=== PATIENT | male | born 1935 | race Caucasian/White ===

== ENCOUNTER 2021-05-01 09:59 | Inpatient (IN) ==
--- NOTE | 2021-05-01 10:36 | Emergency Department Note ---
Altered Mental Status HPI General Chief Complaint: Altered Mental Status Stated Complaint: Altered LOC Time Seen by Provider: 05/01/21 10:07 Source: family Mode of arrival: wheelchair Limitations: altered mental status History of Present Illness HPI Narrative: 85-year-old male was brought in by the daughter of the patient's caregiver. Patient apparently was in a correction. He was brought in for altered mental status unclear duration. He is also having a blood in his urine bag. He was admitted under similar circumstances to [facility] last month. Patient is unresponsive at this time. He does have prior DO NOT RESUSCITATE order on record. It is unclear if he has had any fevers or chills. Patient is unable to provide any history. The patient caregivers daughter is here and she is not exactly sure exactly how long this has been going on. Records were reviewed history of hypertension diabetes COPD he had Covid last year. Hyperlipidemia. He also has history of schizophrenia. He has a chronic urinary Saunders catheter. History of metabolic encephalopathy history of aortic stenosis. He has had hypercapnic respiratory failure in the past. He is on home oxygen. Related Data Home Medications Medication Instructions Recorded Confirmed atenolol 50 mg PO DAILY 09/24/16 04/20/21 furosemide 40 mg PO DAILY 09/24/16 04/20/21 glyburide 5 mg PO BIDAC 09/24/16 04/20/21 lisinopril [Zestril] 20 mg PO DAILY 09/24/16 04/20/21 metformin [Glucophage] 1,000 mg PO BID 09/24/16 04/20/21 potassium chloride [Kdur] 20 meq PO DAILY 09/24/16 04/20/21 spironolactone [Aldactone] 25 mg PO BID 09/24/16 04/20/21 trifluoperazine 2 mg PO TID 09/24/16 04/20/21 acetaminophen 500 mg tablet 1,000 mg PO Q6H PRN 04/20/21 04/20/21 atorvastatin 80 mg tablet 80 mg PO QDAY 04/20/21 04/20/21 fluticasone 250 mcg-salmeterol 50 1 inh INHALATION BID 04/20/21 04/20/21 mcg/dose blistr powdr for inhalation insulin glargine 100 unit/mL (3 16 unit SUBCUT QAM ml 04/20/21 04/20/21 mL) subcutaneous pen melatonin 5 mg capsule mg PO 04/20/21 04/20/21 tamsulosin 0.4 mg capsule 0.4 mg PO QDAY 04/20/21 04/20/21 Allergies Allergy/AdvReac Type Severity Reaction Status Date / Time No Known Drug Allergies Allergy Verified 09/24/16 18:17 Review of Systems ROS ROS Narrative: Unobtainable due to patient being unresponsive PFS Narrative Patient History Narrative: Narrative: Medical/Surgical/Family History All Active Problems (Updated 05/01/21 @ 14:34 by Bryn Salinas MD) Acute and chronic respiratory failure with hypercapnia (Acute) Altered mental status (Acute) Congestive heart failure (Acute) Urine retention (Chronic) Hyperglycemia (Chronic) Pulmonary edema (Chronic) Bacteremia (Chronic) Hyperkalemia (Chronic) Metabolic encephalopathy (Chronic) Aortic stenosis (Chronic) Altered mental status (Chronic) Schizophrenia (Chronic) COPD with acute exacerbation (Chronic) Type 2 diabetes mellitus (Chronic) Left lower lobe pneumonia (Chronic) Acute and chronic respiratory failure with hypercapnia (Chronic) Urinary tract infection (Chronic) Medical History Acute and chronic respiratory failure with hypercapnia Altered mental status Aortic stenosis Bacteremia COPD with acute exacerbation Hyperglycemia Hyperkalemia Left lower lobe pneumonia Metabolic encephalopathy Pulmonary edema Schizophrenia Type 2 diabetes mellitus Urinary tract infection Urine retention Surgical History No pertinent past surgical history Family History Other No pertinent family history Social History Smoking Status: Never smoker Exam Narrative Narrative: Vital Signs reviewed. Constitutional: Obese patient he is sitting partially reclined with his head leaning forward Head: Normocephalic, scab on his frontal scalp unclear if there is been any trauma or if he is just been scratching Eyes: PERRLA, EOMI, no conjunctivitis Ear: Normal external exam Oropharynx: Dry oral mucosa Neck: Supple, no lymphadenopathy, no JVD Lungs: Tachypneic breathing labored breath sounds bilaterally Cardiac: Regular rate and rhythm, normal distal pulses, GI: Soft nontender nondistended no guarding no rebound Musculoskeletal: No tenderness, no deformities, no edema, full range of motion Back: no CVA or midline tenderness Neuro: Patient is unresponsive does not respond to painful or verbal stimuli Psychiatric: Unable to assess Skin: Warm, diaphoretic cap refill less than 2 seconds General Limitations: altered mental status Course Consultations Consultation #1: Case discussed with hospitalist Dr. Irizarry who agrees to see and admit patient. Time: 14:54 Vital Signs Vital signs: Vital Signs Pulse Rate 102 H 05/01/21 10:00 Respiratory Rate 24 H 05/01/21 10:00 Blood Pressure 129/66 05/01/21 10:00 Pulse Oximetry (%) 88 L 05/01/21 10:00 Pulse Rate 106 H 05/01/21 14:16 Respiratory Rate 30 H 05/01/21 14:16 Blood Pressure 121/77 05/01/21 13:46 Pulse Oximetry (%) 95 05/01/21 14:16 MDM MDM Narrative Medical decision making narrative: 85-year-old male history of COPD O2 dependent long-term correction resident presents with decreased level of consciousness and tachypnea over the last [address] scan of the head shows no acute abnormality. Chest x-ray showed congestive heart failure. Patient has a prior DNR DO NOT INTUBATE wishes. Caregiver is here at the bedside does confirm these prior wishes. Patient had pretty similar presentation last month and was found to be acute on chronic hypercarbic respiratory failure which improved on BiPAP. Patient has been placed on BiPAP on arrival here has been no significant change in mental status his oxygenation is improved and he is a little bit less tachycardic. Blood cultures were obtained patient given empirically Zofran for the possibility of aspiration pneumonia. White blood cell elevated 17.1 hemoglobin 12.6 metabolic profile notable for potassium 5.5 CO2 31 BUN 35 creatinine 1.6 glucose of 279. Troponin is 0.03. EKG shows no acute ischemic changes there is atrial fibrillation with rapid response. Patient's decreased level of consciousness is certainly due to the hypercarbic respiratory failure. This is most likely related to congestive heart failure and/or COPD exacerbation. Patient will be admitted to the ICU on BiPAP and given Lasix here. I discussed with the patient medical power of disability attorney and caregiver to the bedside he may not improve and there is a possibility that he may decompensate despite the interventions and may not survive the night. Patient caregiver/medical return is aware of the potential to decompensate and potentially go into a full cardiorespiratory failure. His COVID-19 swab was negative here today. Patient remains in unresponsive with mild improvement in his respiratory status. He will be admitted to the ICU. Condition remains critical. Differential Diagnosis Differential Diagnosis: UTI, metabolic derangement, stroke, psychiatric, hypercarbia, pneumonia Lab Data Result diagrams: 05/01/21 10:52 05/01/21 11:45 Labs: Lab Results 05/01/21 05/01/21 05/01/21 Range/Units 10:52 10:52 10:52 WBC 17.1 H (4.5-11.0) K/mcL RBC 4.44 L (4.63-6.08) M/mcL Hgb 12.6 L (13.7-17.5) g/dL Hct 44.2 (40.1-51.0) % MCV 99.5 (80.0-100.0) fL MCH 28.4 (26.0-34.0) pg MCHC 28.5 L (31.0-36.0) g/dL RDW 13.2 (11.5-14.5) % Plt Count 222 (140-440) K/mcL MPV 10.4 (7.4-10.4) fL Seg Neutrophils % 95 H (38-78) % Lymphocytes % 1 L (15-49) % Monocytes % (Manual) 4 (1-12) % Platelet Estimate Normal (Normal) RBC Morphology Normal (Normal) PT (11.9-14.5) sec INR (0.9-1.1) APTT (20.0-37.0) sec VBG Lactic Acid 0.7 (0.5-2.0) mmol/L Sodium TNP Potassium TNP Chloride TNP Carbon Dioxide TNP Anion Gap TNP BUN TNP Creatinine TNP GFR Calculation TNP Glucose TNP Calcium TNP Total Bilirubin TNP AST TNP ALT TNP Alkaline Phosphatase TNP Ammonia (16-60) umol/L Total Creatine Kinase (24-195) U/L Troponin T (<0.03) ng/mL NT-Pro-B Natriuret Pep (<450.0) pg/mL Total Protein TNP Albumin TNP Globulin TNP Albumin/Globulin Ratio TNP Urine Color Urine Appearance Urine pH Ur Specific [place] Urine Protein Urine Glucose (UA) Urine Ketones Urine Occult Blood Urine Nitrate Urine Bilirubin Prot Sulfosalicylic Acd Urine Urobilinogen Ur Leukocyte Esterase Urine RBC Urine WBC Ur Squamous Epith Cells Urine Bacteria Ur Culture Indicated? Urine Opiates Screen Ur Oxycodone Screen Urine Methadone Screen Ur Barbiturates Screen Ur Phencyclidine Scrn Ur Amphetamines Screen U Benzodiazepines Scrn Urine Cocaine Screen U Marijuana (THC) Screen 05/01/21 05/01/21 05/01/21 Range/Units 10:52 10:52 10:52 WBC (4.5-11.0) K/mcL RBC (4.63-6.08) M/mcL Hgb (13.7-17.5) g/dL Hct (40.1-51.0) % MCV (80.0-100.0) fL MCH (26.0-34.0) pg MCHC (31.0-36.0) g/dL RDW (11.5-14.5) % Plt Count (140-440) K/mcL MPV (7.4-10.4) fL Seg Neutrophils % (38-78) % Lymphocytes % (15-49) % Monocytes % (Manual) (1-12) % Platelet Estimate (Normal) RBC Morphology (Normal) PT (11.9-14.5) sec INR (0.9-1.1) APTT (20.0-37.0) sec VBG Lactic Acid (0.5-2.0) mmol/L Sodium Potassium Chloride Carbon Dioxide Anion Gap BUN Creatinine GFR Calculation Glucose Calcium Total Bilirubin AST ALT Alkaline Phosphatase Ammonia < 10 L (16-60) umol/L Total Creatine Kinase 44 (24-195) U/L Troponin T 0.03 H (<0.03) ng/mL NT-Pro-B Natriuret Pep (<450.0) pg/mL Total Protein Albumin Globulin Albumin/Globulin Ratio Urine Color Urine Appearance Urine pH Ur Specific [place] Urine Protein Urine Glucose (UA) Urine Ketones Urine Occult Blood Urine Nitrate Urine Bilirubin Prot Sulfosalicylic Acd Urine Urobilinogen Ur Leukocyte Esterase Urine RBC Urine WBC Ur Squamous Epith Cells Urine Bacteria Ur Culture Indicated? Urine Opiates Screen Ur Oxycodone Screen Urine Methadone Screen Ur Barbiturates Screen Ur Phencyclidine Scrn Ur Amphetamines Screen U Benzodiazepines Scrn Urine Cocaine Screen U Marijuana (THC) Screen 05/01/21 05/01/21 05/01/21 Range/Units 11:45 11:45 11:45 WBC (4.5-11.0) K/mcL RBC (4.63-6.08) M/mcL Hgb (13.7-17.5) g/dL Hct (40.1-51.0) % MCV (80.0-100.0) fL MCH (26.0-34.0) pg MCHC (31.0-36.0) g/dL RDW (11.5-14.5) % Plt Count (140-440) K/mcL MPV (7.4-10.4) fL Seg Neutrophils % (38-78) % Lymphocytes % (15-49) % Monocytes % (Manual) (1-12) % Platelet Estimate (Normal) RBC Morphology (Normal) PT 14.5 (11.9-14.5) sec INR 1.1 (0.9-1.1) APTT 38.0 H (20.0-37.0) sec VBG Lactic Acid (0.5-2.0) mmol/L Sodium 136 Potassium 5.5 H Chloride 97 Carbon Dioxide 31 H Anion Gap 8.0 BUN 35 H Creatinine 1.6 H GFR Calculation 39 Glucose 279 H Calcium 9.2 Total Bilirubin 0.4 AST 10 ALT 16 Alkaline Phosphatase 116 Ammonia (16-60) umol/L Total Creatine Kinase (24-195) U/L Troponin T (<0.03) ng/mL NT-Pro-B Natriuret Pep 4746.0 H (<450.0) pg/mL Total Protein 6.5 Albumin 3.2 Globulin 3.3 Albumin/Globulin Ratio 1.0 Urine Color Urine Appearance Urine pH Ur Specific [place] Urine Protein Urine Glucose (UA) Urine Ketones Urine Occult Blood Urine Nitrate Urine Bilirubin Prot Sulfosalicylic Acd Urine Urobilinogen Ur Leukocyte Esterase Urine RBC Urine WBC Ur Squamous Epith Cells Urine Bacteria Ur Culture Indicated? Urine Opiates Screen Ur Oxycodone Screen Urine Methadone Screen Ur Barbiturates Screen Ur Phencyclidine Scrn Ur Amphetamines Screen U Benzodiazepines Scrn Urine Cocaine Screen U Marijuana (THC) Screen 05/01/21 05/01/21 Range/Units 12:03 12:03 WBC (4.5-11.0) K/mcL RBC (4.63-6.08) M/mcL Hgb (13.7-17.5) g/dL Hct (40.1-51.0) % MCV (80.0-100.0) fL MCH (26.0-34.0) pg MCHC (31.0-36.0) g/dL RDW (11.5-14.5) % Plt Count (140-440) K/mcL MPV (7.4-10.4) fL Seg Neutrophils % (38-78) % Lymphocytes % (15-49) % Monocytes % (Manual) (1-12) % Platelet Estimate (Normal) RBC Morphology (Normal) PT (11.9-14.5) sec INR (0.9-1.1) APTT (20.0-37.0) sec VBG Lactic Acid (0.5-2.0) mmol/L Sodium Potassium Chloride Carbon Dioxide Anion Gap BUN Creatinine GFR Calculation Glucose Calcium Total Bilirubin AST ALT Alkaline Phosphatase Ammonia (16-60) umol/L Total Creatine Kinase (24-195) U/L Troponin T (<0.03) ng/mL NT-Pro-B Natriuret Pep (<450.0) pg/mL Total Protein Albumin Globulin Albumin/Globulin Ratio Urine Color TNP Urine Appearance TNP Urine pH TNP Ur Specific [place] TNP Urine Protein TNP Urine Glucose (UA) TNP Urine Ketones TNP Urine Occult Blood TNP Urine Nitrate TNP Urine Bilirubin TNP Prot Sulfosalicylic Acd TNP Urine Urobilinogen TNP Ur Leukocyte Esterase TNP Urine RBC TNP Urine WBC TNP Ur Squamous Epith Cells TNP Urine Bacteria TNP Ur Culture Indicated? TNP Urine Opiates Screen TNP Ur Oxycodone Screen TNP Urine Methadone Screen TNP Ur Barbiturates Screen TNP Ur Phencyclidine Scrn TNP Ur Amphetamines Screen TNP U Benzodiazepines Scrn TNP Urine Cocaine Screen TNP U Marijuana (THC) Screen TNP ED POC Tests ED POC Tests: JESSICA - SARS Antigen Negative EKG Data EKG #1: EKG attestation: Yes I reviewed and interpreted this EKG. and Yes There are no EKG findings of acute coronary syndrome EKG results narrative: EKG performed at 1109 shows atrial fibrillation rapid response rate of 108 left axis deviation right bundle branch block nonspecific ST changes Discharge Plan Patient/Caregiver Discharge Instructions Pt seen by [employer] MACHINE OPERATOR/PA only: No Clinical Impression: Acute and chronic respiratory failure with hypercapnia, Altered mental status, Congestive heart failure Patient Disposition: Xfer As Inpt ([facility]) Condition: Critical Follow up with: Nic Schuler DO [Primary Care Provider] - Prescriptions: No Action furosemide 40 MG tablet 40 mg PO DAILY RF: 0 glyburide 5 MG tablet 5 mg PO BIDAC RF: 0 trifluoperazine 2 MG tablet 2 mg PO TID RF: 0 lisinopril [Zestril] 20 MG tablet 20 mg PO DAILY RF: 0 spironolactone [Aldactone] 25 MG tablet 25 mg PO BID RF: 0 potassium chloride [Klor-Con M20] 20 MEQ tablet 20 meq PO DAILY RF: 0 metformin [Glucophage] 1,000 MG tablet 1,000 mg PO BID RF: 0 atenolol 50 MG tablet 50 mg PO DAILY RF: 0 melatonin 5 mg capsule PO RF: 0 atorvastatin [Lipitor] 80 mg tablet 80 mg PO QDAY RF: 0 tamsulosin 0.4 mg capsule 0.4 mg PO QDAY RF: 0 fluticasone propion-salmeterol [Wixela Inhub] 250-50 mcg/dose blister with device 1 inh inhalation BID RF: 0 Lantus Solostar U-100 Insulin 100 unit/mL (3 mL) insulin pen 16 unit subcut QAM RF: 0 acetaminophen [Tylenol Extra Strength] 500 mg tablet 1,000 mg PO Q6H PRNRF: 0
[2021-05-01 11:34] LABS: Hematocrit 44.2 % (40.1-51.0); Hemoglobin 12.6 g/dL (13.7-17.5); Mean Cell Volume 99.5 fL (80.0-100.0); Mean Corpuscular HGB Conc 28.5 g/dL (31.0-36.0); Mean Platelet Volume 10.4 fL (7.4-10.4); Platelet Count 222 K/mcL (140-440); RBC 4.44 M/mcL (4.63-6.08); Red Cell Distribution Width 13.2 % (11.5-14.5); WBC 17.1 K/mcL (4.5-11.0)
[2021-05-01 11:45] LABS: Creatine Kinase 44 U/L (24-195)
[2021-05-01] MEDS ORDERED: cefTRIAXone 1 GM VIAL IV ONE (11:50)
[2021-05-01] MEDS ORDERED: PIPERACILLIN SODIUM/TAZOBACTAM 3.375 GM in DEXTROSE 5% IN WATER 50 ML IV ONE (11:51)
[2021-05-01 12:33] LABS: Lymphocytes % 1 % (15-49); Monocytes % (Manual) 4 % (1-12); Platelet Estimate NORMAL (Normal); RBC Morphology NORMAL (Normal); Segmented Neutrophils % 95 % (38-78)
[2021-05-01 12:34] LABS: ALT/SGPT 16 U/L (<40); AST/SGOT 10 U/L (<40); Albumin 3.2 gm/dL (3.2-5.2); Alkaline Phosphatase 116 U/L (39-117); Bilirubin,Total 0.4 mg/dL (0.1-1.0); Blood Urea Nitrogen 35 mg/dL (8-23); Calcium 9.2 mg/dL (8.6-10.4); Carbon Dioxide 31 mmol/L (22-30); Chloride 97 mmol/L (96-108); Globulin 3.3 gm/dL (2.2-3.7); Glomerular Filtration Rate 39; Glucose 279 mg/dL (70-105)
[2021-05-01 12:50] LABS: INR 1.1 (0.9-1.1); Prothrombin Time 14.5 sec (11.9-14.5)
--- NOTE | 2021-05-01 13:57 | XRay Report ---
HISTORY: Shortness of breath, COPD, decreased level of consciousness FINDINGS: Lung volumes are small due to poor inspiration. There is a diffuse perihilar infiltrate in the central portion of the left lung and a milder infiltrate centrally and inferiorly in the right lung. The heart is moderately enlarged but magnified by portable technique and poor inspiration. There is a dual-chamber pacemaker. The pulmonary vessels are obscured by the alveolar opacities. Small left-sided pleural effusion is present. IMPRESSION: Congestive heart failure with pulmonary edema. Superimposed pneumonia cannot be excluded. Interpreted and Authenticated by: Javier Rojas 05/01/21
--- NOTE | 2021-05-01 14:22 | Cat Scan Report ---
History: Decreased level of consciousness TECHNIQUE: The brain was imaged without contrast in axial plane at 2.5 mm intervals. The radiation exposure was limited using dose reduction technology. FINDINGS: There are age-related degenerative changes with mild generalized atrophy. There are also ill-defined zones of decreased attenuation in the centrum semiovale within the frontal and parietal lobes bilaterally. There is no evidence of an infarct. No hemorrhage or mass effect are present. The ventricles are normal in size. There is no abnormal extra-axial fluid collection. There are calcified plaques in the vertebral arteries and cavernous portions of both carotid arteries at the skull base. There is a 9 mm mucous retention cyst or polyp in the right side of the sphenoid sinus. Remainder of the visualized sinuses are clear. IMPRESSION: Age-related degenerative changes and no acute abnormality is detected. Dr. Salinas was called with the report Interpreted and Authenticated by: Javier Rojas 05/01/21
[2021-05-01] MEDS ORDERED: FUROSEMIDE 40 MG/4 ML VIAL IV ONE (14:29)
--- NOTE | 2021-05-01 15:38 | Internal Med History&Physical ---
HPI History of Present Illness Patient information: Note initiated : 05/01/21 at 3:22 pm Service Date, if different from initiated Date: [] Patient: Vincent Caba a 85 y/o M admitted on for Altered LOC. Chief Complaint: [] History of present illness: Mr. Caba is a 85 year old M Presents the ED after found to have decreased responsiveness at the nursing facility. Patient is accompanied by a power of bed bug exterminator who is a close friend as patient does not have family around. Sounds like he was in his normal state of health until yesterday, the power of bed bug exterminator says the physician at the nursing facility want to get him into see his urologist. Today he sounds like he ate less of his breakfast but with otherwise hearing normal when he became poorly responsive and brought to the ED. In the ED he was found to be hypercapnic with a CO2 of 123 and a pH of 7.1. Chest x-ray with pulmonary edema. Patient unresponsive. Patient was recently admitted to [facility] in March for a hypercapnic respiratory failure was put on BiPAP steroids and antibiotics at that time and he had urinary retention so House catheter was placed and has been following with Dr. Stewart outpatient. He has a pacemaker for history of complete heart block. Covid test in the ED was negative. Unable to gather review of systems given the patient's mental status. PFSH PFSH All Active Problems (Updated 05/01/21 @ 14:34 by Bryn Salinas MD) Acute and chronic respiratory failure with hypercapnia (Acute) Altered mental status (Acute) Congestive heart failure (Acute) Urine retention (Chronic) Hyperglycemia (Chronic) Pulmonary edema (Chronic) Bacteremia (Chronic) Hyperkalemia (Chronic) Metabolic encephalopathy (Chronic) Aortic stenosis (Chronic) Altered mental status (Chronic) Schizophrenia (Chronic) COPD with acute exacerbation (Chronic) Type 2 diabetes mellitus (Chronic) Left lower lobe pneumonia (Chronic) Acute and chronic respiratory failure with hypercapnia (Chronic) Urinary tract infection (Chronic) Medical History Acute and chronic respiratory failure with hypercapnia Altered mental status Aortic stenosis Bacteremia COPD with acute exacerbation Hyperglycemia Hyperkalemia Left lower lobe pneumonia Metabolic encephalopathy Pulmonary edema Schizophrenia Type 2 diabetes mellitus Urinary tract infection Urine retention Surgical History No pertinent past surgical history Family History Other No pertinent family history MEDS/ALLERGIES Home Medications and Allergies Home Medications Medication Instructions Recorded Confirmed Type atenolol 50 mg PO DAILY 09/24/16 04/20/21 History furosemide 40 mg PO DAILY 09/24/16 04/20/21 History glyburide 5 mg PO BIDAC 09/24/16 04/20/21 History lisinopril [Zestril] 20 mg PO DAILY 09/24/16 04/20/21 History metformin [Glucophage] 1,000 mg PO BID 09/24/16 04/20/21 History potassium chloride [Kdur] 20 meq PO DAILY 09/24/16 04/20/21 History spironolactone [Aldactone] 25 mg PO BID 09/24/16 04/20/21 History trifluoperazine 2 mg PO TID 09/24/16 04/20/21 History acetaminophen 500 mg tablet 1,000 mg PO Q6H PRN 04/20/21 04/20/21 History atorvastatin 80 mg tablet 80 mg PO QDAY 04/20/21 04/20/21 History fluticasone 250 mcg-salmeterol 50 1 inh INHALATION BID 04/20/21 04/20/21 History mcg/dose blistr powdr for inhalation insulin glargine 100 unit/mL (3 16 unit SUBCUT QAM ml 04/20/21 04/20/21 History mL) subcutaneous pen melatonin 5 mg capsule mg PO 04/20/21 04/20/21 History tamsulosin 0.4 mg capsule 0.4 mg PO QDAY 04/20/21 04/20/21 History Allergies Allergy/AdvReac Type Severity Reaction Status Date / Time No Known Drug Allergies Allergy Verified 09/24/16 18:17 EXAM Constitutional Vitals: Pulse Resp BP Pulse Ox 65 10 L 109/56 98 05/01/21 15:18 05/01/21 15:18 05/01/21 15:18 05/01/21 15:18 Exam: General: Unresponsive and on BiPAP, obese Eyes/N/T: PERRL, Head/Neck: neck supple, normocephalic atraumatic, JVD CV: Regular with occasional irregularity, No murmurs, normal s1/s2 Pulm: Severely diminished b/l, no wheezing Abd: soft, nontender, +BS x4 Ext: no clubbing/cyanosis, 2-3+ b/l LE edema Neuro: Patient unresponsive at this time including to touch and voice. Skin: warm/dry DATA Data Completed and Pending Labs: Labs from last 24 hours 05/01/21 05/01/21 05/01/21 12:03 12:03 11:45 WBC RBC Hgb Hct MCV MCH MCHC RDW Plt Count MPV Seg Neutrophils % Lymphocytes % Monocytes % (Manual) Platelet Estimate RBC Morphology PT INR APTT VBG Lactic Acid Sodium 136 Potassium 5.5 H Chloride 97 Carbon Dioxide 31 H Anion Gap 8.0 BUN 35 H Creatinine 1.6 H GFR Calculation 39 Glucose 279 H Calcium 9.2 Total Bilirubin 0.4 AST 10 ALT 16 Alkaline Phosphatase 116 Ammonia Total Creatine Kinase Troponin T NT-Pro-B Natriuret Pep Total Protein 6.5 Albumin 3.2 Globulin 3.3 Albumin/Globulin Ratio 1.0 Urine Color TNP Urine Appearance TNP Urine pH TNP Ur Specific [place] TNP Urine Protein TNP Urine Glucose (UA) TNP Urine Ketones TNP Urine Occult Blood TNP Urine Nitrate TNP Urine Bilirubin TNP Prot Sulfosalicylic Acd TNP Urine Urobilinogen TNP Ur Leukocyte Esterase TNP Urine RBC TNP Urine WBC TNP Ur Squamous Epith Cells TNP Urine Bacteria TNP Ur Culture Indicated? TNP Urine Opiates Screen TNP Ur Opiates Confirm Pending Ur Oxycodone Screen TNP Urine Methadone Screen TNP Ur Methadone Confirm Pending Ur Barbiturates Screen TNP Ur Barbiturate Confirm Pending Ur Phencyclidine Scrn TNP Urine PCP Confirm Pending Ur Amphetamines Screen TNP U Amphetamines Confirm Pending U Benzodiazepines Scrn TNP U Benzodiazepine Confm Pending Urine Cocaine Screen TNP Urine Cocaine Confirm Pending U Cannabinoids Confirm Pending U Marijuana (THC) Screen TNP 05/01/21 05/01/21 05/01/21 11:45 11:45 10:52 WBC RBC Hgb Hct MCV MCH MCHC RDW Plt Count MPV Seg Neutrophils % Lymphocytes % Monocytes % (Manual) Platelet Estimate RBC Morphology PT 14.5 INR 1.1 APTT 38.0 H VBG Lactic Acid Sodium Potassium Chloride Carbon Dioxide Anion Gap BUN Creatinine GFR Calculation Glucose Calcium Total Bilirubin AST ALT Alkaline Phosphatase Ammonia Total Creatine Kinase Troponin T 0.03 H NT-Pro-B Natriuret Pep 4746.0 H Total Protein Albumin Globulin Albumin/Globulin Ratio Urine Color Urine Appearance Urine pH Ur Specific [place] Urine Protein Urine Glucose (UA) Urine Ketones Urine Occult Blood Urine Nitrate Urine Bilirubin Prot Sulfosalicylic Acd Urine Urobilinogen Ur Leukocyte Esterase Urine RBC Urine WBC Ur Squamous Epith Cells Urine Bacteria Ur Culture Indicated? Urine Opiates Screen Ur Opiates Confirm Ur Oxycodone Screen Urine Methadone Screen Ur Methadone Confirm Ur Barbiturates Screen Ur Barbiturate Confirm Ur Phencyclidine Scrn Urine PCP Confirm Ur Amphetamines Screen U Amphetamines Confirm U Benzodiazepines Scrn U Benzodiazepine Confm Urine Cocaine Screen Urine Cocaine Confirm U Cannabinoids Confirm U Marijuana (THC) Screen 05/01/21 05/01/21 05/01/21 10:52 10:52 10:52 WBC 17.1 H RBC 4.44 L Hgb 12.6 L Hct 44.2 MCV 99.5 MCH 28.4 MCHC 28.5 L RDW 13.2 Plt Count 222 MPV 10.4 Seg Neutrophils % 95 H Lymphocytes % 1 L Monocytes % (Manual) 4 Platelet Estimate Normal RBC Morphology Normal PT INR APTT VBG Lactic Acid Sodium Potassium Chloride Carbon Dioxide Anion Gap BUN Creatinine GFR Calculation Glucose Calcium Total Bilirubin AST ALT Alkaline Phosphatase Ammonia < 10 L Total Creatine Kinase 44 Troponin T NT-Pro-B Natriuret Pep Total Protein Albumin Globulin Albumin/Globulin Ratio Urine Color Urine Appearance Urine pH Ur Specific [place] Urine Protein Urine Glucose (UA) Urine Ketones Urine Occult Blood Urine Nitrate Urine Bilirubin Prot Sulfosalicylic Acd Urine Urobilinogen Ur Leukocyte Esterase Urine RBC Urine WBC Ur Squamous Epith Cells Urine Bacteria Ur Culture Indicated? Urine Opiates Screen Ur Opiates Confirm Ur Oxycodone Screen Urine Methadone Screen Ur Methadone Confirm Ur Barbiturates Screen Ur Barbiturate Confirm Ur Phencyclidine Scrn Urine PCP Confirm Ur Amphetamines Screen U Amphetamines Confirm U Benzodiazepines Scrn U Benzodiazepine Confm Urine Cocaine Screen Urine Cocaine Confirm U Cannabinoids Confirm U Marijuana (THC) Screen 05/01/21 05/01/21 10:52 10:52 WBC RBC Hgb Hct MCV MCH MCHC RDW Plt Count MPV Seg Neutrophils % Lymphocytes % Monocytes % (Manual) Platelet Estimate RBC Morphology PT INR APTT VBG Lactic Acid 0.7 Sodium TNP Potassium TNP Chloride TNP Carbon Dioxide TNP Anion Gap TNP BUN TNP Creatinine TNP GFR Calculation TNP Glucose TNP Calcium TNP Total Bilirubin TNP AST TNP ALT TNP Alkaline Phosphatase TNP Ammonia Total Creatine Kinase Troponin T NT-Pro-B Natriuret Pep Total Protein TNP Albumin TNP Globulin TNP Albumin/Globulin Ratio TNP Urine Color Urine Appearance Urine pH Ur Specific [place] Urine Protein Urine Glucose (UA) Urine Ketones Urine Occult Blood Urine Nitrate Urine Bilirubin Prot Sulfosalicylic Acd Urine Urobilinogen Ur Leukocyte Esterase Urine RBC Urine WBC Ur Squamous Epith Cells Urine Bacteria Ur Culture Indicated? Urine Opiates Screen Ur Opiates Confirm Ur Oxycodone Screen Urine Methadone Screen Ur Methadone Confirm Ur Barbiturates Screen Ur Barbiturate Confirm Ur Phencyclidine Scrn Urine PCP Confirm Ur Amphetamines Screen U Amphetamines Confirm U Benzodiazepines Scrn U Benzodiazepine Confm Urine Cocaine Screen Urine Cocaine Confirm U Cannabinoids Confirm U Marijuana (THC) Screen A/P Narrative A/P Narrative: A: *Acute on chronic hypoxic/hypercapnic respiratory failure: likely 2/2 CHF & -covid neg *Acute on chronic diastolic (grade II) CHF w/Pulm edema: -on BB/ACEI/Lasix/aldactone @home *moderate Aoritc Stenosis: contrubiting to above *Encephalopathy: 2/2 above -CT brain no acute *COPD (on prn O2@facility): *Hematuria with h/o UR with BPH and House in place since march *Leukocytosis: Infectious versus reactive *CKD IIIB: stable *Anemia, chronic: *DM: *HTN/HLD: BB/ACEI/Lasix/aldactone @home *h/o schizophrenia: on Trifluoperazine *Obese *Generalized weakness/deconditioning/poor functional status: Has been wheelchair-bound since August 2019 P: -Bipap, wean as able -f/u ABG -IV diuresis -empric abx for now -check crp/pct/man diff and SC in search of infection -check rvp -basal and SSI -pulmicort nebs until able to use own IH's -restart BB when euvolemic, ACEI held for low BP -f/u with urology, maintain house -PT/OT -ppx: SCD (hold chemical given gross hematuria) DNR per POA Time Spent With Patient Time: Total time spent is greater than 50% in coordination of care (as documented) at patient's floor/unit and/or counseling patient:
[2021-05-01] MEDS ORDERED: DEXTROSE 31 GM ORAL.SUSP PO PRN (16:33)
[2021-05-01] MEDS ORDERED: MAGNESIUM SULFATE 2 GM/50 ML BAG IV PRN (16:33)
[2021-05-01] MEDS ORDERED: METOCLOPRAMIDE 10 MG/2 ML VIAL IV PRN (16:33)
[2021-05-01] MEDS ORDERED: DEXTROSE 50% 50 ML VIAL IV PRN (16:33)
[2021-05-01] MEDS ORDERED: POTASSIUM CHLORIDE 40 MEQ in DEXTROSE 5% IN WATER 500 ML IV PRN (16:33)
[2021-05-01] MEDS ORDERED: POTASSIUM CHLORIDE 20 MEQ TABLET PO PRN ×2 (16:33)
[2021-05-01] MEDS ORDERED: ONDANSETRON 4 MG/2 ML VIAL IV PRN (16:33)
[2021-05-01] MEDS ORDERED: METOPROLOL TARTRATE 5 MG/5 ML VIAL IV PRN (16:33)
[2021-05-01] MEDS ORDERED: ACETAMINOPHEN 325 MG TABLET PO PRN (16:33)
[2021-05-01 17:10] LABS: Appearance,Urine TURBID (Clear); Bacteria,Urine MANY /hpf (0); Bilirubin,Urine Negative (Negative); Color,Urine AMBER; Culture Indicated,Urine yes; Glucose,Urine (UA) >=500 mg/dL (Negative); Ketones,Urine Negative (Negative); Leukocyte Esterase,Urine 75 /ug (Negative); Mucus,Urine MOD /hpf; Nitrate,Urine Negative (Negative); Protein,Urine 100 mg/dL (Negative); Specific Gravity,Urine 1.018 (1.000-1.035); Urine Blood >=1.0 mg/dL (Negative); Urine RBC > 182 /hpf (0-1); Urine Squamous Epithelial Cell 0 /hpf (0-4); Urine WBC > 182 /hpf (0-4); Urobilinogen,Urine Negative
[2021-05-01] MEDS: INSULIN LISPRO 1 UNIT/0.01 ML UNIT SQ SCH (17:57)
[2021-05-01] MEDS: PIPERACILLIN SODIUM/TAZOBACTAM 3.375 GM in DEXTROSE 5% IN WATER 50 ML IV SCH (18:01)
[2021-05-01 18:32] LABS: Hypochromasia 2+ (None Seen); Lymphocytes % 3 % (15-49); Monocytes % (Manual) 9 % (1-12); Platelet Estimate NORMAL (Normal); RBC Morphology ABNORMAL (Normal); Segmented Neutrophils % 88 % (38-78)
[2021-05-01] MEDS: BUDESONIDE 0.5 MG/2 ML AMPUL.NEB NEB SCH ×2 (19:41→20:50)
[2021-05-01 19:42] LABS: Amphetamine Screen,Urine None detected; Barbiturate Screen,Urine None detected; Benzodiazepines Screen,Urine None detected; Cannabinoid Screen,Urine None detected; Cocaine Screen,Urine None detected; Opiate Screen,Urine None detected; Oxycodone, Urine Screen None detected; Phencyclidine Screen,Urine None detected
[2021-05-01] MEDS: IPRATROPIUM/ALBUTEROL 3 ML AMPUL.NEB NEB PRN (20:50)
[2021-05-01] MEDS ORDERED: TRIFLUOPERAZINE 2 MG PO SCH (21:00)
[2021-05-01] MEDS: INSULIN GLARGINE, HUMAN 1 UNIT/0.01 ML SQ SCH (21:32)
[2021-05-01] MEDS: 0.9 % SODIUM CHLORIDE 10 ML SYRINGE IV SCH (21:33)
[2021-05-01] MEDS: FUROSEMIDE 40 MG/4 ML VIAL IV SCH (21:33)
[2021-05-01] MEDS: MELATONIN 3 MG TABLET PO SCH (21:34)
[2021-05-01] MEDS: ATORVASTATIN 40 MG TABLET PO SCH (21:35)
[2021-05-01] MEDS: DOCUSATE SODIUM 100 MG CAPSULE PO SCH (21:35)
[2021-05-01] MEDS: FLUTICASONE/SALMETEROL 250/50 INHALER #14 INH SCH (21:40)
[2021-05-02] MEDS: INSULIN LISPRO 1 UNIT/0.01 ML UNIT SQ SCH ×5 (01:10→23:50)
[2021-05-02] MEDS: PIPERACILLIN SODIUM/TAZOBACTAM 3.375 GM in DEXTROSE 5% IN WATER 50 ML IV SCH ×5 (01:13→23:43)
[2021-05-02] MEDS: 0.9 % SODIUM CHLORIDE 10 ML SYRINGE IV SCH ×3 (05:32→21:04)
[2021-05-02 06:59] LABS: Hematocrit 38.9 % (40.1-51.0); Hemoglobin 11.3 g/dL (13.7-17.5); Mean Cell Volume 95.1 fL (80.0-100.0); Mean Platelet Volume 10.7 fL (7.4-10.4); Platelet Count 211 K/mcL (140-440); RBC 4.09 M/mcL (4.63-6.08); Red Cell Distribution Width 13.1 % (11.5-14.5); WBC 14.6 K/mcL (4.5-11.0)
[2021-05-02] MEDS: FLUTICASONE/SALMETEROL 250/50 INHALER #14 INH SCH ×2 (07:23→20:56)
[2021-05-02 07:55] LABS: ALT/SGPT 13 U/L (<40); AST/SGOT 10 U/L (<40); Albumin/Globulin Ratio 1.1 (1.0-2.3); Alkaline Phosphatase 86 U/L (39-117); Bilirubin,Direct < 0.2 mg/dL (0-0.3); Bilirubin,Total 0.3 mg/dL (0.1-1.0); Blood Urea Nitrogen 46 mg/dL (8-23); Carbon Dioxide 33 mmol/L (22-30); Chloride 98 mmol/L (96-108); Globulin 2.8 gm/dL (2.2-3.7); Glomerular Filtration Rate 28; Glucose 114 mg/dL (70-105); Lactate Dehydrogenase 188 U/L (135-225); Phosphorous 4.8 mg/dL (2.5-4.5); Triglycerides 62 mg/dL (<150); Uric Acid 6.3 mg/dL (2.5-8.0)
--- NOTE | 2021-05-02 08:31 | Internal Med Progress Note ---
SUBJECTIVE Subjective Patient information: Note initiated : 05/02/21 at 8:29 am Service Date, if different from initiated Date: [] Patient: Vincent Caba 85 y/o M admitted on 05/01/21 for Altered LOC. Chief Complaint: [] Interval history: History of present illness: Mr. Caba is a 85 year old M Presents the ED after found to have decreased responsiveness at the nursing facility. Patient is accompanied by a power of mud analysis well logging operator who is a close friend as patient does not have family around. Sounds like he was in his normal state of health until yesterday, the power of mud analysis well logging operator says the physician at the nursing facility want to get him into see his urologist. Today he sounds like he ate less of his breakfast but with otherwise hearing normal when he became poorly responsive and brought to the ED. In the ED he was found to be hypercapnic with a CO2 of 123 and a pH of 7.1. Chest x-ray with pulmonary edema. Patient unresponsive. Patient was recently admitted to [facility] in March for a hypercapnic respiratory failure was put on BiPAP steroids and antibiotics at that time and he had urinary retention so House catheter was placed and has been following with Dr. Stewart outpatient. He has a pacemaker for history of complete heart block. Covid test in the ED was negative. 05/02 Patient opening his eyes and responding now. House flushed several times through the night and is now draining clear yellow fluid instead of hematuria. On BiPAP and difficult to obtain review of systems but is nodding head to occasional questions and following commands Constitutional Vitals: Vital Signs Temp Pulse Resp BP Pulse Ox 98.4 F 121 H 38 H 98/64 98 05/02/21 08:01 05/02/21 07:20 05/02/21 08:01 05/02/21 08:01 05/02/21 08:01 Period Temp Pulse Resp BP Sys/Kulkarni Pulse Ox Last 24 Hr 95.8 F-98.4 F 31-130 0-45 83-166/49-115 83-100 Intake and Output 05/01/21 05/02/21 05/02/21 21:59 05:59 13:59 Intake Total 100 50 50 Output Total 500 200 75 Balance -400 -150 -25 Weight 111.312 kg Intake & Output: Intake & Output 05/01/21 05/02/21 05/02/21 21:59 05:59 13:59 Intake Total 100 50 50 Output Total 500 200 75 Balance -400 -150 -25 Weight 111.312 kg Intake: IV 100 50 50 Zosyn 3.375 gm In Dextrose 5% 100 50 50 in Water 50 ml @ 100 mls/hr IV Q6H [facility] Rx#:[id number] Output: Urine Catheter Amount 500 200 75 Other: Urine Appearance Sediment Cloudy Clear Hematuria Sediment Large Blood Clots Hematuria Small Blood Clots Uretheral (House) Hematuria Urine Color Light Hillary Dark Hillary Bright Yellow Red Brown Dark Red Urine Odor Normal Normal Exam: General: Patient drowsy but awakens to voice, no acute distress eyes/N/T: EOMI head/Neck: neck supple, JVD CV: Regular with occasional irregularity, No murmurs, Pulm: Severely diminished b/l initially but much better aeration now, no wheezing Abd: soft, nontender, +BS x4 Ext: no clubbing/cyanosis, 2-3+ b/l LE edema Neuro: Awakens to voice follows commands and nods head to questions Skin: warm/dry OBJ DATA Labs CBC & Chem 7: 05/02/21 05:41 05/02/21 05:41 Labs: Abnormal Lab Results 05/02/21 05/02/21 05/01/21 05:41 05:41 17:30 WBC 14.6 H RBC 4.09 L Hgb 11.3 L Hct 38.9 L MCHC 29.0 L MPV 10.7 H Seg Neutrophils % 88 H Lymphocytes % 3 L RBC Morphology Abnormal A Hypochromasia 2+ A APTT Potassium Carbon Dioxide 33 H BUN 46 H Creatinine 2.1 H Glucose 114 H Phosphorus 4.8 H Ammonia Troponin T C-Reactive Protein NT-Pro-B Natriuret Pep 8258.0 H Total Protein 5.8 L Albumin 3.0 L Procalcitonin Urine Appearance Urine Protein Urine Glucose (UA) Urine Occult Blood Ur Leukocyte Esterase Urine RBC Urine WBC Urine Bacteria Urine Mucus 05/01/21 05/01/21 05/01/21 16:09 15:56 15:34 WBC RBC Hgb Hct MCHC MPV Seg Neutrophils % Lymphocytes % RBC Morphology Hypochromasia APTT Potassium Carbon Dioxide BUN Creatinine Glucose Phosphorus Ammonia Troponin T C-Reactive Protein 13.80 H NT-Pro-B Natriuret Pep Total Protein Albumin Procalcitonin 0.35 H Urine Appearance Turbid A Urine Protein 100 A Urine Glucose (UA) >=500 A Urine Occult Blood >=1.0 A Ur Leukocyte Esterase 75 A Urine RBC > 182 H Urine WBC > 182 H Urine Bacteria Many A Urine Mucus Mod A 05/01/21 05/01/21 05/01/21 11:45 11:45 11:45 WBC RBC Hgb Hct MCHC MPV Seg Neutrophils % Lymphocytes % RBC Morphology Hypochromasia APTT 38.0 H Potassium 5.5 H Carbon Dioxide 31 H BUN 35 H Creatinine 1.6 H Glucose 279 H Phosphorus Ammonia Troponin T C-Reactive Protein NT-Pro-B Natriuret Pep 4746.0 H Total Protein Albumin Procalcitonin Urine Appearance Urine Protein Urine Glucose (UA) Urine Occult Blood Ur Leukocyte Esterase Urine RBC Urine WBC Urine Bacteria Urine Mucus 05/01/21 05/01/21 05/01/21 10:52 10:52 10:52 WBC 17.1 H RBC 4.44 L Hgb 12.6 L Hct MCHC 28.5 L MPV Seg Neutrophils % 95 H Lymphocytes % 1 L RBC Morphology Hypochromasia APTT Potassium Carbon Dioxide BUN Creatinine Glucose Phosphorus Ammonia < 10 L Troponin T 0.03 H C-Reactive Protein NT-Pro-B Natriuret Pep Total Protein Albumin Procalcitonin Urine Appearance Urine Protein Urine Glucose (UA) Urine Occult Blood Ur Leukocyte Esterase Urine RBC Urine WBC Urine Bacteria Urine Mucus Meds: Medications Acetaminophen (Acetaminophen 325 Mg Tablet) 650 mg PO Q6HP PRN PRN Reason: PAIN/FEVER > 101 Albuterol/Ipratropium (Ipratropium/Albuterol 3 Ml Ampul.Neb) 3 ml NEB Q4HP PRN PRN Reason: Shortness Of Breath Last Admin: 05/01/21 20:50 Dose: 3 ml Documented by: Atorvastatin Calcium (Atorvastatin 40 Mg Tablet) 80 mg PO HS MARLEE Last Admin: 05/01/21 21:35 Dose: Not Given Documented by: Budesonide (Budesonide 0.5 Mg/2 Ml Ampul.Neb) 0.5 mg NEB Q12 MARLEE Last Admin: 05/01/21 20:50 Dose: 0.5 mg Documented by: Clopidogrel Bisulfate (Clopidogrel 75 Mg Tablet) 75 mg PO DAILY MARLEE Dextrose (Dextrose 50% 50 Ml Vial) 0 ml IV UD PRN PRN Reason: Hypoglycemia Diagnostic Test (Pha) (Accu-Chek 1 Each Strip) 1 each FS Q6 [facility] Last Admin: 05/02/21 05:40 Dose: 1 each Documented by: Docusate Sodium (Docusate Sodium 100 Mg Capsule) 100 mg PO BID [facility] Last Admin: 05/01/21 21:35 Dose: Not Given Documented by: Enoxaparin Sodium (Enoxaparin 40 Mg/0.4 Ml Syringe) 40 mg SQ DAILY [facility] Furosemide (Furosemide 40 Mg/4 Ml Vial) 40 mg IV Q12 [facility] Last Admin: 05/01/21 21:33 Dose: 40 mg Documented by: Glucose (Dextrose 31 Gm Oral.Susp) 15 gm PO PRN PRN PRN Reason: Hypoglycemia Potassium Chloride 40 meq/ (Dextrose) 520 mls @ 130 mls/hr IV UD PRN PRN Reason: Potassium < 3 Magnesium Sulfate (Magnesium Sulfate) 2 gm in 50 mls @ 50 mls/hr IV UD PRN PRN Reason: Magnesium </= 1.6 Piperacillin Sod/Tazobactam (Sod 3.375 gm/ Dextrose) 50 mls @ 100 mls/hr IV Q6H [facility]; Protocol Last Infusion: 05/02/21 06:10 Dose: Infused Documented by: Insulin Glargine (Insulin Glargine, Human 1 Unit/0.01 Ml) 16 unit SQ HS [facility] Last Admin: 05/01/21 21:32 Dose: 16 units Documented by: Insulin Glargine (Insulin Glargine, Human 1 Unit/0.01 Ml) 17 unit SQ QAM [facility] Insulin Human Lispro (Insulin Lispro 1 Unit/0.01 Ml Unit) 0 unit SQ Q6 [facility]; Protocol Last Admin: 05/02/21 05:41 Dose: Not Given Documented by: Melatonin (Melatonin 3 Mg Tablet) 3 mg PO HS [facility] Last Admin: 05/01/21 21:34 Dose: Not Given Documented by: Metoclopramide HCl (Metoclopramide 10 Mg/2 Ml Vial) 10 mg IV Q6HP PRN PRN Reason: Nausea And Vomiting Metoprolol Tartrate (Metoprolol Tartrate 5 Mg/5 Ml Vial) 5 mg IV Q2HP PRN PRN Reason: Tachyarrhythmias HR>110 Metoprolol Tartrate (Metoprolol Tartrate 25 Mg Tablet) 50 mg PO DAILY [facility] Ondansetron HCl (Ondansetron 4 Mg/2 Ml Vial) 4 mg IV Q4HP PRN PRN Reason: Nausea And Vomiting Trifluoperazine 2 Mg (Tablet) 1 dose PO BID [facility] Polyethylene Glycol (Polyethylene Glycol 3350 17 Gm Packet) 17 gm PO DAILYP PRN PRN Reason: Constipation Potassium Chloride (Potassium Chloride 20 Meq Tablet) 40 meq PO UD PRN PRN Reason: Potssium is 3-3.5 Potassium Chloride (Potassium Chloride 20 Meq Tablet) 40 meq PO UD PRN PRN Reason: Potassium < 3 Fluticasone/Salmeterol (Fluticasone/Salmeterol 250/50 Inhaler #14) 1 puff INH BID [facility] Last Admin: 05/02/21 07:23 Dose: Not Given Documented by: Senna (Sennosides 1 Tablet) 2 tab PO DAILYP PRN PRN Reason: Constipation Sodium Chloride (0.9 % Sodium Chloride 10 Ml Syringe) 10 ml IV Q8 [facility] Last Admin: 05/02/21 05:32 Dose: 10 ml Documented by: Tamsulosin HCl (Tamsulosin 0.4 Mg Capsule) 0.4 mg PO QDAY [facility] A/P Narrative A/P Narrative: A: *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 Much improved -CT brain no acute *COPD (on prn O2@facility): *gross Hematuria with h/o UR with BPH and House in place since march -house changed 04/30 @ outside facility for blockage, hematuria after catheter change but not immediately -house flushed several times last night, now draining clear-yellow urine *UTI, complicated: Leukocytosis improving *CKD IIIB: *Anemia, chronic: *DM: *HTN/HLD: BB/ACEI/Lasix/aldactone @home *h/o schizophrenia: on Trifluoperazine *Obese *Generalized weakness/deconditioning/poor functional status: Has been wheelchair-bound since August 2019 P: -Bipap, wean as able -f/u ABG -IV diuresis -empric abx for now -basal and SSI -pulmicort nebs until able to use own IH's -restart BB, ACEI held for low BP -f/u with urology, maintain house -f/u with cardiology for -PT/OT -ppx: SCD (hold chemical given gross hematuria) DNR per POA Time Spent With Patient Time: Total time spent is greater than 50% in coordination of care (as documented) at patient's floor/unit and/or counseling patient:
[2021-05-02 08:35] LABS: Lymphocytes % 3 % (15-49); Monocytes % (Manual) 7 % (1-12); Myelocytes % 1 %; Platelet Estimate NORMAL (Normal); RBC Morphology NORMAL (Normal); Segmented Neutrophils % 89 % (38-78)
[2021-05-02] MEDS ORDERED: METOPROLOL TARTRATE 25 MG TABLET PO SCH (09:00)
[2021-05-02] MEDS ORDERED: ALBUMIN HUMAN 12.5 GM/50 ML BAG IV ONE (09:00)
[2021-05-02] MEDS: BUDESONIDE 0.5 MG/2 ML AMPUL.NEB NEB SCH ×2 (09:02→22:28)
[2021-05-02] MEDS: FUROSEMIDE 40 MG/4 ML VIAL IV SCH ×2 (09:54→20:57)
[2021-05-02] MEDS: ENOXAPARIN 40 MG/0.4 ML SYRINGE SQ SCH ×2 (09:54→10:11)
[2021-05-02] MEDS: INSULIN GLARGINE, HUMAN 1 UNIT/0.01 ML SQ SCH ×2 (09:54→20:58)
[2021-05-02] MEDS: CLOPIDOGREL 75 MG TABLET PO SCH (09:55)
[2021-05-02] MEDS: TAMSULOSIN 0.4 MG CAPSULE PO SCH (09:55)
[2021-05-02] MEDS: DOCUSATE SODIUM 100 MG CAPSULE PO SCH ×2 (09:55→21:03)
[2021-05-02] MEDS: METOPROLOL TARTRATE 25 MG TABLET PO SCH ×2 (09:55→21:01)
[2021-05-02] MEDS: TRIFLUOPERAZINE 2 MG PO SCH ×2 (09:55→21:01)
--- NOTE | 2021-05-02 10:25 | Ultrasound Report ---
History: Acute kidney injury, evaluate for hydronephrosis FINDINGS: The patient was difficult to scan due to large body habitus and inability to hold his breath. Right kidney measures 6.6 x 7.2 x 12.3 cm and the left measures 5.5 x 6.0 x 10.6 cm. There may be mild hydronephrosis bilaterally. No large stone, large cyst or large mass are seen in either kidney. Smaller lesions could easily be missed. The urinary bladder is decompressed by a Saunders catheter. We are unable to visualize flow of urine through either ureter to the bladder. The bladder wall is abnormally thickened. It measures 1.9 cm anteriorly and 1.3 cm in thickness posteriorly. IMPRESSION: Limited exam with possible mild hydronephrosis bilaterally Abnormally thickened bladder wall. This may be related to chronic bladder outlet obstruction, cystitis or neoplasm. Interpreted and Authenticated by: Javier Rojas 05/02/21
--- NOTE | 2021-05-02 10:38 | XRay Report ---
HISTORY: Follow-up congestive heart failure FINDINGS: Heart is mildly enlarged and has diminished in size since 05/01/21. The congestive heart failure with pulmonary edema has improved but not resolved. There is still an alveolar opacity at the left lung base which could be residual congestive heart failure or underlying pneumonia. Right diaphragm is moderately elevated. The small infiltrate seen inferiorly medially in the right lung base on yesterday's study has also improved. No pleural effusion is seen. IMPRESSION: Improving congestive heart failure Interpreted and Authenticated by: Javier Rojas 05/02/21
[2021-05-02] MEDS: ATORVASTATIN 40 MG TABLET PO SCH (21:00)
[2021-05-02] MEDS: MELATONIN 3 MG TABLET PO SCH (21:01)
[2021-05-03] MEDS: INSULIN LISPRO 1 UNIT/0.01 ML UNIT SQ SCH ×4 (06:13→20:47)
[2021-05-03] MEDS: 0.9 % SODIUM CHLORIDE 10 ML SYRINGE IV SCH ×3 (06:14→20:49)
[2021-05-03] MEDS: PIPERACILLIN SODIUM/TAZOBACTAM 3.375 GM in DEXTROSE 5% IN WATER 50 ML IV SCH ×3 (06:15→17:06)
[2021-05-03] MEDS: FLUTICASONE/SALMETEROL 250/50 INHALER #14 INH SCH ×2 (07:06→20:48)
[2021-05-03 07:15] LABS: Basophils # (Auto) 0.01 K/mcL (0.00-0.30); Basophils % (Auto) 0.1 % (0.0-2.0); Eosinophils # (Auto) 0 K/mcL (0.00-0.70); Eosinophils % (Auto) 0 % (0.0-7.0); Hematocrit 33.1 % (40.1-51.0); Lymphocytes # (Auto) 0.41 K/mcL (1.50-4.80); Lymphocytes % (Auto) 3.8 % (15.5-49.0); Mean Cell Volume 93.5 fL (80.0-100.0); Mean Corpuscular HGB Conc 30.2 g/dL (31.0-36.0); Mean Platelet Volume 10.7 fL (7.4-10.4); Monocytes # (Auto) 0.71 K/mcL (0.10-0.90); Monocytes % (Auto) 6.6 % (1.0-12.0); Neutrophils % (Auto) 89.5 % (38.0-78.0); Platelet Count 195 K/mcL (140-440); RBC 3.54 M/mcL (4.63-6.08); Red Cell Distribution Width 12.9 % (11.5-14.5); WBC 10.8 K/mcL (4.5-11.0)
[2021-05-03] MEDS: IPRATROPIUM/ALBUTEROL 3 ML AMPUL.NEB NEB PRN (07:17)
--- NOTE | 2021-05-03 07:36 | Internal Med Progress Note ---
SUBJECTIVE Subjective Patient information: Note initiated : 05/03/21 at 7:34 am Service Date, if different from initiated Date: [] Patient: Vincent Caba 85 y/o M admitted on 05/01/21 for Altered LOC. Chief Complaint: [] Interval history: History of present illness: Mr. Caba is a 85 year old M Presents the ED after found to have decreased responsiveness at the nursing facility. Patient is accompanied by a power of disc pad plate filler who is a close friend as patient does not have family around. Sounds like he was in his normal state of health until yesterday, the power of disc pad plate filler says the physician at the nursing facility want to get him into see his urologist. Today he sounds like he ate less of his breakfast but with otherwise hearing normal when he became poorly responsive and brought to the ED. In the ED he was found to be hypercapnic with a CO2 of 123 and a pH of 7.1. Chest x-ray with pulmonary edema. Patient unresponsive. Patient was recently admitted to [facility] in March for a hypercapnic respiratory failure was put on BiPAP steroids and antibiotics at that time and he had urinary retention so House catheter was placed and has been following with Dr. Stewart outpatient. He has a pacemaker for history of complete heart block. Covid test in the ED was negative. 05/02 Patient opening his eyes and responding now. House flushed several times through the night and is now draining clear yellow fluid instead of hematuria. 05/03 More alert and awake. Creatinine bumped again today. Will hold diuretics for now. Take off BiPAP and after an hour or so check of VBG. Awaiting urine culture. Has occasional cough but denies shortness of breath or other complaints. Review of Systems: denies headache/fever/chills/nausea/vomiting/chest or abdominal pain/diarrhea. Otherwise see above. Constitutional Vitals: Vital Signs Temp Pulse Resp BP Pulse Ox 97.3 F 95 H 14 97/63 100 05/03/21 04:01 05/02/21 22:15 05/03/21 04:01 05/03/21 07:01 05/03/21 07:01 Period Temp Pulse Resp BP Sys/Kulkarni Pulse Ox Last 24 Hr 97.3 F-98.4 F 95-121 4-38 75-122/53-74 93-100 Intake and Output 08/21/21 08/22/21 08/22/21 21:59 05:59 13:59 Intake Total 530 50 50 Output Total 240 140 30 Balance 290 -90 20 Weight 112.309 kg Intake & Output: Intake & Output 05/02/21 05/03/21 05/03/21 21:59 05:59 13:59 Intake Total 530 50 50 Output Total 240 140 30 Balance 290 -90 20 Weight 112.309 kg Intake: IV 50 50 50 Zosyn 3.375 gm In Dextrose 5% 50 50 50 in Water 50 ml @ 100 mls/hr IV Q6H [facility] Rx#:[id number] Oral 480 0 Output: Urine Catheter Amount 240 140 30 Other: Urine Appearance Sediment Sediment Clear Uretheral (House) Clear Urine Color Red Brown Red Brown Dark Yellow Uretheral (House) Light Hillary Urine Odor Normal Uretheral (House) Normal Exam: General: alert and awake, no acute distress eyes/N/T: EOMI head/Neck: neck supple, CV: Regular with occasional irregularity, No murmurs, Pulm: better aeration right, left still diminished, no wheezing Abd: soft, nontender, +BS x4 Ext: no clubbing/cyanosis, 2+ b/l LE edema Neuro: alert and Awake, follows commands, moves extremities skin: warm/dry OBJ DATA Labs CBC & Chem 7: 05/03/21 05:52 05/03/21 05:53 Labs: Abnormal Lab Results 05/03/21 05/02/21 05/02/21 05:52 05:41 05:41 WBC 14.6 H RBC 3.54 L 4.09 L Hgb 10.0 L 11.3 L Hct 33.1 L 38.9 L MCHC 30.2 L 29.0 L MPV 10.7 H 10.7 H Neut % (Auto) 89.5 H Lymph % (Auto) 3.8 L Lymph # (Auto) 0.41 L Seg Neutrophils % 89 H Lymphocytes % 3 L Absolute Neutrophils 9.68 H RBC Morphology Hypochromasia APTT Potassium Carbon Dioxide 33 H BUN 46 H Creatinine 2.1 H Glucose 114 H Phosphorus 4.8 H Ammonia Troponin T C-Reactive Protein NT-Pro-B Natriuret Pep 8258.0 H Total Protein 5.8 L Albumin 3.0 L Procalcitonin Urine Appearance Urine Protein Urine Glucose (UA) Urine Occult Blood Ur Leukocyte Esterase Urine RBC Urine WBC Urine Bacteria Urine Mucus 05/01/21 05/01/21 05/01/21 17:30 16:09 15:56 WBC RBC Hgb Hct MCHC MPV Neut % (Auto) Lymph % (Auto) Lymph # (Auto) Seg Neutrophils % 88 H Lymphocytes % 3 L Absolute Neutrophils RBC Morphology Abnormal A Hypochromasia 2+ A APTT Potassium Carbon Dioxide BUN Creatinine Glucose Phosphorus Ammonia Troponin T C-Reactive Protein 13.80 H NT-Pro-B Natriuret Pep Total Protein Albumin Procalcitonin Urine Appearance Turbid A Urine Protein 100 A Urine Glucose (UA) >=500 A Urine Occult Blood >=1.0 A Ur Leukocyte Esterase 75 A Urine RBC > 182 H Urine WBC > 182 H Urine Bacteria Many A Urine Mucus Mod A 05/01/21 05/01/21 05/01/21 15:34 11:45 11:45 WBC RBC Hgb Hct MCHC MPV Neut % (Auto) Lymph % (Auto) Lymph # (Auto) Seg Neutrophils % Lymphocytes % Absolute Neutrophils RBC Morphology Hypochromasia APTT 38.0 H Potassium 5.5 H Carbon Dioxide 31 H BUN 35 H Creatinine 1.6 H Glucose 279 H Phosphorus Ammonia Troponin T C-Reactive Protein NT-Pro-B Natriuret Pep Total Protein Albumin Procalcitonin 0.35 H Urine Appearance Urine Protein Urine Glucose (UA) Urine Occult Blood Ur Leukocyte Esterase Urine RBC Urine WBC Urine Bacteria Urine Mucus 05/01/21 05/01/21 05/01/21 11:45 10:52 10:52 WBC RBC Hgb Hct MCHC MPV Neut % (Auto) Lymph % (Auto) Lymph # (Auto) Seg Neutrophils % Lymphocytes % Absolute Neutrophils RBC Morphology Hypochromasia APTT Potassium Carbon Dioxide BUN Creatinine Glucose Phosphorus Ammonia < 10 L Troponin T 0.03 H C-Reactive Protein NT-Pro-B Natriuret Pep 4746.0 H Total Protein Albumin Procalcitonin Urine Appearance Urine Protein Urine Glucose (UA) Urine Occult Blood Ur Leukocyte Esterase Urine RBC Urine WBC Urine Bacteria Urine Mucus 05/01/21 10:52 WBC 17.1 H RBC 4.44 L Hgb 12.6 L Hct MCHC 28.5 L MPV Neut % (Auto) Lymph % (Auto) Lymph # (Auto) Seg Neutrophils % 95 H Lymphocytes % 1 L Absolute Neutrophils RBC Morphology Hypochromasia APTT Potassium Carbon Dioxide BUN Creatinine Glucose Phosphorus Ammonia Troponin T C-Reactive Protein NT-Pro-B Natriuret Pep Total Protein Albumin Procalcitonin Urine Appearance Urine Protein Urine Glucose (UA) Urine Occult Blood Ur Leukocyte Esterase Urine RBC Urine WBC Urine Bacteria Urine Mucus Meds: Medications Acetaminophen (Acetaminophen 325 Mg Tablet) 650 mg PO Q6HP PRN PRN Reason: PAIN/FEVER > 101 Albuterol/Ipratropium (Ipratropium/Albuterol 3 Ml Ampul.Neb) 3 ml NEB Q4HP PRN PRN Reason: Shortness Of Breath Last Admin: 05/03/21 07:17 Dose: 3 ml Documented by: Atorvastatin Calcium (Atorvastatin 40 Mg Tablet) 80 mg PO HS [facility] Last Admin: 05/02/21 21:00 Dose: 80 mg Documented by: Budesonide (Budesonide 0.5 Mg/2 Ml Ampul.Neb) 0.5 mg NEB Q12 [facility] Last Admin: 05/02/21 22:28 Dose: 0.5 mg Documented by: Clopidogrel Bisulfate (Clopidogrel 75 Mg Tablet) 75 mg PO DAILY [facility] Last Admin: 05/02/21 09:55 Dose: 75 mg Documented by: Dextrose (Dextrose 50% 50 Ml Vial) 0 ml IV UD PRN PRN Reason: Hypoglycemia Diagnostic Test (Pha) (Accu-Chek 1 Each Strip) 1 each FS Q6 [facility] Last Admin: 05/03/21 06:00 Dose: 1 each Documented by: Docusate Sodium (Docusate Sodium 100 Mg Capsule) 100 mg PO BID [facility] Last Admin: 05/02/21 21:03 Dose: 100 mg Documented by: Furosemide (Furosemide 40 Mg/4 Ml Vial) 40 mg IV Q12 [facility] Last Admin: 05/02/21 20:57 Dose: 40 mg Documented by: Glucose (Dextrose 31 Gm Oral.Susp) 15 gm PO PRN PRN PRN Reason: Hypoglycemia Potassium Chloride 40 meq/ (Dextrose) 520 mls @ 130 mls/hr IV UD PRN PRN Reason: Potassium < 3 Magnesium Sulfate (Magnesium Sulfate) 2 gm in 50 mls @ 50 mls/hr IV UD PRN PRN Reason: Magnesium </= 1.6 Piperacillin Sod/Tazobactam (Sod 3.375 gm/ Dextrose) 50 mls @ 100 mls/hr IV Q6H [facility]; Protocol Last Infusion: 05/03/21 06:50 Dose: Infused Documented by: Insulin Glargine (Insulin Glargine, Human 1 Unit/0.01 Ml) 16 unit SQ [facility] Last Admin: 05/02/21 20:58 Dose: 16 units Documented by: Insulin Glargine (Insulin Glargine, Human 1 Unit/0.01 Ml) 17 unit SQ QAM [facility] Last Admin: 05/02/21 09:54 Dose: 17 unit Documented by: Insulin Human Lispro (Insulin Lispro 1 Unit/0.01 Ml Unit) 0 unit SQ Q6 [facility]; Protocol Last Admin: 05/03/21 06:13 Dose: Not Given Documented by: Melatonin (Melatonin 3 Mg Tablet) 3 mg PO [facility] Last Admin: 05/02/21 21:01 Dose: 3 mg Documented by: Metoclopramide HCl (Metoclopramide 10 Mg/2 Ml Vial) 10 mg IV Q6HP PRN PRN Reason: Nausea And Vomiting Metoprolol Tartrate (Metoprolol Tartrate 5 Mg/5 Ml Vial) 5 mg IV Q2HP PRN PRN Reason: Tachyarrhythmias HR>110 Last Admin: 05/02/21 17:48 Dose: 5 mg Documented by: Metoprolol Tartrate (Metoprolol Tartrate 25 Mg Tablet) 25 mg PO BID [facility] Last Admin: 05/02/21 21:01 Dose: 25 mg Documented by: Ondansetron HCl (Ondansetron 4 Mg/2 Ml Vial) 4 mg IV Q4HP PRN PRN Reason: Nausea And Vomiting Trifluoperazine 2 Mg (Tablet) 1 dose PO BID [facility] Last Admin: 05/02/21 21:01 Dose: Not Given Documented by: Polyethylene Glycol (Polyethylene Glycol 3350 17 Gm Packet) 17 gm PO DAILYP PRN PRN Reason: Constipation Potassium Chloride (Potassium Chloride 20 Meq Tablet) 40 meq PO UD PRN PRN Reason: Potssium is 3-3.5 Potassium Chloride (Potassium Chloride 20 Meq Tablet) 40 meq PO UD PRN PRN Reason: Potassium < 3 Fluticasone/Salmeterol (Fluticasone/Salmeterol 250/50 Inhaler #14) 1 puff INH BID [facility] Last Admin: 05/03/21 07:06 Dose: Not Given Documented by: Senna (Sennosides 1 Tablet) 2 tab PO DAILYP PRN PRN Reason: Constipation Sodium Chloride (0.9 % Sodium Chloride 10 Ml Syringe) 10 ml IV Q8 [facility] Last Admin: 05/03/21 06:14 Dose: 10 ml Documented by: Tamsulosin HCl (Tamsulosin 0.4 Mg Capsule) 0.4 mg PO QDAY [facility] Last Admin: 05/02/21 09:55 Dose: 0.4 mg Documented by: A/P Narrative A/P Narrative: A: *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 was off most of day yesterday -f/u VBG -encourage IS -hold lasix for now, give prn - pending f/u chemistry -abx pending UC/SC. house debris sent for path -basal and SSI -pulmicort nebs until able to use own IH's -cont plavix -restart BB, ACEI held for low BP -f/u with urology, maintain house -f/u with cardiology for -f/u with pulmonolgy for LISA eval / sleep study -PT/OT -ppx: SCD (hold chemical given gross hematuria) DNR per POA Time Spent With Patient Time: Total time spent is greater than 50% in coordination of care (as documented) at patient's floor/unit and/or counseling patient:
[2021-05-03] MEDS: BUDESONIDE 0.5 MG/2 ML AMPUL.NEB NEB SCH ×2 (08:13→20:48)
[2021-05-03 08:16] LABS: ALT/SGPT 13 U/L (<40); AST/SGOT 12 U/L (<40); Albumin 2.7 gm/dL (3.2-5.2); Alkaline Phosphatase 84 U/L (39-117); Bilirubin,Direct < 0.2 mg/dL (0-0.3); Bilirubin,Total 0.4 mg/dL (0.1-1.0); Blood Urea Nitrogen 61 mg/dL (8-23); Calcium 8.3 mg/dL (8.6-10.4); Carbon Dioxide 30 mmol/L (22-30); Chloride 95 mmol/L (96-108); Globulin 2.6 gm/dL (2.2-3.7); Glomerular Filtration Rate 21; Glucose 118 mg/dL (70-105); Lactate Dehydrogenase 183 U/L (135-225); Phosphorous 3.8 mg/dL (2.5-4.5); Triglycerides 69 mg/dL (<150); Uric Acid 6.9 mg/dL (2.5-8.0)
[2021-05-03] MEDS: TAMSULOSIN 0.4 MG CAPSULE PO SCH (08:20)
[2021-05-03] MEDS: CLOPIDOGREL 75 MG TABLET PO SCH (08:20)
[2021-05-03] MEDS: METOPROLOL TARTRATE 25 MG TABLET PO SCH ×2 (08:20→20:46)
[2021-05-03] MEDS: DOCUSATE SODIUM 100 MG CAPSULE PO SCH ×2 (08:20→20:45)
[2021-05-03] MEDS: TRIFLUOPERAZINE 2 MG PO SCH ×2 (08:20→20:48)
[2021-05-03] MEDS: INSULIN GLARGINE, HUMAN 1 UNIT/0.01 ML SQ SCH ×2 (08:21→20:47)
[2021-05-03] MEDS ORDERED: ENOXAPARIN 40 MG/0.4 ML SYRINGE SQ SCH (09:00)
--- NOTE | 2021-05-03 09:41 | XRay Report ---
HISTORY: Follow-up congestive heart failure FINDINGS: Ill-defined alveolar opacities are present throughout both lungs. The greatest consolidation is behind the left heart border. These have improved compared with prior exams on 05/01/2021 and 05/02/2021. The elevation of the right diaphragm has improved since yesterday. The heart remains mildly enlarged. Pulmonary vessels are obscured by the alveolar opacities. IMPRESSION: improving alveolar opacities in both lungs which may be congestive heart failure, pneumonia or combination of the two Interpreted and Authenticated by: Javier Rojas 05/03/21
[2021-05-03] MEDS: ATORVASTATIN 40 MG TABLET PO SCH (20:45)
[2021-05-03] MEDS: MELATONIN 3 MG TABLET PO SCH (20:46)
[2021-05-04] MEDS: PIPERACILLIN SODIUM/TAZOBACTAM 3.375 GM in DEXTROSE 5% IN WATER 50 ML IV SCH ×2 (01:18→06:00)
[2021-05-04] MEDS: 0.9 % SODIUM CHLORIDE 10 ML SYRINGE IV SCH ×3 (06:22→22:13)
--- NOTE | 2021-05-04 07:32 | Internal Med Progress Note ---
SUBJECTIVE Subjective Patient information: Note initiated : 05/04/21 at 7:28 am Service Date, if different from initiated Date: [] Patient: Vincent Caba a 85 y/o M admitted on 05/01/21 for Altered LOC. Chief Complaint: [] Interval history: History of present illness: Mr. Caba is a 85 year old M Presents the ED after found to have decreased responsiveness at the nursing facility. Patient is accompanied by a power of academic affairs coordinator who is a close friend as patient does not have family around. Sounds like he was in his normal state of health until yesterday, the power of academic affairs coordinator says the physician at the nursing facility want to get him into see his urologist. Today he sounds like he ate less of his breakfast but with otherwise hearing normal when he became poorly responsive and brought to the ED. In the ED he was found to be hypercapnic with a CO2 of 123 and a pH of 7.1. Chest x-ray with pulmonary edema. Patient unresponsive. Patient was recently admitted to [facility] in March for a hypercapnic respiratory failure was put on BiPAP steroids and antibiotics at that time and he had urinary retention so House catheter was placed and has been following with Dr. Stewart outpatient. He has a pacemaker for history of complete heart block. Covid test in the ED was negative. 05/02 Patient opening his eyes and responding now. House flushed several times through the night and is now draining clear yellow fluid instead of hematuria. 05/03 More alert and awake. Creatinine bumped again today. Will hold diuretics for now. Take off BiPAP and after an hour or so check of VBG. Awaiting urine culture. Has occasional cough but denies shortness of breath or other complaints. 05/04 Azevedo on nasal cannula half of that yesterday on BiPAP last night now on nasal cannula again. Patient with occasional cough denying shortness of breath at rest. Edema cleared up on chest x-ray but he feels as infiltrates and appears low but worse on the right, suspect aspiration has been part of the problem. Review of Systems: denies headache/fever/chills/nausea/vomiting/chest or abdominal pain/diarrhea. Otherwise see above. Constitutional Vitals: Vital Signs Temp Pulse Resp BP Pulse Ox 97.4 F 75 18 122/86 98 05/04/21 00:01 05/03/21 20:04 05/04/21 06:01 05/04/21 06:01 05/04/21 06:01 Period Temp Pulse Resp BP Sys/Kulkarni Pulse Ox Last 24 Hr 97.3 F-98.2 F 75-91 15-44 97-128/48-86 93-100 Intake and Output 05/03/21 05/04/21 05/04/21 21:59 05:59 13:59 Intake Total 290 50 50 Output Total 210 226 225 Balance 80 -176 -175 Weight 112.582 kg Intake & Output: Intake & Output 05/03/21 05/04/21 05/04/21 21:59 05:59 13:59 Intake Total 290 50 50 Output Total 210 226 225 Balance 80 -176 -175 Weight 112.582 kg Intake: IV 50 50 50 Zosyn 3.375 gm In Dextrose 5% 50 50 50 in Water 50 ml @ 100 mls/hr IV Q6H [facility] Rx#:[id number] Oral 240 Output: Urine Catheter Amount 210 226 225 Other: Urine Appearance Cloudy Sediment Sediment Sediment Uretheral (House) Clear Sediment Hematuria Urine Color Dark Hillary Red Brown Red Brown Blood Tinged Uretheral (House) Dark Hillary Exam: General: alert and awake, no acute distress eyes/N/T: EOMI head/Neck: neck supple, CV: Regular with occasional irregularity, No murmurs, Pulm: left clear but shallow breathing, right rhonchi/rales, no wheezing Abd: soft, nontender, +BS x4 Ext: no clubbing/cyanosis, mild+ b/l LE edema improved Neuro: alert and Awake, follows commands, moves extremities skin: warm/dry OBJ DATA Labs CBC & Chem 7: 05/03/21 05:52 05/04/21 05:20 Labs: Abnormal Lab Results 05/03/21 05/03/21 05/03/21 05:53 05:52 05:52 WBC RBC 3.54 L Hgb 10.0 L Hct 33.1 L MCHC 30.2 L MPV 10.7 H Neut % (Auto) 89.5 H Lymph % (Auto) 3.8 L Lymph # (Auto) 0.41 L Seg Neutrophils % Lymphocytes % Absolute Neutrophils 9.68 H RBC Morphology Hypochromasia APTT Potassium Chloride 95 L Carbon Dioxide BUN 61 H Creatinine 2.7 H Glucose 118 H Calcium 8.3 L Phosphorus Ammonia Troponin T C-Reactive Protein NT-Pro-B Natriuret Pep Total Protein 5.3 L Albumin 2.7 L Procalcitonin 0.73 H Urine Appearance Urine Protein Urine Glucose (UA) Urine Occult Blood Ur Leukocyte Esterase Urine RBC Urine WBC Urine Bacteria Urine Mucus 05/03/21 05/02/21 05/02/21 05:52 05:41 05:41 WBC 14.6 H RBC 4.09 L Hgb 11.3 L Hct 38.9 L MCHC 29.0 L MPV 10.7 H Neut % (Auto) Lymph % (Auto) Lymph # (Auto) Seg Neutrophils % 89 H Lymphocytes % 3 L Absolute Neutrophils RBC Morphology Hypochromasia APTT Potassium Chloride Carbon Dioxide 33 H BUN 46 H Creatinine 2.1 H Glucose 114 H Calcium Phosphorus 4.8 H Ammonia Troponin T C-Reactive Protein 5.40 H NT-Pro-B Natriuret Pep 8258.0 H Total Protein 5.8 L Albumin 3.0 L Procalcitonin Urine Appearance Urine Protein Urine Glucose (UA) Urine Occult Blood Ur Leukocyte Esterase Urine RBC Urine WBC Urine Bacteria Urine Mucus 05/01/21 05/01/21 05/01/21 17:30 16:09 15:56 WBC RBC Hgb Hct MCHC MPV Neut % (Auto) Lymph % (Auto) Lymph # (Auto) Seg Neutrophils % 88 H Lymphocytes % 3 L Absolute Neutrophils RBC Morphology Abnormal A Hypochromasia 2+ A APTT Potassium Chloride Carbon Dioxide BUN Creatinine Glucose Calcium Phosphorus Ammonia Troponin T C-Reactive Protein 13.80 H NT-Pro-B Natriuret Pep Total Protein Albumin Procalcitonin Urine Appearance Turbid A Urine Protein 100 A Urine Glucose (UA) >=500 A Urine Occult Blood >=1.0 A Ur Leukocyte Esterase 75 A Urine RBC > 182 H Urine WBC > 182 H Urine Bacteria Many A Urine Mucus Mod A 05/01/21 05/01/21 05/01/21 15:34 11:45 11:45 WBC RBC Hgb Hct MCHC MPV Neut % (Auto) Lymph % (Auto) Lymph # (Auto) Seg Neutrophils % Lymphocytes % Absolute Neutrophils RBC Morphology Hypochromasia APTT 38.0 H Potassium 5.5 H Chloride Carbon Dioxide 31 H BUN 35 H Creatinine 1.6 H Glucose 279 H Calcium Phosphorus Ammonia Troponin T C-Reactive Protein NT-Pro-B Natriuret Pep Total Protein Albumin Procalcitonin 0.35 H Urine Appearance Urine Protein Urine Glucose (UA) Urine Occult Blood Ur Leukocyte Esterase Urine RBC Urine WBC Urine Bacteria Urine Mucus 05/01/21 05/01/21 05/01/21 11:45 10:52 10:52 WBC RBC Hgb Hct MCHC MPV Neut % (Auto) Lymph % (Auto) Lymph # (Auto) Seg Neutrophils % Lymphocytes % Absolute Neutrophils RBC Morphology Hypochromasia APTT Potassium Chloride Carbon Dioxide BUN Creatinine Glucose Calcium Phosphorus Ammonia < 10 L Troponin T 0.03 H C-Reactive Protein NT-Pro-B Natriuret Pep 4746.0 H Total Protein Albumin Procalcitonin Urine Appearance Urine Protein Urine Glucose (UA) Urine Occult Blood Ur Leukocyte Esterase Urine RBC Urine WBC Urine Bacteria Urine Mucus 05/01/21 10:52 WBC 17.1 H RBC 4.44 L Hgb 12.6 L Hct MCHC 28.5 L MPV Neut % (Auto) Lymph % (Auto) Lymph # (Auto) Seg Neutrophils % 95 H Lymphocytes % 1 L Absolute Neutrophils RBC Morphology Hypochromasia APTT Potassium Chloride Carbon Dioxide BUN Creatinine Glucose Calcium Phosphorus Ammonia Troponin T C-Reactive Protein NT-Pro-B Natriuret Pep Total Protein Albumin Procalcitonin Urine Appearance Urine Protein Urine Glucose (UA) Urine Occult Blood Ur Leukocyte Esterase Urine RBC Urine WBC Urine Bacteria Urine Mucus Meds: Medications Acetaminophen (Acetaminophen 325 Mg Tablet) 650 mg PO Q6HP PRN PRN Reason: PAIN/FEVER > 101 Albuterol/Ipratropium (Ipratropium/Albuterol 3 Ml Ampul.Neb) 3 ml NEB Q4HP PRN PRN Reason: Shortness Of Breath Last Admin: 05/03/21 07:17 Dose: 3 ml Documented by: Atorvastatin Calcium (Atorvastatin 40 Mg Tablet) 80 mg PO HS [facility] Last Admin: 05/03/21 20:45 Dose: 80 mg Documented by: Budesonide (Budesonide 0.5 Mg/2 Ml Ampul.Neb) 0.5 mg NEB Q12 [facility] Last Admin: 05/03/21 20:48 Dose: 0.5 mg Documented by: Clopidogrel Bisulfate (Clopidogrel 75 Mg Tablet) 75 mg PO DAILY [facility] Last Admin: 05/03/21 08:20 Dose: 75 mg Documented by: Dextrose (Dextrose 50% 50 Ml Vial) 0 ml IV UD PRN PRN Reason: Hypoglycemia Diagnostic Test (Pha) (Accu-Chek 1 Each Strip) 1 each FS [facility] Last Admin: 05/03/21 20:46 Dose: 1 each Documented by: Docusate Sodium (Docusate Sodium 100 Mg Capsule) 100 mg PO BID [facility] Last Admin: 05/03/21 20:45 Dose: 100 mg Documented by: Glucose (Dextrose 31 Gm Oral.Susp) 15 gm PO PRN PRN PRN Reason: Hypoglycemia Potassium Chloride 40 meq/ (Dextrose) 520 mls @ 130 mls/hr IV UD PRN PRN Reason: Potassium < 3 Magnesium Sulfate (Magnesium Sulfate) 2 gm in 50 mls @ 50 mls/hr IV UD PRN PRN Reason: Magnesium </= 1.6 Piperacillin Sod/Tazobactam (Sod 3.375 gm/ Dextrose) 50 mls @ 100 mls/hr IV Q6H [facility]; Protocol Last Infusion: 05/04/21 06:30 Dose: Infused Documented by: Insulin Glargine (Insulin Glargine, Human 1 Unit/0.01 Ml) 16 unit SQ [facility] Last Admin: 05/03/21 20:47 Dose: 16 units Documented by: Insulin Glargine (Insulin Glargine, Human 1 Unit/0.01 Ml) 17 unit SQ [facility] Last Admin: 05/03/21 08:21 Dose: 17 unit Documented by: Insulin Human Lispro (Insulin Lispro 1 Unit/0.01 Ml Unit) 0 unit SQ [facility]; Protocol Last Admin: 05/03/21 20:47 Dose: 10 unit Documented by: Melatonin (Melatonin 3 Mg Tablet) 3 mg PO [facility] Last Admin: 05/03/21 20:46 Dose: 3 mg Documented by: Metoclopramide HCl (Metoclopramide 10 Mg/2 Ml Vial) 10 mg IV Q6HP PRN PRN Reason: Nausea And Vomiting Metoprolol Tartrate (Metoprolol Tartrate 5 Mg/5 Ml Vial) 5 mg IV Q2HP PRN PRN Reason: Tachyarrhythmias HR>110 Last Admin: 05/02/21 17:48 Dose: 5 mg Documented by: Metoprolol Tartrate (Metoprolol Tartrate 25 Mg Tablet) 25 mg PO BID [facility] Last Admin: 05/03/21 20:46 Dose: 25 mg Documented by: Ondansetron HCl (Ondansetron 4 Mg/2 Ml Vial) 4 mg IV Q4HP PRN PRN Reason: Nausea And Vomiting Trifluoperazine 2 Mg (Tablet) 1 dose PO BID [facility] Last Admin: 05/03/21 20:48 Dose: Not Given Documented by: Polyethylene Glycol (Polyethylene Glycol 3350 17 Gm Packet) 17 gm PO DAILYP PRN PRN Reason: Constipation Potassium Chloride (Potassium Chloride 20 Meq Tablet) 40 meq PO UD PRN PRN Reason: Potssium is 3-3.5 Potassium Chloride (Potassium Chloride 20 Meq Tablet) 40 meq PO UD PRN PRN Reason: Potassium < 3 Fluticasone/Salmeterol (Fluticasone/Salmeterol 250/50 Inhaler #14) 1 puff INH BID [facility] Last Admin: 05/03/21 20:48 Dose: Not Given Documented by: Senna (Sennosides 1 Tablet) 2 tab PO DAILYP PRN PRN Reason: Constipation Sodium Chloride (0.9 % Sodium Chloride 10 Ml Syringe) 10 ml IV Q8 [facility] Last Admin: 05/04/21 06:22 Dose: 10 ml Documented by: Tamsulosin HCl (Tamsulosin 0.4 Mg Capsule) 0.4 mg PO QDAY [facility] Last Admin: 05/03/21 08:20 Dose: 0.4 mg Documented by: A/P Narrative A/P Narrative: A: *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 Much improved -CT brain no acute *COPD (on prn O2@facility): *gross Hematuria with h/o UR with BPH and House in place since mid March -house changed 04/30 @ outside facility for blockage, hematuria after catheter change but not immediately -house flushed several times, now draining clear-yellow urine and occasional sediment *UTI, complicated: Leukocytosis resolved *GINO on CKD IIIB: from diuresis likely vs *Anemia, chronic: *DM: *HTN/HLD: BB/ACEI/Lasix/aldactone @home *h/o schizophrenia: on Trifluoperazine *Obese: *?LISA: *Generalized weakness/deconditioning/poor functional status: Has been wheelchair-bound since August 2019 -long-term prognosis guarded P: -prn bipap, wean as able. was off most of day yesterday -encourage IS/acapella -hold lasix -abx pending UC/SC. house debris sent for path -basal and SSI -pulmicort nebs until able to use own IH's -ST eval -cont plavix -restart BB, ACEI held for low BP -f/u with urology, maintain house -f/u with cardiology for -f/u with pulmonolgy for LISA eval / sleep study -PT/OT -ppx: SCD (hold chemical given gross hematuria, on plavix) DNR per POA Time Spent With Patient Time: Total time spent is greater than 50% in coordination of care (as documented) at patient's floor/unit and/or counseling patient:
[2021-05-04] MEDS: FLUTICASONE/SALMETEROL 250/50 INHALER #14 INH SCH ×2 (07:52→21:56)
[2021-05-04] MEDS: TRIFLUOPERAZINE 2 MG PO SCH ×2 (07:52→22:11)
[2021-05-04 07:58] LABS: ALT/SGPT 13 U/L (<40); AST/SGOT 11 U/L (<40); Albumin 2.8 gm/dL (3.2-5.2); Albumin/Globulin Ratio 1.1 (1.0-2.3); Alkaline Phosphatase 82 U/L (39-117); Bilirubin,Direct < 0.2 mg/dL (0-0.3); Bilirubin,Total 0.5 mg/dL (0.1-1.0); Blood Urea Nitrogen 73 mg/dL (8-23); Calcium 8.2 mg/dL (8.6-10.4); Carbon Dioxide 30 mmol/L (22-30); Chloride 92 mmol/L (96-108); Globulin 2.6 gm/dL (2.2-3.7); Glomerular Filtration Rate 20; Glucose 113 mg/dL (70-105); Lactate Dehydrogenase 212 U/L (135-225); Phosphorous 3.8 mg/dL (2.5-4.5); Triglycerides 50 mg/dL (<150); Uric Acid 6.9 mg/dL (2.5-8.0)
[2021-05-04] MEDS: POLYETHYLENE GLYCOL 3350 17 GM PACKET PO PRN (08:04)
[2021-05-04] MEDS: CLOPIDOGREL 75 MG TABLET PO SCH (08:05)
[2021-05-04] MEDS: SENNOSIDES 1 TABLET PO PRN (08:05)
[2021-05-04] MEDS: INSULIN GLARGINE, HUMAN 1 UNIT/0.01 ML SQ SCH ×2 (08:05→21:56)
[2021-05-04] MEDS: DOCUSATE SODIUM 100 MG CAPSULE PO SCH ×2 (08:05→21:56)
[2021-05-04] MEDS: TAMSULOSIN 0.4 MG CAPSULE PO SCH (08:05)
[2021-05-04] MEDS: METOPROLOL TARTRATE 25 MG TABLET PO SCH ×2 (08:05→21:56)
[2021-05-04] MEDS: INSULIN LISPRO 1 UNIT/0.01 ML UNIT SQ SCH ×4 (08:05→22:10)
--- NOTE | 2021-05-04 08:06 | XRay Report ---
CLINICAL INFORMATION: chf COMPARISON: 05/03/2021 FINDINGS: Moderate cardiomegaly is unchanged. Pacemaker leads in stable satisfactory position. Mild mediastinal widening unchanged. The visualized pulmonary vessels appear normal on today's study. Moderate patchy infiltrates in the right perihilar region and moderate consolidation in the left base have worsened from yesterday. Small right and moderate left pleural effusion also worsening. IMPRESSION: Worsening bilateral alveolar airspace disease likely represents superimposed aspiration or infection. Today's exam does not show pulmonary vascular congestion to suggest CHF Interpreted and Authenticated by: Vishnu Gonzalez 05/04/21
[2021-05-04] MEDS: IPRATROPIUM/ALBUTEROL 3 ML AMPUL.NEB NEB PRN ×2 (09:12→21:10)
[2021-05-04] MEDS: BUDESONIDE 0.5 MG/2 ML AMPUL.NEB NEB SCH ×2 (09:12→21:10)
[2021-05-04] MEDS: PIPERACILLIN SODIUM/TAZOBACTAM 2.25 GM in DEXTROSE 5% IN WATER 50 ML IV SCH ×2 (11:43→17:31)
[2021-05-04] MEDS: MELATONIN 3 MG TABLET PO SCH (21:56)
[2021-05-04] MEDS: ATORVASTATIN 40 MG TABLET PO SCH (22:10)
[2021-05-05] MEDS: PIPERACILLIN SODIUM/TAZOBACTAM 2.25 GM in DEXTROSE 5% IN WATER 50 ML IV SCH ×2 (00:06→05:09)
[2021-05-05] MEDS: 0.9 % SODIUM CHLORIDE 10 ML SYRINGE IV SCH ×3 (05:55→21:48)
--- NOTE | 2021-05-05 07:57 | Internal Med Progress Note ---
SUBJECTIVE Subjective Patient information: Note initiated : 05/05/21 at 7:50 am Service Date, if different from initiated Date: [] Patient: Vincent Caba a 85 y/o M admitted on 05/01/21 for Altered LOC. Chief Complaint: [] Interval history: History of present illness: Mr. Caba is a 85 year old M Presents the ED after found to have decreased responsiveness at the nursing facility. Patient is accompanied by a power of ip technology transactions attorney who is a close friend as patient does not have family around. Sounds like he was in his normal state of health until yesterday, the power of ip technology transactions attorney says the physician at the nursing facility want to get him into see his urologist. Today he sounds like he ate less of his breakfast but with otherwise hearing normal when he became poorly responsive and brought to the ED. In the ED he was found to be hypercapnic with a CO2 of 123 and a pH of 7.1. Chest x-ray with pulmonary edema. Patient unresponsive. Patient was recently admitted to [facility] in March for a hypercapnic respiratory failure was put on BiPAP steroids and antibiotics at that time and he had urinary retention so House catheter was placed and has been following with Dr. Stewart outpatient. He has a pacemaker for history of complete heart block. Covid test in the ED was negative. 05/02 Patient opening his eyes and responding now. House flushed several times through the night and is now draining clear yellow fluid instead of hematuria. 05/03 More alert and awake. Creatinine bumped again today. Will hold diuretics for now. Take off BiPAP and after an hour or so check of VBG. Awaiting urine culture. Has occasional cough but denies shortness of breath or other complaints. 05/04 Azevedo on nasal cannula half of that yesterday on BiPAP last night now on nasal cannula again. Patient with occasional cough denying shortness of breath at rest. Edema cleared up on chest x-ray but he feels as infiltrates and appears low but worse on the right, suspect aspiration has been part of the problem. Patient with chronic respiratory failure secondary to COPD. Patient requires ventilator at home. He has been in the hospital on vision BiPAP. His device is not providing enough support and needs rate support. Patient was hospitalized at [facility] for same thing not too long ago. Patient failing without adequate respiratory support at home. 05/05 Wore BiPAP last night. Now on 2 and half liters nasal cannula. Patient has occasional cough but denies shortness of breath. No overnight events. Sodium within normal limits. Creatinine stable but elevated. Procalcitonin improved. Review of Systems: denies headache/fever/chills/nausea/vomiting/chest or abdominal pain/diarrhea. Otherwise see above. Constitutional Vitals: Vital Signs Temp Pulse Resp BP Pulse Ox 97.1 F 70 14 111/71 98 05/04/21 16:08 05/05/21 07:15 05/05/21 07:15 05/05/21 07:15 05/05/21 07:15 Period Temp Pulse Resp BP Sys/Kulkarni Pulse Ox Last 24 Hr 97.1 F-98.2 F 70-86 14-38 110-154/67-94 94-100 Intake and Output 05/04/21 05/05/21 05/05/21 21:59 05:59 13:59 Intake Total 50 100 Output Total 125 35 Balance -75 100 -35 Intake & Output: Intake & Output 05/04/21 05/05/21 05/05/21 21:59 05:59 13:59 Intake Total 50 100 Output Total 125 35 Balance -75 100 -35 Intake: IV 50 100 Zosyn 2.25 gm In Dextrose 5% in 50 100 Water 50 ml @ 100 mls/hr IV Q6H [facility] Rx#:[id number] Output: Urine Catheter Amount 125 35 Other: Urine Appearance Sediment Clear Small Blood Clots Uretheral (House) Sediment Mucous Threads Hematuria Urine Color Red Brown Bright Yellow Blood Tinged Uretheral (House) Light Hillary Blood Tinged Exam: General: alert and awake, no acute distress eyes/N/T: EOMI head/Neck: neck supple, CV: Regular with occasional irregularity, No murmurs, Pulm: left clear but shallow breathing, right rhonchi/rales, no wheezing Abd: soft, nontender, +BS x4 Ext: no clubbing/cyanosis, mild+ b/l LE edema improved Neuro: alert and Awake, follows commands, moves extremities skin: warm/dry OBJ DATA Labs CBC & Chem 7: 05/03/21 05:52 05/05/21 05:44 Labs: Abnormal Lab Results 05/04/21 05/03/2105/03/21 05:20 05:53 05:52 RBC 3.54 L Hgb 10.0 L Hct 33.1 L MCHC 30.2 L MPV 10.7 H Neut % (Auto) 89.5 H Lymph % (Auto) 3.8 L Lymph # (Auto) 0.41 L Seg Neutrophils % Lymphocytes % Absolute Neutrophils 9.68 H Sodium 130 L Chloride 92 L 95 L Carbon Dioxide BUN 73 H 61 H Creatinine 2.8 H 2.7 H Glucose 113 H 118 H Calcium 8.2 L 8.3 L Phosphorus C-Reactive Protein Total Protein 5.4 L 5.3 L Albumin 2.8 L 2.7 L Procalcitonin 05/03/21 05/03/21 05/02/21 05:52 05:52 05:41 RBC Hgb Hct MCHC MPV Neut % (Auto) Lymph % (Auto) Lymph # (Auto) Seg Neutrophils % Lymphocytes % Absolute Neutrophils Sodium Chloride Carbon Dioxide 33 H BUN 46 H Creatinine 2.1 H Glucose 114 H Calcium Phosphorus 4.8 H C-Reactive Protein 5.40 H Total Protein 5.8 L Albumin 3.0 L Procalcitonin 0.73 H 05/02/21 05:41 RBC Hgb Hct MCHC MPV Neut % (Auto) Lymph % (Auto) Lymph # (Auto) Seg Neutrophils % 89 H Lymphocytes % 3 L Absolute Neutrophils Sodium Chloride Carbon Dioxide BUN Creatinine Glucose Calcium Phosphorus C-Reactive Protein Total Protein Albumin Procalcitonin Meds: Medications Acetaminophen (Acetaminophen 325 Mg Tablet) 650 mg PO Q6HP PRN PRN Reason: PAIN/FEVER > 101 Albuterol/Ipratropium (Ipratropium/Albuterol 3 Ml Ampul.Neb) 3 ml NEB Q4HP PRN PRN Reason: Shortness Of Breath Last Admin: 05/04/21 21:10 Dose: 3 ml Documented by: Atorvastatin Calcium (Atorvastatin 40 Mg Tablet) 80 mg PO HS [facility] Last Admin: 05/04/21 22:10 Dose: 80 mg Documented by: Budesonide (Budesonide 0.5 Mg/2 Ml Ampul.Neb) 0.5 mg NEB Q12 [facility]E Last Admin: 05/04/21 21:10 Dose: 0.5 mg Documented by: Clopidogrel Bisulfate (Clopidogrel 75 Mg Tablet) 75 mg PO DAILY [facility] Last Admin: 05/04/21 08:05 Dose: 75 mg Documented by: Dextrose (Dextrose 50% 50 Ml Vial) 0 ml IV UD PRN PRN Reason: Hypoglycemia Diagnostic Test (Pha) (Accu-Chek 1 Each Strip) 1 each FS [facility] Last Admin: 05/04/21 21:55 Dose: 1 each Documented by: Docusate Sodium (Docusate Sodium 100 Mg Capsule) 100 mg PO BID [facility] Last Admin: 05/04/21 21:56 Dose: 100 mg Documented by: Glucose (Dextrose 31 Gm Oral.Susp) 15 gm PO PRN PRN PRN Reason: Hypoglycemia Potassium Chloride 40 meq/ (Dextrose) 520 mls @ 130 mls/hr IV UD PRN PRN Reason: Potassium < 3 Magnesium Sulfate (Magnesium Sulfate) 2 gm in 50 mls @ 50 mls/hr IV UD PRN PRN Reason: Magnesium </= 1.6 Piperacillin Sod/Tazobactam (Sod 2.25 gm/ Dextrose) 50 mls @ 100 mls/hr IV Q6H [facility]; Protocol Last Infusion: 05/05/21 05:39 Dose: Infused Documented by: Insulin Glargine (Insulin Glargine, Human 1 Unit/0.01 Ml) 16 unit SQ [facility] Last Admin: 05/04/21 21:56 Dose: 16 units Documented by: Insulin Glargine (Insulin Glargine, Human 1 Unit/0.01 Ml) [address] [facility] Last Admin: 05/04/21 08:05 Dose: 17 unit Documented by: Insulin Human Lispro (Insulin Lispro 1 Unit/0.01 Ml Unit) 0 unit SQ [facility]; Protocol Last Admin: 05/04/21 22:10 Dose: 8 unit Documented by: Melatonin (Melatonin 3 Mg Tablet) 3 mg PO [facility] Last Admin: 05/04/21 21:56 Dose: 3 mg Documented by: Metoclopramide HCl (Metoclopramide 10 Mg/2 Ml Vial) 10 mg IV Q6HP PRN PRN Reason: Nausea And Vomiting Metoprolol Tartrate (Metoprolol Tartrate 5 Mg/5 Ml Vial) 5 mg IV Q2HP PRN PRN Reason: Tachyarrhythmias HR>110 Last Admin: 05/02/21 17:48 Dose: 5 mg Documented by: Metoprolol Tartrate (Metoprolol Tartrate 25 Mg Tablet) 25 mg PO BID [facility] Last Admin: 05/04/21 21:56 Dose: 25 mg Documented by: Ondansetron HCl (Ondansetron 4 Mg/2 Ml Vial) 4 mg IV Q4HP PRN PRN Reason: Nausea And Vomiting Trifluoperazine 2 Mg (Tablet) 1 dose PO BID [facility] Last Admin: 05/04/21 22:11 Dose: Not Given Documented by: Polyethylene Glycol (Polyethylene Glycol 3350 17 Gm Packet) 17 gm PO DAILYP PRN PRN Reason: Constipation Last Admin: 05/04/21 08:04 Dose: 17 gm Documented by: Potassium Chloride (Potassium Chloride 20 Meq Tablet) 40 meq PO UD PRN PRN Reason: Potssium is 3-3.5 Potassium Chloride (Potassium Chloride 20 Meq Tablet) 40 meq PO UD PRN PRN Reason: Potassium < 3 Fluticasone/Salmeterol (Fluticasone/Salmeterol 250/50 Inhaler #14) 1 puff INH BID [facility] Last Admin: 05/04/21 21:56 Dose: Not Given Documented by: Senna (Sennosides 1 Tablet) 2 tab PO DAILYP PRN PRN Reason: Constipation Last Admin: 05/04/21 08:05 Dose: 2 tab Documented by: Sodium Chloride (0.9 % Sodium Chloride 10 Ml Syringe) 10 ml IV Q8 [facility] Last Admin: 05/05/21 05:55 Dose: 10 ml Documented by: Tamsulosin HCl (Tamsulosin 0.4 Mg Capsule) 0.4 mg PO QDAY [facility] Last Admin: 05/04/21 08:05 Dose: 0.4 mg Documented by: A/P Narrative A/P Narrative: A: *Acute on chronic hypoxic/hypercapnic respiratory failure: likely 2/2 Aspiration PNA & CHF & -covid/rvp neg -on bipap at night and NC during day *Acute on chronic diastolic (grade II) CHF w/Pulm edema: improved, maybe over diuresed -on BB/ACEI/Lasix/aldactone @home -chest xray edema improved and revealed underlying infiltrates likely aspiration pna *moderate Aortic Stenosis: contributing to above *Aspiration PNA, on admit: -leukocytosis resolved *Oropharyngeal, mild: *Encephalopathy: 2/2 above. 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: from diuresis likely vs *COPD (on prn O2@facility): *Likely LISA: *Obese: *gross Hematuria with h/o UR with BPH and House in place since march -house changed 04/30 @ outside facility for blockage, hematuria after catheter change but not immediately -house flushed several times, now draining clear-yellow urine and occasional sediment *UTI (Enterococcus), complicated: Leukocytosis resolved *Anemia, chronic: *DM: *HTN/HLD: BB/ACEI/Lasix/aldactone @home *h/o schizophrenia: on Trifluoperazine *Generalized weakness/deconditioning/poor functional status: Has been wheelchair-bound since August 2019 -long-term prognosis guarded P: -prn bipap, wean as able. was off most of day again yesterday -encourage IS/acapella -hold lasix, f/u renal fxn -on zosyn, switch to ampicillin/flagyl -basal and SSI -pulmicort nebs until able to use own IH's -ST eval, on dysphagia diet -cont plavix -restarted BB, ACEI held for low BP and GINO -pt most likely requires bipap at night for LISA -f/u with urology, maintain house -f/u with cardiology for -f/u with pulmonolgy for LISA eval / sleep study -PT/OT -ppx: SCD, start chemical now given urine now clear and pt high risk for dvt DNR per POA Time Spent With Patient Time: Total time spent is greater than 50% in coordination of care (as documented) at patient's floor/unit and/or counseling patient:
[2021-05-05] MEDS: FLUTICASONE/SALMETEROL 250/50 INHALER #14 INH SCH ×2 (08:16→21:42)
[2021-05-05] MEDS: IPRATROPIUM/ALBUTEROL 3 ML AMPUL.NEB NEB PRN ×2 (08:18→19:38)
[2021-05-05] MEDS: BUDESONIDE 0.5 MG/2 ML AMPUL.NEB NEB SCH ×2 (08:18→19:38)
[2021-05-05] MEDS: INSULIN LISPRO 1 UNIT/0.01 ML UNIT SQ SCH ×4 (08:26→21:43)
[2021-05-05 08:30] LABS: Blood Urea Nitrogen 81 mg/dL (8-23); Calcium 8.1 mg/dL (8.6-10.4); Carbon Dioxide 30 mmol/L (22-30); Chloride 93 mmol/L (96-108); Glomerular Filtration Rate 20; Glucose 97 mg/dL (70-105)
[2021-05-05] MEDS: SENNOSIDES 1 TABLET PO PRN (08:31)
[2021-05-05] MEDS: METOPROLOL TARTRATE 25 MG TABLET PO SCH ×2 (08:31→21:46)
[2021-05-05] MEDS: POLYETHYLENE GLYCOL 3350 17 GM PACKET PO PRN (08:31)
[2021-05-05] MEDS: TAMSULOSIN 0.4 MG CAPSULE PO SCH (08:31)
[2021-05-05] MEDS: DOCUSATE SODIUM 100 MG CAPSULE PO SCH ×2 (08:31→21:44)
[2021-05-05] MEDS: CLOPIDOGREL 75 MG TABLET PO SCH (08:31)
[2021-05-05] MEDS: INSULIN GLARGINE, HUMAN 1 UNIT/0.01 ML SQ SCH (08:33)
[2021-05-05] MEDS ORDERED: HEPARIN 5,000 UNIT/ML VIAL SQ SCH (09:00)
[2021-05-05] MEDS ORDERED: metroNIDAZOLE 500 MG TABLET PO SCH (10:00)
[2021-05-05] MEDS ORDERED: AMPICILLIN SODIUM 1 GM in 0.9 % SODIUM CHLORIDE 50 ML IV ONE (10:00)
[2021-05-05] MEDS: TRIFLUOPERAZINE 2 MG PO SCH ×2 (10:49→21:47)
[2021-05-05] MEDS ORDERED: SENNOSIDES 1 TABLET PO PRN (10:55)
[2021-05-05] MEDS ORDERED: METOCLOPRAMIDE 10 MG/2 ML VIAL IV PRN (10:55)
[2021-05-05] MEDS ORDERED: DEXTROSE 31 GM ORAL.SUSP PO PRN (10:55)
[2021-05-05] MEDS ORDERED: POTASSIUM CHLORIDE 40 MEQ in DEXTROSE 5% IN WATER 500 ML IV PRN (10:55)
[2021-05-05] MEDS ORDERED: ONDANSETRON 4 MG/2 ML VIAL IV PRN (10:55)
[2021-05-05] MEDS ORDERED: MAGNESIUM SULFATE 2 GM/50 ML BAG IV PRN (10:55)
[2021-05-05] MEDS ORDERED: DEXTROSE 50% 50 ML VIAL IV PRN (10:55)
[2021-05-05] MEDS ORDERED: METOPROLOL TARTRATE 5 MG/5 ML VIAL IV PRN (10:55)
[2021-05-05] MEDS ORDERED: POLYETHYLENE GLYCOL 3350 17 GM PACKET PO PRN (10:55)
[2021-05-05] MEDS ORDERED: POTASSIUM CHLORIDE 20 MEQ TABLET PO PRN ×2 (10:55)
--- NOTE | 2021-05-05 17:16 | Non-GYN Cytology Report ---
Non [employer]ian [employer] Cytology NG Diagnosis URINE, CATHETERIZED: --- NO ATYPICAL OR MALIGNANT CELLS IDENTIFIED. (ACP:sln) NG Micro Description Examination of the voided urine ThinPrep reveals numerous mixed inflammatory cells with neutrophils, lymphocytes and histiocytes. Numerous degenerated erythrocytes are present in the background. A few superficial squamous cells and urothelial cells are present. No atypical or malignant cells are seen. (ACP:sln) NG Gross Description Received 30 mL yellow conklin fluid. Electronically Signed Kin Rojas MD, FCAP Electronically Signed 05/05/2021 17:15
[2021-05-05] MEDS ORDERED: INSULIN GLARGINE, HUMAN 1 UNIT/0.01 ML SQ SCH (21:00)
[2021-05-05] MEDS ORDERED: AMPICILLIN SODIUM 1 GM in 0.9 % SODIUM CHLORIDE 50 ML IV SCH (21:00)
[2021-05-05] MEDS: AMPICILLIN SODIUM 1 GM in 0.9 % SODIUM CHLORIDE 50 ML IV SCH (21:42)
[2021-05-05] MEDS: HEPARIN 5,000 UNIT/ML VIAL SQ SCH (21:43)
[2021-05-05] MEDS: metroNIDAZOLE 500 MG TABLET PO SCH (21:44)
[2021-05-05] MEDS: MELATONIN 3 MG TABLET PO SCH (21:46)
[2021-05-05] MEDS: ATORVASTATIN 40 MG TABLET PO SCH (21:46)
[2021-05-06 07:08] LABS: Basophils # (Auto) 0.03 K/mcL (0.00-0.30); Basophils % (Auto) 0.4 % (0.0-2.0); Eosinophils # (Auto) 0.15 K/mcL (0.00-0.70); Eosinophils % (Auto) 1.9 % (0.0-7.0); Hematocrit 30.5 % (40.1-51.0); Hemoglobin 9.6 g/dL (13.7-17.5); Lymphocytes # (Auto) 0.68 K/mcL (1.50-4.80); Lymphocytes % (Auto) 8.6 % (15.5-49.0); Mean Corpuscular HGB Conc 31.5 g/dL (31.0-36.0); Mean Platelet Volume 10.8 fL (7.4-10.4); Monocytes # (Auto) 0.58 K/mcL (0.10-0.90); Monocytes % (Auto) 7.4 % (1.0-12.0); Neutrophils % (Auto) 81.7 % (38.0-78.0); Platelet Count 208 K/mcL (140-440); RBC 3.39 M/mcL (4.63-6.08); Red Cell Distribution Width 12.8 % (11.5-14.5); WBC 7.9 K/mcL (4.5-11.0)
[2021-05-06] MEDS: metroNIDAZOLE 500 MG TABLET PO SCH ×3 (07:25→21:02)
[2021-05-06] MEDS: 0.9 % SODIUM CHLORIDE 10 ML SYRINGE IV SCH ×3 (07:26→20:53)
[2021-05-06] MEDS: INSULIN LISPRO 1 UNIT/0.01 ML UNIT SQ SCH ×4 (07:27→20:52)
[2021-05-06 08:01] LABS: ALT/SGPT 11 U/L (<40); AST/SGOT 9 U/L (<40); Albumin 2.7 gm/dL (3.2-5.2); Albumin/Globulin Ratio 1.1 (1.0-2.3); Alkaline Phosphatase 67 U/L (39-117); Bilirubin,Total 0.4 mg/dL (0.1-1.0); Blood Urea Nitrogen 81 mg/dL (8-23); Calcium 8.2 mg/dL (8.6-10.4); Carbon Dioxide 33 mmol/L (22-30); Chloride 95 mmol/L (96-108); Globulin 2.5 gm/dL (2.2-3.7); Glomerular Filtration Rate 20; Glucose 55 mg/dL (70-105)
[2021-05-06] MEDS: FLUTICASONE/SALMETEROL 250/50 INHALER #14 INH SCH ×2 (08:13→20:53)
[2021-05-06] MEDS ORDERED: INSULIN GLARGINE, HUMAN 1 UNIT/0.01 ML SQ SCH (09:00)
[2021-05-06] MEDS: AMPICILLIN SODIUM 1 GM in 0.9 % SODIUM CHLORIDE 50 ML IV SCH ×2 (09:00→20:51)
[2021-05-06] MEDS: DOCUSATE SODIUM 100 MG CAPSULE PO SCH ×2 (09:01→20:50)
[2021-05-06] MEDS: METOPROLOL TARTRATE 25 MG TABLET PO SCH ×2 (09:01→20:49)
[2021-05-06] MEDS: BUDESONIDE 0.5 MG/2 ML AMPUL.NEB NEB SCH ×2 (09:01→19:47)
[2021-05-06] MEDS: TAMSULOSIN 0.4 MG CAPSULE PO SCH (09:01)
[2021-05-06] MEDS: HEPARIN 5,000 UNIT/ML VIAL SQ SCH ×2 (09:01→20:52)
[2021-05-06] MEDS: TRIFLUOPERAZINE 2 MG PO SCH ×2 (09:01→20:49)
[2021-05-06] MEDS: CLOPIDOGREL 75 MG TABLET PO SCH (09:02)
--- NOTE | 2021-05-06 14:57 | Cat Scan Report ---
CLINICAL INFORMATION: Aspiration pneumonia, COPD, CHF COMPARISON: Chest x-ray 05/04/2021 TECHNIQUE: Axial imaging of the chest was obtained without contrast. FINDINGS: The heart is mildly enlarged. Pacemaker present. Moderate coronary calcifications. Small right pleural effusion and [id number] left pleural effusion. Bibasilar atelectasis versus pneumonia. Remainder of lungs well aerated. No visualized mass. Bronchial tree unremarkable. No bony lesions. Visualized portions of the upper abdomen are without acute abnormality. IMPRESSION: Small to moderate bilateral pleural effusions with associated atelectasis or less likely pneumonia Interpreted and Authenticated by: Manjeet Meyers M.D. 05/06/21
--- NOTE | 2021-05-06 15:53 | Internal Med Progress Note ---
SUBJECTIVE Subjective Patient information: Note initiated : 05/06/21 at 3:45 pm Service Date, if different from initiated Date: [] Patient: Vincent Caba a 85 y/o M admitted on 05/01/21 for Altered LOC. Chief Complaint: [Aspiration pneumonia] History of present illness: Mr. Caba is a 85 year old M Presents the ED after found to have decreased responsiveness at the nursing facility. Patient is accompanied by a power of attorney recruiter who is a close friend as patient does not have family around. Sounds like he was in his normal state of health until yesterday, the power of attorney recruiter says the physician at the nursing facility want to get him into see his urologist. Today he sounds like he ate less of his breakfast but with otherwise hearing normal when he became poorly responsive and brought to the ED. In the ED he was found to be hypercapnic with a CO2 of 123 and a pH of 7.1. Chest x-ray with pulmonary edema. Patient unresponsive. Patient was recently admitted to [facility] in March for a hypercapnic respiratory failure was put on BiPAP steroids and antibiotics at that time and he had urinary retention so Saunders catheter was placed and has been following with Dr. Stewart outpatient. He has a pacemaker for history of complete heart block. Covid test in the ED was negative. 05/02 Patient opening his eyes and responding now. Saunders flushed several times through the night and is now draining clear yellow fluid instead of hematuria. 05/03 More alert and awake. Creatinine bumped again today. Will hold diuretics for now. Take off BiPAP and after an hour or so check of VBG. Awaiting urine culture. Has occasional cough but denies shortness of breath or other complaints. 05/04 Azevedo on nasal cannula half of that yesterday on BiPAP last night now on nasal cannula again. Patient with occasional cough denying shortness of breath at rest. Edema cleared up on chest x-ray but he feels as infiltrates and appears low but worse on the right, suspect aspiration has been part of the problem. Patient with chronic respiratory failure secondary to COPD. Patient requires ventilator at home. He has been in the hospital on vision BiPAP. His device is not providing enough support and needs rate support. Patient was hospitalized at [facility] for same thing not too long ago. Patient failing without adequate respiratory support at home. 05/05 Wore BiPAP last night. Now on 2 and half liters nasal cannula. Patient has occasional cough but denies shortness of breath. No overnight events. Sodium within normal limits. Creatinine stable but elevated. Procalcitonin improved. 05/06: Afebrile overnight. Hypoglycemia with BS 63 this morning. Been on BiPAP during the night, and been switching between BiPAP and nasal cannula during the day. Improving SOB. c/o nonproductive cough. Denies chest pain. Denies wheezing. Denies fever or chills. Constitutional Vitals: Vital Signs Temp Pulse Resp BP Pulse Ox 36.7 C 67 22 116/73 97 05/06/21 07:26 05/06/21 11:41 05/06/21 11:41 05/06/21 06:00 05/06/21 11:41 Period Temp Pulse Resp BP Sys/Kulkarni Pulse Ox Last 24 Hr 36.3 C-36.8 C 40-119 11-49 101-135/63-90 91-98 Intake and Output 05/06/21 05/06/21 05/06/21 05:59 13:59 21:59 Intake Total 50 570 Output Total 360 Balance -310 570 Weight 117.798 kg Patient Weight 05/07/21 05:59 Weight 117.798 kg Intake & Output: Intake & Output 05/06/21 05/06/21 05/06/21 05:59 13:59 21:59 Intake Total 50 570 Output Total 360 Balance -310 570 Weight 117.798 kg Intake: IV 50 50 Ampicillin 1 gm In Sodium 50 50 Chloride 0.9% 50 ml @ 100 mls/ hr IV Q12H [facility] Rx#:[id number] Oral 520 Output: Urine Catheter Amount 360 Other: Meal Breakfast Percent of Meal Consumed 75% Feeding Ability Total Assistance Urine Appearance Clear Urine Color Dark Yellow Stool Size Large Stool Color Brown Stool Consistency Soft # Bowel Movements 1 General appearance: cooperative and no acute distress Head Head exam: Present atraumatic and normocephalic Eye Eye exam: Present EOMI and PERRL ENT ENT exam: Present mucous membranes moist, normal exam and normal external ear exam Additional comments: Nasal cannula in place Neck Neck exam: Present normal inspection; Absent lymphadenopathy, tenderness and thyromegaly Respiratory Respiratory exam: Present rhonchi and wheezes; Absent accessory muscle use and respiratory distress Cardiovascular Cardiovascular exam: Present normal rate and rhythm; Absent JVD GI/Abdominal GI/Abdominal exam: Present normal bowel sounds and soft; Absent organomegaly and tenderness Rectal Rectal exam: Present deferred Extremities Exam Extremities exam: Present full ROM, normal capillary refill and normal inspect ion; Absent tenderness Neurological Exam Neurological exam: Present alert, CN II-XII intact and oriented X3; Absent motor sensory deficit Psychiatric Psychiatric exam: Present normal affect and normal mood; Absent anxious and depressed Skin Skin exam: Present dry and intact OBJ DATA Labs CBC & Chem 7: 05/06/21 05:51 05/06/21 05:51 Labs: Abnormal Lab Results 05/06/21 05/06/21 05/05/21 05:51 05:51 05:45 RBC 3.39 L Hgb 9.6 L Hct 30.5 L MPV 10.8 H Neut % (Auto) 81.7 H Lymph % (Auto) 8.6 L Lymph # (Auto) 0.68 L Sodium Chloride 95 L Carbon Dioxide 33 H Anion Gap 7.0 L BUN 81 H Creatinine 2.8 H Glucose 55 L Calcium 8.2 L Total Protein 5.2 L Albumin 2.7 L Procalcitonin 0.37 H 05/05/21 05/04/21 05:44 05:20 RBC Hgb Hct MPV Neut % (Auto) Lymph % (Auto) Lymph # (Auto) Sodium 130 L Chloride 93 L 92 L Carbon Dioxide Anion Gap BUN 81 H 73 H Creatinine 2.8 H 2.8 H Glucose 113 H Calcium 8.1 L 8.2 L Total Protein 5.4 L Albumin 2.8 L Procalcitonin Meds: Medications Acetaminophen (Acetaminophen 325 Mg Tablet) 650 mg PO Q6HP PRN PRN Reason: PAIN/FEVER > 101 Albuterol/Ipratropium (Ipratropium/Albuterol 3 Ml Ampul.Neb) 3 ml NEB Q4HP PRN PRN Reason: Shortness Of Breath Last Admin: 05/05/21 19:38 Dose: 3 ml Documented by: Atorvastatin Calcium (Atorvastatin 40 Mg Tablet) 80 mg PO HS [facility] Last Admin: 05/05/21 21:46 Dose: 80 mg Documented by: Budesonide (Budesonide 0.5 Mg/2 Ml Ampul.Neb) 0.5 mg NEB Q12 [facility] Last Admin: 05/06/21 09:01 Dose: 0.5 mg Documented by: Clopidogrel Bisulfate (Clopidogrel 75 Mg Tablet) 75 mg PO DAILY [facility] Last Admin: 05/06/21 09:02 Dose: 75 mg Documented by: Dextrose (Dextrose 50% 50 Ml Vial) 0 ml IV UD PRN PRN Reason: Hypoglycemia Diagnostic Test (Pha) (Accu-Chek 1 Each Strip) 1 each FS [facility] Last Admin: 05/06/21 12:00 Dose: 1 each Documented by: Docusate Sodium (Docusate Sodium 100 Mg Capsule) 100 mg PO BID [facility] Last Admin: 05/06/21 09:01 Dose: 100 mg Documented by: Furosemide (Furosemide 20 Mg Tablet) 20 mg PO BIDD [facility] Glucose (Dextrose 31 Gm Oral.Susp) 15 gm PO PRN PRN PRN Reason: Hypoglycemia Heparin Sodium (Porcine) (Heparin 5,000 Unit/Ml Vial) 5,000 unit SQ Q12 [facility] Last Admin: 05/06/21 09:01 Dose: 5,000 unit Documented by: Ampicillin Sodium 1 gm/ Sodium (Chloride) 50 mls @ 100 mls/hr IV Q12H [facility]; Protocol Last Infusion: 05/06/21 09:30 Dose: Infused Documented by: Magnesium Sulfate (Magnesium Sulfate) 2 gm in 50 mls @ 50 mls/hr IV UD PRN PRN Reason: Magnesium </= 1.6 Potassium Chloride 40 meq/ (Dextrose) 520 mls @ 130 mls/hr IV UD PRN PRN Reason: Potassium < 3 Insulin Glargine (Insulin Glargine, Human 1 Unit/0.01 Ml) 16 unit SQ HS [facility] Last Admin: 05/05/21 21:43 Dose: 16 units Documented by: Insulin Glargine (Insulin Glargine, Human 1 Unit/0.01 Ml) 17 unit SQ QAM [facility] Last Admin: 05/06/21 08:00 Dose: Not Given Documented by: Insulin Human Lispro (Insulin Lispro 1 Unit/0.01 Ml Unit) 0 unit SQ [facility]; Protocol Last Admin: 05/06/21 12:00 Dose: Not Given Documented by: Melatonin (Melatonin 3 Mg Tablet) 3 mg PO [facility] Last Admin: 05/05/21 21:46 Dose: 3 mg Documented by: Metoclopramide HCl (Metoclopramide 10 Mg/2 Ml Vial) 10 mg IV Q6HP PRN PRN Reason: Nausea And Vomiting Metoprolol Tartrate (Metoprolol Tartrate 25 Mg Tablet) 25 mg PO BID [facility] Last Admin: 05/06/21 09:01 Dose: 25 mg Documented by: Metoprolol Tartrate (Metoprolol Tartrate 5 Mg/5 Ml Vial) 5 mg IV Q2HP PRN PRN Reason: Tachyarrhythmias HR>110 Last Admin: 05/05/21 17:38 Dose: 5 mg Documented by: Metronidazole (Metronidazole 500 Mg Tablet) 500 mg PO Q8H [facility]; Protocol Last Admin: 05/06/21 15:03 Dose: 500 mg Documented by: Ondansetron HCl (Ondansetron 4 Mg/2 Ml Vial) 4 mg IV Q4HP PRN PRN Reason: Nausea And Vomiting Trifluoperazine 2 Mg (Tablet) 1 dose PO BID [facility] Last Admin: 05/06/21 09:01 Dose: 1 dose Documented by: Polyethylene Glycol (Polyethylene Glycol 3350 17 Gm Packet) 17 gm PO DAILYP PRN PRN Reason: Constipation Potassium Chloride (Potassium Chloride 20 Meq Tablet) 40 meq PO UD PRN PRN Reason: Potssium is 3-3.5 Potassium Chloride (Potassium Chloride 20 Meq Tablet) 40 meq PO UD PRN PRN Reason: Potassium < 3 Fluticasone/Salmeterol (Fluticasone/Salmeterol 250/50 Inhaler #14) 1 puff INH BID [facility] Last Admin: 05/06/21 08:13 Dose: Not Given Documented by: Senna (Sennosides 1 Tablet) 2 tab PO DAILYP PRN PRN Reason: Constipation Last Admin: 05/05/21 21:46 Dose: 2 tab Documented by: Sodium Chloride (0.9 % Sodium Chloride 10 Ml Syringe) 10 ml IV Q8 [facility] Last Admin: 05/06/21 15:03 Dose: 10 ml Documented by: Tamsulosin HCl (Tamsulosin 0.4 Mg Capsule) 0.4 mg PO QDAY [facility] Last Admin: 05/06/21 09:01 Dose: 0.4 mg Documented by: A/P Assessment and plan (1) Type 2 diabetes mellitus: Status: Chronic (2) Acute and chronic respiratory failure with hypercapnia: Status: Acute (3) COPD with acute exacerbation: Status: Chronic (4) Congestive heart failure: Status: Acute (5) Aspiration pneumonia: Status: Acute (6) Metabolic encephalopathy: Status: Chronic (7) Acute on chronic kidney failure: Status: Acute (8) Urinary tract infection: Status: Chronic (9) Bilateral pleural effusion: Status: Acute Narrative A/P Narrative: Assessment and Plans: 1. Aspiration pneumonia with bilateral mild to moderate pleural effusion: Sputum culture no growth Blood culture no growth BiPAP at night, during the day try to wean patient off from BiPAP to nasal cannula if tolerated Ampicillin IV Flagyl PO for anaerobe coverage cbc w/ auto diff in the morning to trend WBC Lasix 20mg PO BID for bilateral mild to moderate pleural effusion Sleep study outpatient 2. h/o COPD: BiPAP at night, during the day try to wean patient off from BiPAP to nasal cannula if tolerated DuoNEB NEB PRN wheezing Advair Diskus 3. T2DM with hypoglycemia episode: HgA1c Hold oral hypoglycemics while inpatient Insulin Lantus 10 unit BID (cut back from 16 and 17 unit AM and HS, respectively, to avoid hypoglycemia episode) Correctional scale insulin AC HS Accu Chek AC HS Hypoglycemia protocol Diabetic diet 4. Grade II Diastolic CHF: Lasix 20mg PO BID Metoprolol tartrate 25mg PO BID Fluid restriction 2L/day Intake and output measures Daily weigh 5. UTI: Urine culture grew Group D strep Coverage with antibiotics, see #1 6. Essential HTN: Currently normotensive Continue Lasix and Lopressor PO 7. GINO and CKD stage IV: Avoid nephrotoxic agents Saline lock with gentle diuretics Daily CMP to trend kidney functions GI ppx: not currently indicated DVT ppx: Heparin Code status: DNI DNR Prognosis: guarded Disposition: inpatient PCU; SNF resident Time Spent With Patient Time: Total time spent is greater than 50% in coordination of care (as documented) at patient's floor/unit and/or counseling patient: Total time spent with greater than 50% in coordination of care (as documented) at patient's floor/unit and/or counseling patient:: 25 - 35 minutes
[2021-05-06] MEDS: FUROSEMIDE 20 MG TABLET PO SCH (17:15)
[2021-05-06] MEDS: MELATONIN 3 MG TABLET PO SCH (20:50)
[2021-05-06] MEDS: ATORVASTATIN 40 MG TABLET PO SCH (20:50)
[2021-05-06] MEDS: INSULIN GLARGINE, HUMAN 1 UNIT/0.01 ML SQ SCH (20:53)
[2021-05-07] MEDS: metroNIDAZOLE 500 MG TABLET PO SCH ×3 (05:57→21:07)
[2021-05-07] MEDS: 0.9 % SODIUM CHLORIDE 10 ML SYRINGE IV SCH ×3 (05:57→21:06)
--- NOTE | 2021-05-07 08:39 | Internal Med Progress Note ---
SUBJECTIVE Subjective Patient information: Note initiated : 05/07/21 at 8:35 am Service Date, if different from initiated Date: [] Patient: Vincent Caba 85 y/o M admitted on 05/01/21 for Altered LOC. Chief Complaint: [] Constitutional Vitals: Vital Signs Temp Pulse Resp BP Pulse Ox 36.1 C 91 H 11 L 120/78 96 05/07/21 04:37 05/06/21 23:22 05/07/21 06:01 05/07/21 06:01 05/07/21 06:01 Period Temp Pulse Resp BP Sys/Kulkarni Pulse Ox Last 24 Hr 36.1 C-36.2 C 56-91 11-41 118-144/64-99 86-100 Intake and Output 05/06/21 05/07/21 05/07/21 21:59 05:59 13:59 Intake Total 480 170 Output Total 2049 1100 Balance -1570 -930 Weight 117.344 kg Intake & Output: Intake & Output 05/06/21 05/07/21 05/07/21 21:59 05:59 13:59 Intake Total 480 170 Output Total 2049 1100 Balance -1570 -930 Weight 117.344 kg Intake: IV 50 Ampicillin 1 gm In Sodium 50 Chloride 0.9% 50 ml @ 100 mls/ hr IV Q12H [facility] Rx#:[id number] Oral 480 120 Output: Urine Catheter Amount 2049 1100 Other: Meal Dinner Percent of Meal Consumed 100% Feeding Ability Total Assistance Urine Appearance Sediment Mucous Threads Urine Color Dark Yellow Bright Yellow Back Exam Back exam: Present normal inspection OBJ DATA Labs CBC & Chem 7: 05/07/21 05:20 05/06/21 05:51 Labs: Abnormal Lab Results 05/06/21 05/06/21 05/05/21 05:51 05:51 05:45 RBC 3.39 L Hgb 9.6 L Hct 30.5 L MPV 10.8 H Neut % (Auto) 81.7 H Lymph % (Auto) 8.6 L Lymph # (Auto) 0.68 L Chloride 95 L Carbon Dioxide 33 H Anion Gap 7.0 L BUN 81 H Creatinine 2.8 H Glucose 55 L Calcium 8.2 L Total Protein 5.2 L Albumin 2.7 L Procalcitonin 0.37 H 05/05/21 05:44 RBC Hgb Hct MPV Neut % (Auto) Lymph % (Auto) Lymph # (Auto) Chloride 93 L Carbon Dioxide Anion Gap BUN 81 H Creatinine 2.8 H Glucose Calcium 8.1 L Total Protein Albumin Procalcitonin Meds: Medications Acetaminophen (Acetaminophen 325 Mg Tablet) 650 mg PO Q6HP PRN PRN Reason: PAIN/FEVER > 101 Albuterol/Ipratropium (Ipratropium/Albuterol 3 Ml Ampul.Neb) 3 ml NEB Q4HP PRN PRN Reason: Shortness Of Breath Last Admin: 05/05/21 19:38 Dose: 3 ml Documented by: Atorvastatin Calcium (Atorvastatin 40 Mg Tablet) 80 mg PO HS [facility] Last Admin: 05/06/21 20:50 Dose: 80 mg Documented by: Budesonide (Budesonide 0.5 Mg/2 Ml Ampul.Neb) 0.5 mg NEB Q12 [facility] Last Admin: 05/06/21 19:47 Dose: 0.5 mg Documented by: Clopidogrel Bisulfate (Clopidogrel 75 Mg Tablet) 75 mg PO DAILY [facility] Last Admin: 05/06/21 09:02 Dose: 75 mg Documented by: Dextrose (Dextrose 50% 50 Ml Vial) 0 ml IV UD PRN PRN Reason: Hypoglycemia Diagnostic Test (Pha) (Accu-Chek 1 Each Strip) 1 each FS ACHS [facility] Last Admin: 05/06/21 20:52 Dose: 1 each Documented by: Docusate Sodium (Docusate Sodium 100 Mg Capsule) 100 mg PO BID [facility] Last Admin: 05/06/21 20:50 Dose: 100 mg Documented by: Furosemide (Furosemide 20 Mg Tablet) 20 mg PO BIDD [facility] Last Admin: 05/06/21 17:15 Dose: 20 mg Documented by: Glucose (Dextrose 31 Gm Oral.Susp) 15 gm PO PRN PRN PRN Reason: Hypoglycemia Heparin Sodium (Porcine) (Heparin 5,000 Unit/Ml Vial) 5,000 unit SQ Q12 [facility] Last Admin: 05/06/21 20:52 Dose: 5,000 unit Documented by: Ampicillin Sodium 1 gm/ Sodium (Chloride) 50 mls @ 100 mls/hr IV Q12H [facility]; Protocol Last Infusion: 05/06/21 22:07 Dose: Infused Documented by: Magnesium Sulfate (Magnesium Sulfate) 2 gm in 50 mls @ 50 mls/hr IV UD PRN PRN Reason: Magnesium </= 1.6 Potassium Chloride 40 meq/ (Dextrose) 520 mls @ 130 mls/hr IV UD PRN PRN Reason: Potassium < 3 Insulin Glargine (Insulin Glargine, Human 1 Unit/0.01 Ml) 10 unit SQ BID [facility] Last Admin: 05/06/21 20:53 Dose: 10 units Documented by: Insulin Human Lispro (Insulin Lispro 1 Unit/0.01 Ml Unit) 0 unit SQ ACHS [facility]; Protocol Last Admin: 05/06/21 20:52 Dose: 8 unit Documented by: Melatonin (Melatonin 3 Mg Tablet) 3 mg PO HS [facility] Last Admin: 05/06/21 20:50 Dose: 3 mg Documented by: Metoclopramide HCl (Metoclopramide 10 Mg/2 Ml Vial) 10 mg IV Q6HP PRN PRN Reason: Nausea And Vomiting Metoprolol Tartrate (Metoprolol Tartrate 25 Mg Tablet) 25 mg PO BID [facility] Last Admin: 05/06/21 20:49 Dose: 25 mg Documented by: Metoprolol Tartrate (Metoprolol Tartrate 5 Mg/5 Ml Vial) 5 mg IV Q2HP PRN PRN Reason: Tachyarrhythmias HR>110 Last Admin: 05/05/21 17:38 Dose: 5 mg Documented by: Metronidazole (Metronidazole 500 Mg Tablet) 500 mg PO Q8H [facility]; Protocol Last Admin: 05/07/21 05:57 Dose: 500 mg Documented by: Ondansetron HCl (Ondansetron 4 Mg/2 Ml Vial) 4 mg IV Q4HP PRN PRN Reason: Nausea And Vomiting Trifluoperazine 2 Mg (Tablet) 1 dose PO BID [facility] Last Admin: 05/06/21 20:49 Dose: 1 dose Documented by: Polyethylene Glycol (Polyethylene Glycol 3350 17 Gm Packet) 17 gm PO DAILYP PRN PRN Reason: Constipation Potassium Chloride (Potassium Chloride 20 Meq Tablet) 40 meq PO UD PRN PRN Reason: Potssium is 3-3.5 Potassium Chloride (Potassium Chloride 20 Meq Tablet) 40 meq PO UD PRN PRN Reason: Potassium < 3 Fluticasone/Salmeterol (Fluticasone/Salmeterol 250/50 Inhaler #14) 1 puff INH BID [facility] Last Admin: 05/06/21 20:53 Dose: Not Given Documented by: Senna (Sennosides 1 Tablet) 2 tab PO DAILYP PRN PRN Reason: Constipation Last Admin: 05/05/21 21:46 Dose: 2 tab Documented by: Sodium Chloride (0.9 % Sodium Chloride 10 Ml Syringe) 10 ml IV Q8 [facility] Last Admin: 05/07/21 05:57 Dose: 10 ml Documented by: Tamsulosin HCl (Tamsulosin 0.4 Mg Capsule) 0.4 mg PO QDAY [facility] Last Admin: 05/06/21 09:01 Dose: 0.4 mg Documented by: A/P Time Spent With Patient Time: Total time spent is greater than 50% in coordination of care (as document ed) at patient's floor/unit and/or counseling patient:
[2021-05-07 08:58] LABS: ALT/SGPT 12 U/L (<40); AST/SGOT 12 U/L (<40); Albumin 2.7 gm/dL (3.2-5.2); Albumin/Globulin Ratio 0.9 (1.0-2.3); Alkaline Phosphatase 74 U/L (39-117); Bilirubin,Total 0.4 mg/dL (0.1-1.0); Blood Urea Nitrogen 64 mg/dL (8-23); Calcium 8.6 mg/dL (8.6-10.4); Carbon Dioxide 31 mmol/L (22-30); Chloride 98 mmol/L (96-108); Globulin 2.9 gm/dL (2.2-3.7); Glomerular Filtration Rate 32; Glucose 95 mg/dL (70-105)
[2021-05-07] MEDS: INSULIN LISPRO 1 UNIT/0.01 ML UNIT SQ SCH ×4 (08:58→21:06)
[2021-05-07] MEDS: BUDESONIDE 0.5 MG/2 ML AMPUL.NEB NEB SCH ×2 (09:00→19:24)
[2021-05-07 09:01] LABS: Basophils # (Auto) 0.02 K/mcL (0.00-0.30); Basophils % (Auto) 0.2 % (0.0-2.0); Eosinophils # (Auto) 0.14 K/mcL (0.00-0.70); Eosinophils % (Auto) 1.6 % (0.0-7.0); Hematocrit 34.2 % (40.1-51.0); Hemoglobin 10.6 g/dL (13.7-17.5); Lymphocytes # (Auto) 0.67 K/mcL (1.50-4.80); Lymphocytes % (Auto) 7.8 % (15.5-49.0); Mean Cell Volume 89.8 fL (80.0-100.0); Mean Platelet Volume 10.9 fL (7.4-10.4); Monocytes # (Auto) 0.61 K/mcL (0.10-0.90); Monocytes % (Auto) 7.1 % (1.0-12.0); Neutrophils % (Auto) 83.3 % (38.0-78.0); Platelet Count 238 K/mcL (140-440); RBC 3.81 M/mcL (4.63-6.08); Red Cell Distribution Width 12.7 % (11.5-14.5); WBC 8.6 K/mcL (4.5-11.0)
[2021-05-07] MEDS: TRIFLUOPERAZINE 2 MG PO SCH ×2 (09:02→21:04)
[2021-05-07] MEDS: HEPARIN 5,000 UNIT/ML VIAL SQ SCH ×2 (09:02→21:04)
[2021-05-07] MEDS: FUROSEMIDE 20 MG TABLET PO SCH ×2 (09:03→16:49)
[2021-05-07] MEDS: METOPROLOL TARTRATE 25 MG TABLET PO SCH ×2 (09:03→21:05)
[2021-05-07] MEDS: TAMSULOSIN 0.4 MG CAPSULE PO SCH (09:03)
[2021-05-07] MEDS: DOCUSATE SODIUM 100 MG CAPSULE PO SCH ×2 (09:03→21:05)
[2021-05-07] MEDS: CLOPIDOGREL 75 MG TABLET PO SCH (09:03)
[2021-05-07] MEDS: FLUTICASONE/SALMETEROL 250/50 INHALER #14 INH SCH ×2 (09:04→20:44)
[2021-05-07] MEDS: AMPICILLIN SODIUM 1 GM in 0.9 % SODIUM CHLORIDE 50 ML IV SCH ×2 (09:05→21:05)
[2021-05-07] MEDS: INSULIN GLARGINE, HUMAN 1 UNIT/0.01 ML SQ SCH ×2 (11:14→21:06)
--- NOTE | 2021-05-07 15:16 | Internal Med Progress Note ---
SUBJECTIVE Subjective Patient information: Note initiated : 05/07/21 at 3:12 pm Service Date, if different from initiated Date: [] Patient: Vincent Caba a 85 y/o M admitted on 05/01/21 for Altered LOC. Chief Complaint: [Aspiration pneumonia] Interval history: History of present illness: Mr. Caba is a 85 year old M Presents the ED after found to have decreased responsiveness at the nursing facility. Patient is accompanied by a power of privacy attorney who is a close friend as patient does not have family around. Sounds like he was in his normal state of health until yesterday, the power of privacy attorney says the physician at the nursing facility want to get him into see his urologist. Today he sounds like he ate less of his breakfast but with otherwise hearing normal when he became poorly responsive and brought to the ED. In the ED he was found to be hypercapnic with a CO2 of 123 and a pH of 7.1. Chest x-ray with pulmonary edema. Patient unresponsive. Patient was recently admitted to [facility] in March for a hypercapnic respiratory failure was put on BiPAP steroids and antibiotics at that time and he had urinary retention so Saunders catheter was placed and has been following with Dr. Stewart outpatient. He has a pacemaker for history of complete heart block. Covid test in the ED was negative. 05/02 Patient opening his eyes and responding now. Saunders flushed several times through the night and is now draining clear yellow fluid instead of hematuria. 05/03 More alert and awake. Creatinine bumped again today. Will hold diuretics for now. Take off BiPAP and after an hour or so check of VBG. Awaiting urine culture. Has occasional cough but denies shortness of breath or other complaints. 05/04 Azevedo on nasal cannula half of that yesterday on BiPAP last night now on nasal cannula again. Patient with occasional cough denying shortness of breath at rest. Edema cleared up on chest x-ray but he feels as infiltrates and appears low but worse on the right, suspect aspiration has been part of the problem. Patient with chronic respiratory failure secondary to COPD. Patient requires ventilator at home. He has been in the hospital on vision BiPAP. His device is not providing enough support and needs rate support. Patient was hospitalized at [facility] for same thing not too long ago. Patient failing without adequate respiratory support at home. 05/05 Wore BiPAP last night. Now on 2 and half liters nasal cannula. Patient has occasional cough but denies shortness of breath. No overnight events. Sodium within normal limits. Creatinine stable but elevated. Procalcitonin improved. 05/06: Afebrile overnight. Hypoglycemia with BS 63 this morning. Been on BiPAP during the night, and been switching between BiPAP and nasal cannula during the day. Improving SOB. c/o nonproductive cough. Denies chest pain. Denies wheezing. Denies fever or chills. 05/07: Afebrile overnight. Been BiPAP dependent overnight and during the day. c/o SOB. c/o nonproductive cough. Denies chest pain. Denies wheezing. Denies fever or chills. Constitutional Vitals: Vital Signs Temp Pulse Resp BP Pulse Ox 36.7 C 91 H 32 H 142/69 97 05/07/21 12:02 05/07/21 12:54 05/07/21 14:02 05/07/21 14:02 05/07/21 14:02 Period Temp Pulse Resp BP Sys/Kulkarni Pulse Ox Last 24 Hr 36.1 C-36.7 C 56-91 11-41 118-144/64-99 86-100 Intake and Output 05/07/21 05/07/21 05/07/21 05:59 13:59 21:59 Intake Total 170 1010 Output Total 1100 1500 Balance -930 -490 Intake & Output: Intake & Output 05/07/21 05/07/21 05/07/21 05:59 13:59 21:59 Intake Total 170 1010 Output Total 1100 1500 Balance -930 -490 Intake: IV 50 50 Ampicillin 1 gm In Sodium 50 50 Chloride 0.9% 50 ml @ 100 mls/ hr IV Q12H [facility] Rx#:[id number] Oral 120 960 Output: Urine Catheter Amount 1100 1500 Other: Meal Lunch Percent of Meal Consumed 100% Feeding Ability Total Assistance Urine Appearance Mucous Threads Cloudy Sediment Urine Color Bright Yellow Bright Yellow General appearance: cooperative and no acute distress Head Head exam: Present atraumatic and normocephalic Eye Eye exam: Present EOMI and PERRL ENT ENT exam: Present mucous membranes moist, normal exam and normal external ear exam Additional comments: Nasal cannula in place Neck Neck exam: Present normal inspection; Absent lymphadenopathy, tenderness and thy romegaly Respiratory Respiratory exam: Present rhonchi and wheezes; Absent accessory muscle use and respiratory distress Cardiovascular Cardiovascular exam: Present normal rate and rhythm; Absent JVD GI/Abdominal GI/Abdominal exam: Present normal bowel sounds and soft; Absent organomegaly and tenderness Rectal Rectal exam: Present deferred Extremities Exam Extremities exam: Present full ROM, normal capillary refill and normal inspection; Absent tenderness Neurological Exam Neurological exam: Present alert, CN II-XII intact and oriented X3; Absent motor sensory deficit Psychiatric Psychiatric exam: Present normal affect and normal mood; Absent anxious and depressed Skin Skin exam: Present dry and intact OBJ DATA Labs CBC & Chem 7: 05/07/21 08:26 05/07/21 05:20 Labs: Abnormal Lab Results 05/07/21 05/07/21 05/06/21 08:26 05:20 05:51 RBC 3.81 L Hgb 10.6 L Hct 34.2 L MPV 10.9 H Neut % (Auto) 83.3 H Lymph % (Auto) 7.8 L Lymph # (Auto) 0.67 L Chloride 95 L Carbon Dioxide 31 H 33 H Anion Gap 7.0 L BUN 64 H 81 H Creatinine 1.9 H 2.8 H Glucose 55 L Calcium 8.2 L Total Protein 5.6 L 5.2 L Albumin 2.7 L 2.7 L Albumin/Globulin Ratio 0.9 L Procalcitonin 05/06/21 05/05/21 05/05/21 05:51 05:45 05:44 RBC 3.39 L Hgb 9.6 L Hct 30.5 L MPV 10.8 H Neut % (Auto) 81.7 H Lymph % (Auto) 8.6 L Lymph # (Auto) 0.68 L Chloride 93 L Carbon Dioxide Anion Gap BUN 81 H Creatinine 2.8 H Glucose Calcium 8.1 L Total Protein Albumin Albumin/Globulin Ratio Procalcitonin 0.37 H Meds: Medications Acetaminophen (Acetaminophen 325 Mg Tablet) 650 mg PO Q6HP PRN PRN Reason: PAIN/FEVER > 101 Albuterol/Ipratropium (Ipratropium/Albuterol 3 Ml Ampul.Neb) 3 ml NEB Q4HP PRN PRN Reason: Shortness Of Breath Last Admin: 05/05/21 19:38 Dose: 3 ml Documented by: Atorvastatin Calcium (Atorvastatin 40 Mg Tablet) 80 mg PO HS [facility] Last Admin: 05/06/21 20:50 Dose: 80 mg Documented by: Budesonide (Budesonide 0.5 Mg/2 Ml Ampul.Neb) 0.5 mg NEB Q12 [facility] Last Admin: 05/07/21 09:00 Dose: 0.5 mg Documented by: Clopidogrel Bisulfate (Clopidogrel 75 Mg Tablet) 75 mg PO DAILY [facility] Last Admin: 05/07/21 09:03 Dose: 75 mg Documented by: Dextrose (Dextrose 50% 50 Ml Vial) 0 ml IV UD PRN PRN Reason: Hypoglycemia Diagnostic Test (Pha) (Accu-Chek 1 Each Strip) 1 each FS ACHS [facility] Last Admin: 05/07/21 12:48 Dose: 1 each Documented by: Docusate Sodium (Docusate Sodium 100 Mg Capsule) 100 mg PO BID [facility] Last Admin: 05/07/21 09:03 Dose: 100 mg Documented by: Furosemide (Furosemide 20 Mg Tablet) 20 mg PO BIDD [facility] Last Admin: 05/07/21 09:03 Dose: 20 mg Documented by: Glucose (Dextrose 31 Gm Oral.Susp) 15 gm PO PRN PRN PRN Reason: Hypoglycemia Heparin Sodium (Porcine) (Heparin 5,000 Unit/Ml Vial) 5,000 unit SQ Q12 [facility] Last Admin: 05/07/21 09:02 Dose: 5,000 unit Documented by: Ampicillin Sodium 1 gm/ Sodium (Chloride) 50 mls @ 100 mls/hr IV Q12H [facility]; Protocol Last Infusion: 05/07/21 09:35 Dose: Infused Documented by: Magnesium Sulfate (Magnesium Sulfate) 2 gm in 50 mls @ 50 mls/hr IV UD PRN PRN Reason: Magnesium </= 1.6 Potassium Chloride 40 meq/ (Dextrose) 520 mls @ 130 mls/hr IV UD PRN PRN Reason: Potassium < 3 Insulin Glargine (Insulin Glargine, Human 1 Unit/0.01 Ml) 10 unit SQ BID [facility] Last Admin: 05/07/21 11:14 Dose: Not Given Documented by: Insulin Human Lispro (Insulin Lispro 1 Unit/0.01 Ml Unit) 0 unit SQ ACHS [facility]; Protocol Last Admin: 05/07/21 12:55 Dose: 4 unit Documented by: Melatonin (Melatonin 3 Mg Tablet) 3 mg PO HS [facility] Last Admin: 05/06/21 20:50 Dose: 3 mg Documented by: Metoclopramide HCl (Metoclopramide 10 Mg/2 Ml Vial) 10 mg IV Q6HP PRN PRN Reason: Nausea And Vomiting Metoprolol Tartrate (Metoprolol Tartrate 25 Mg Tablet) 25 mg PO BID [facility] Last Admin: 05/07/21 09:03 Dose: 25 mg Documented by: Metoprolol Tartrate (Metoprolol Tartrate 5 Mg/5 Ml Vial) 5 mg IV Q2HP PRN PRN Reason: Tachyarrhythmias HR>110 Last Admin: 05/05/21 17:38 Dose: 5 mg Documented by: Metronidazole (Metronidazole 500 Mg Tablet) 500 mg PO Q8H [facility]; Protocol Last Admin: 05/07/21 13:43 Dose: 500 mg Documented by: Ondansetron HCl (Ondansetron 4 Mg/2 Ml Vial) 4 mg IV Q4HP PRN PRN Reason: Nausea And Vomiting Trifluoperazine 2 Mg (Tablet) 1 dose PO BID [facility] Last Admin: 05/07/21 09:02 Dose: 1 dose Documented by: Polyethylene Glycol (Polyethylene Glycol 3350 17 Gm Packet) 17 gm PO DAILYP PRN PRN Reason: Constipation Potassium Chloride (Potassium Chloride 20 Meq Tablet) 40 meq PO UD PRN PRN Reason: Potssium is 3-3.5 Potassium Chloride (Potassium Chloride 20 Meq Tablet) 40 meq PO UD PRN PRN Reason: Potassium < 3 Fluticasone/Salmeterol (Fluticasone/Salmeterol 250/50 Inhaler #14) 1 puff INH BID [facility] Last Admin: 05/07/21 09:04 Dose: Not Given Documented by: Senna (Sennosides 1 Tablet) 2 tab PO DAILYP PRN PRN Reason: Constipation Last Admin: 05/05/21 21:46 Dose: 2 tab Documented by: Sodium Chloride (0.9 % Sodium Chloride 10 Ml Syringe) 10 ml IV Q8 [facility] Last Admin: 05/07/21 13:43 Dose: 10 ml Documented by: Tamsulosin HCl (Tamsulosin 0.4 Mg Capsule) 0.4 mg PO QDAY [facility] Last Admin: 05/07/21 09:03 Dose: 0.4 mg Documented by: A/P Assessment and plan (1) Type 2 diabetes mellitus: Status: Chronic (2) Acute and chronic respiratory failure with hypercapnia: Status: Acute (3) COPD with acute exacerbation: Status: Chronic (4) Congestive heart failure: Status: Acute (5) Aspiration pneumonia: Status: Acute (6) Metabolic encephalopathy: Status: Chronic (7) Acute on chronic kidney failure: Status: Acute (8) Urinary tract infection: Status: Chronic (9) Bilateral pleural effusion: Status: Acute Narrative A/P Narrative: Assessment and Plans: 1. Aspiration pneumonia with bilateral mild to moderate pleural effusion: Sputum culture no growth Blood culture no growth BiPAP at night, during the day try to wean patient off from BiPAP to nasal cannula if tolerated Ampicillin IV Flagyl PO for anaerobe coverage cbc w/ auto diff in the morning to trend WBC Lasix 20mg PO BID for bilateral mild to moderate pleural effusion Sleep study outpatient 2. h/o COPD: BiPAP at night, during the day try to wean patient off from BiPAP to nasal cannula if tolerated DuoNEB NEB PRN wheezing Advair Diskus 3. T2DM with hypoglycemia episode: HgA1c Hold oral hypoglycemics while inpatient Insulin Lantus 10 unit BID Correction[employer] scale insulin AC HS Accu Chek AC HS Hypoglycemia protocol Diabetic diet 4. Grade II Diastolic CHF: Lasix 20mg PO BID Metoprolol tartrate 25mg PO BID Fluid restriction 2L/day Intake and output measures Daily weigh 5. UTI: Urine culture grew Group D strep Coverage with antibiotics, see #1 6. Essential HTN: Currently normotensive Continue Lasix and Lopressor PO 7. GINO and CKD stage IV: Avoid nephrotoxic agents Saline lock with gentle diuretics Daily CMP to trend kidney functions GI ppx: not currently indicated DVT ppx: Heparin Code status: DNI DNR Prognosis: guarded Disposition: inpatient PCU; SNF resident Time Spent With Patient Time: Total time spent is greater than 50% in coordination of care (as d ocumented) at patient's floor/unit and/or counseling patient: Total time spent with greater than 50% in coordination of care (as documented) at patient's floor/unit and/or counseling patient:: 25 - 35 minutes
[2021-05-07] MEDS: ACETAMINOPHEN 325 MG TABLET PO PRN (17:35)
[2021-05-07] MEDS: MELATONIN 3 MG TABLET PO SCH (21:05)
[2021-05-07] MEDS: ATORVASTATIN 40 MG TABLET PO SCH (21:05)
[2021-05-08] MEDS: 0.9 % SODIUM CHLORIDE 10 ML SYRINGE IV SCH ×3 (05:51→20:40)
[2021-05-08] MEDS: metroNIDAZOLE 500 MG TABLET PO SCH ×3 (05:53→20:40)
[2021-05-08 07:49] LABS: Basophils # (Auto) 0.03 K/mcL (0.00-0.30); Basophils % (Auto) 0.4 % (0.0-2.0); Eosinophils # (Auto) 0.14 K/mcL (0.00-0.70); Eosinophils % (Auto) 1.9 % (0.0-7.0); Hematocrit 36.3 % (40.1-51.0); Hemoglobin 10.6 g/dL (13.7-17.5); Lymphocytes # (Auto) 0.68 K/mcL (1.50-4.80); Lymphocytes % (Auto) 9.1 % (15.5-49.0); Mean Cell Volume 97.3 fL (80.0-100.0); Mean Corpuscular HGB Conc 29.2 g/dL (31.0-36.0); Mean Platelet Volume 10.8 fL (7.4-10.4); Monocytes # (Auto) 0.59 K/mcL (0.10-0.90); Monocytes % (Auto) 7.9 % (1.0-12.0); Neutrophils % (Auto) 80.7 % (38.0-78.0); Platelet Count 218 K/mcL (140-440); RBC 3.73 M/mcL (4.63-6.08); Red Cell Distribution Width 13.1 % (11.5-14.5); WBC 7.5 K/mcL (4.5-11.0)
[2021-05-08] MEDS: INSULIN LISPRO 1 UNIT/0.01 ML UNIT SQ SCH ×4 (07:50→20:34)
[2021-05-08] MEDS: DOCUSATE SODIUM 100 MG CAPSULE PO SCH ×2 (08:08→20:34)
[2021-05-08] MEDS: METOPROLOL TARTRATE 25 MG TABLET PO SCH ×2 (08:08→20:33)
[2021-05-08] MEDS: CLOPIDOGREL 75 MG TABLET PO SCH (08:08)
[2021-05-08] MEDS: INSULIN GLARGINE, HUMAN 1 UNIT/0.01 ML SQ SCH ×2 (08:08→20:35)
[2021-05-08] MEDS: TAMSULOSIN 0.4 MG CAPSULE PO SCH (08:09)
[2021-05-08] MEDS: FLUTICASONE/SALMETEROL 250/50 INHALER #14 INH SCH ×2 (08:09→20:34)
[2021-05-08] MEDS: AMPICILLIN SODIUM 1 GM in 0.9 % SODIUM CHLORIDE 50 ML IV SCH ×2 (08:09→20:37)
[2021-05-08] MEDS: HEPARIN 5,000 UNIT/ML VIAL SQ SCH ×2 (08:09→20:33)
[2021-05-08] MEDS: FUROSEMIDE 20 MG TABLET PO SCH ×2 (08:09→16:51)
[2021-05-08] MEDS: BUDESONIDE 0.5 MG/2 ML AMPUL.NEB NEB SCH ×2 (08:22→21:29)
[2021-05-08] MEDS: IPRATROPIUM/ALBUTEROL 3 ML AMPUL.NEB NEB PRN ×2 (08:22→21:29)
[2021-05-08 08:44] LABS: ALT/SGPT 11 U/L (<40); AST/SGOT 13 U/L (<40); Albumin 2.6 gm/dL (3.2-5.2); Albumin/Globulin Ratio 0.9 (1.0-2.3); Alkaline Phosphatase 73 U/L (39-117); Bilirubin,Total 0.3 mg/dL (0.1-1.0); Blood Urea Nitrogen 51 mg/dL (8-23); Calcium 8.5 mg/dL (8.6-10.4); Carbon Dioxide 34 mmol/L (22-30); Chloride 100 mmol/L (96-108); Globulin 2.9 gm/dL (2.2-3.7); Glomerular Filtration Rate 42; Glucose 125 mg/dL (70-105)
--- NOTE | 2021-05-08 08:53 | Internal Med Progress Note ---
SUBJECTIVE Subjective Patient information: Note initiated : 05/08/21 at 8:50 am Service Date, if different from initiated Date: [] Patient: Vincent Caba a 85 y/o M admitted on 05/01/21 for Altered LOC. Chief Complaint: [] Interval history: History of present illness: Mr. Caba is a 85 year old M Presents the ED after found to have decreased responsiveness at the nursing facility. Patient is accompanied by a power of manager employment who is a close friend as patient does not have family around. Sounds like he was in his normal state of health until yesterday, the power of manager employment says the physician at the nursing facility want to get him into see his urologist. Today he sounds like he ate less of his breakfast but with otherwise hearing normal when he became poorly responsive and brought to the ED. In the ED he was found to be hypercapnic with a CO2 of 123 and a pH of 7.1. Chest x-ray with pulmonary edema. Patient unresponsive. Patient was recently admitted to [facility] in March for a hypercapnic respiratory failure was put on BiPAP steroids and antibiotics at that time and he had urinary retention so Saunders catheter was placed and has been following with Dr. Stewart outpatient. He has a pacemaker for history of complete heart block. Covid test in the ED was negative. 05/02 Patient opening his eyes and responding now. Saunders flushed several times through the night and is now draining clear yellow fluid instead of hematuria. 05/03 More alert and awake. Creatinine bumped again today. Will hold diuretics for now. Take off BiPAP and after an hour or so check of VBG. Awaiting urine culture. Has occasional cough but denies shortness of breath or other complaints. 05/04 Azevedo on nasal cannula half of that yesterday on BiPAP last night now on nasal cannula again. Patient with occasional cough denying shortness of breath at rest. Edema cleared up on chest x-ray but he feels as infiltrates and appears low but worse on the right, suspect aspiration has been part of the problem. Patient with chronic respiratory failure secondary to COPD. Patient requires ventilator at home. He has been in the hospital on vision BiPAP. His device is not providing enough support and needs rate support. Patient was hospitalized at [facility] for same thing not too long ago. Patient failing without adequate respiratory support at home. 05/05 Wore BiPAP last night. Now on 2 and half liters nasal cannula. Patient has occasional cough but denies shortness of breath. No overnight events. Sodium within normal limits. Creatinine stable but elevated. Procalcitonin improved. 05/06: Afebrile overnight. Hypoglycemia with BS 63 this morning. Been on BiPAP during the night, and been switching between BiPAP and nasal cannula during the day. Improving SOB. c/o nonproductive cough. Denies chest pain. Denies wheezing. Denies fever or chills. 05/07: Afebrile overnight. Been BiPAP dependent overnight and during the day. c/o SOB. c/o nonproductive cough. Denies chest pain. Denies wheezing. Denies fever or chills. 05/08: Afebrile overnight. Been on BiPAP overnight, and this morning he is tolerating room air. Denies SOB. Denies cough or sputum production. Denies wheezing. Denies fever or chills. Constitutional Vitals: Vital Signs Temp Pulse Resp BP Pulse Ox 37.7 C H 91 H 48 H 110/61 94 05/08/21 08:02 05/07/21 23:11 05/08/21 08:02 05/08/21 08:02 05/08/21 08:02 Period Temp Pulse Resp BP Sys/Kulkarni Pulse Ox Last 24 Hr 35.9 C-37.7 C 91-91 11-48 106-142/56-88 89-99 Intake and Output 05/07/21 05/08/21 05/08/21 21:59 05:59 13:59 Intake Total 290 Output Total 1250 950 Balance -1250 -660 Weight 115.349 kg Intake & Output: Intake & Output 05/07/21 05/08/21 05/08/21 21:59 05:59 13:59 Intake Total 290 Output Total 1250 950 Balance -1250 -660 Weight 115.349 kg Intake: IV 50 Ampicillin 1 gm In Sodium 50 Chloride 0.9% 50 ml @ 100 mls/ hr IV Q12H [facility] Rx#:[id number] Oral 240 Output: Urine Catheter Amount 1250 950 Other: Meal Dinner Breakfast Percent of Meal Consumed 100% 100% Feeding Ability Total Assistance Independent Urine Appearance Sediment Clear Uretheral (Saunders) Clear Mucous Threads Urine Color Bright Yellow Bright Yellow Uretheral (Saunders) Bright Yellow Urine Odor Strong Stool Size Moderate Stool Color Brown Stool Consistency Soft Formed General appearance: cooperative and mild distress; no no acute distress Head Head exam: Present atraumatic and normocephalic Eye Eye exam: Present EOMI and PERRL ENT ENT exam: Present mucous membranes moist, normal exam and normal external ear exam Neck Neck exam: Present normal inspection; Absent lymphadenopathy, tenderness and thyromegaly Respiratory Respiratory exam: Present rhonchi and wheezes; Absent accessory muscle use and respiratory distress Additional comments: tachypnea Cardiovascular Cardiovascular exam: Present normal rate and rhythm; Absent JVD GI/Abdominal GI/Abdominal exam: Present normal bowel sounds and soft; Absent organomegaly and tenderness Rectal Rectal exam: Present deferred Extremities Exam Extremities exam: Present full ROM, normal capillary refill and normal i nspection; Absent tenderness Neurological Exam Neurological exam: Present alert, CN II-XII intact and oriented X3; Absent motor sensory deficit Psychiatric Psychiatric exam: Present normal affect and normal mood; Absent anxious and depressed Skin Skin exam: Present dry and intact OBJ DATA Labs CBC & Chem 7: 05/08/21 05:55 05/08/21 05:55 Labs: Abnormal Lab Results 05/08/21 05/08/21 05/07/21 05:55 05:55 08:26 RBC 3.73 L 3.81 L Hgb 10.6 L 10.6 L Hct 36.3 L 34.2 L MCHC 29.2 L MPV 10.8 H 10.9 H Neut % (Auto) 80.7 H 83.3 H Lymph % (Auto) 9.1 L 7.8 L Lymph # (Auto) 0.68 L 0.67 L Chloride Carbon Dioxide 34 H Anion Gap 6.0 L BUN 51 H Creatinine 1.5 H Glucose 125 H Calcium 8.5 L Total Protein 5.5 L Albumin 2.6 L Albumin/Globulin Ratio 0.9 L 05/07/21 05/06/21 05/06/21 05:20 05:51 05:51 RBC 3.39 L Hgb 9.6 L Hct 30.5 L MCHC MPV 10.8 H Neut % (Auto) 81.7 H Lymph % (Auto) 8.6 L Lymph # (Auto) 0.68 L Chloride 95 L Carbon Dioxide 31 H 33 H Anion Gap 7.0 L BUN 64 H 81 H Creatinine 1.9 H 2.8 H Glucose 55 L Calcium 8.2 L Total Protein 5.6 L 5.2 L Albumin 2.7 L 2.7 L Albumin/Globulin Ratio 0.9 L Meds: Medications Acetaminophen (Acetaminophen 325 Mg Tablet) 650 mg PO Q6HP PRN PRN Reason: PAIN/FEVER > 101 Last Admin: 05/07/21 17:35 Dose: 650 mg Documented by: Albuterol/Ipratropium (Ipratropium/Albuterol 3 Ml Ampul.Neb) 3 ml NEB Q4HP PRN PRN Reason: Shortness Of Breath Last Admin: 05/08/21 08:22 Dose: 3 ml Documented by: Atorvastatin Calcium (Atorvastatin 40 Mg Tablet) 80 mg PO HS [facility] Last Admin: 05/07/21 21:05 Dose: 80 mg Documented by: Budesonide (Budesonide 0.5 Mg/2 Ml Ampul.Neb) 0.5 mg NEB Q12 [facility] Last Admin: 05/08/21 08:22 Dose: 0.5 mg Documented by: Clopidogrel Bisulfate (Clopidogrel 75 Mg Tablet) 75 mg PO DAILY [facility] Last Admin: 05/08/21 08:08 Dose: 75 mg Documented by: Dextrose (Dextrose 50% 50 Ml Vial) 0 ml IV UD PRN PRN Reason: Hypoglycemia Diagnostic Test (Pha) (Accu-Chek 1 Each Strip) 1 each FS ACHS [facility] Last Admin: 05/08/21 07:50 Dose: 1 each Documented by: Docusate Sodium (Docusate Sodium 100 Mg Capsule) 100 mg PO BID [facility] Last Admin: 05/08/21 08:08 Dose: 100 mg Documented by: Furosemide (Furosemide 20 Mg Tablet) 20 mg PO BIDD [facility] Last Admin: 05/08/21 08:09 Dose: 20 mg Documented by: Glucose (Dextrose 31 Gm Oral.Susp) 15 gm PO PRN PRN PRN Reason: Hypoglycemia Heparin Sodium (Porcine) (Heparin 5,000 Unit/Ml Vial) 5,000 unit SQ Q12 [facility] Last Admin: 05/08/21 08:09 Dose: 5,000 unit Documented by: Ampicillin Sodium 1 gm/ Sodium (Chloride) 50 mls @ 100 mls/hr IV Q12H [facility]; Protocol Last Admin: 05/08/21 08:09 Dose: 100 mls/hr Documented by: Magnesium Sulfate (Magnesium Sulfate) 2 gm in 50 mls @ 50 mls/hr IV UD PRN PRN Reason: Magnesium </= 1.6 Potassium Chloride 40 meq/ (Dextrose) 520 mls @ 130 mls/hr IV UD PRN PRN Reason: Potassium < 3 Insulin Glargine (Insulin Glargine, Human 1 Unit/0.01 Ml) 10 unit SQ BID [facility] Last Admin: 05/08/21 08:08 Dose: 10 units Documented by: Insulin Human Lispro (Insulin Lispro 1 Unit/0.01 Ml Unit) 0 unit SQ ACHS [facility]; Protocol Last Admin: 05/08/21 07:50 Dose: Not Given Documented by: Melatonin (Melatonin 3 Mg Tablet) 3 mg PO HS [facility] Last Admin: 05/07/21 21:05 Dose: 3 mg Documented by: Metoclopramide HCl (Metoclopramide 10 Mg/2 Ml Vial) 10 mg IV Q6HP PRN PRN Reason: Nausea And Vomiting Metoprolol Tartrate (Metoprolol Tartrate 25 Mg Tablet) 25 mg PO BID [facility] Last Admin: 05/08/21 08:08 Dose: 25 mg Documented by: Metoprolol Tartrate (Metoprolol Tartrate 5 Mg/5 Ml Vial) 5 mg IV Q2HP PRN PRN Reason: Tachyarrhythmias HR>110 Last Admin: 05/05/21 17:38 Dose: 5 mg Documented by: Metronidazole (Metronidazole 500 Mg Tablet) 500 mg PO Q8H [facility]; Protocol Last Admin: 05/08/21 05:53 Dose: 500 mg Documented by: Ondansetron HCl (Ondansetron 4 Mg/2 Ml Vial) 4 mg IV Q4HP PRN PRN Reason: Nausea And Vomiting Trifluoperazine 2 Mg (Tablet) 1 dose PO BID [facility] Last Admin: 05/07/21 21:04 Dose: 1 dose Documented by: Polyethylene Glycol (Polyethylene Glycol 3350 17 Gm Packet) 17 gm PO DAILYP PRN PRN Reason: Constipation Potassium Chloride (Potassium Chloride 20 Meq Tablet) 40 meq PO UD PRN PRN Reason: Potssium is 3-3.5 Potassium Chloride (Potassium Chloride 20 Meq Tablet) 40 meq PO UD PRN PRN Reason: Potassium < 3 Fluticasone/Salmeterol (Fluticasone/Salmeterol 250/50 Inhaler #14) 1 puff INH BID [facility] Last Admin: 05/08/21 08:09 Dose: Not Given Documented by: Senna (Sennosides 1 Tablet) 2 tab PO DAILYP PRN PRN Reason: Constipation Last Admin: 05/05/21 21:46 Dose: 2 tab Documented by: Sodium Chloride (0.9 % Sodium Chloride 10 Ml Syringe) 10 ml IV Q8 [facility] Last Admin: 05/08/21 05:51 Dose: 10 ml Documented by: Tamsulosin HCl (Tamsulosin 0.4 Mg Capsule) 0.4 mg PO QDAY [facility] Last Admin: 05/08/21 08:09 Dose: 0.4 mg Documented by: A/P Assessment and plan (1) Type 2 diabetes mellitus: Status: Chronic (2) Acute and chronic respiratory failure with hypercapnia: Status: Acute (3) COPD with acute exacerbation: Status: Chronic (4) Congestive heart failure: Status: Acute (5) Aspiration pneumonia: Status: Acute (6) Metabolic encephalopathy: Status: Chronic (7) Acute on chronic kidney failure: Status: Acute (8) Urinary tract infection: Status: Chronic (9) Bilateral pleural effusion: Status: Acute Narrative A/P Narrative: Assessment and Plans: 1. Aspiration pneumonia with bilateral mild to moderate pleural effusion: Sputum culture no growth Blood culture no growth BiPAP at night, during the day try to wean patient off from BiPAP to nasal cannu la if tolerated Ampicillin IV Flagyl PO for anaerobe coverage cbc w/ auto diff in the morning to trend WBC Lasix 20mg PO BID for bilateral mild to moderate pleural effusion Sleep study outpatient 2. h/o COPD: BiPAP at night, during the day try to wean patient off from BiPAP to nasal cannula if tolerated DuoNEB NEB PRN wheezing Advair Diskus 3. T2DM with hypoglycemia episode: HgA1c Hold oral hypoglycemics while inpatient Insulin Lantus 10 unit BID Correctional scale insulin AC HS Accu Chek AC HS Hypoglycemia protocol Diabetic diet 4. Grade II Diastolic CHF: Lasix 20mg PO BID Metoprolol tartrate 25mg PO BID Fluid restriction 2L/day Intake and output measures Daily weigh 5. UTI: Urine culture grew Group D strep Coverage with antibiotics, see #1 6. Essential HTN: Currently normotensive Continue Lasix and Lopressor PO 7. GINO and CKD stage IV: Avoid nephrotoxic agents Saline lock with gentle diuretics Daily CMP to trend kidney functions GI ppx: not currently indicated DVT ppx: Heparin Code status: DNI DNR Prognosis: guarded Disposition: inpatient PCU; SNF resident Time Spent With Patient Time: Total time spent is greater than 50% in coordination of care (as documented) at patient's floor/unit and/or counseling patient:
[2021-05-08] MEDS: ACETAMINOPHEN 325 MG TABLET PO PRN ×2 (09:47→16:51)
[2021-05-08] MEDS: TRIFLUOPERAZINE 2 MG PO SCH ×2 (13:26→20:35)
[2021-05-08] MEDS: MELATONIN 3 MG TABLET PO SCH (20:33)
[2021-05-08] MEDS: ATORVASTATIN 40 MG TABLET PO SCH (20:33)
[2021-05-09] MEDS: metroNIDAZOLE 500 MG TABLET PO SCH ×3 (05:12→22:19)
[2021-05-09] MEDS: 0.9 % SODIUM CHLORIDE 10 ML SYRINGE IV SCH ×3 (05:12→22:19)
[2021-05-09 07:14] LABS: Basophils # (Auto) 0.04 K/mcL (0.00-0.30); Basophils % (Auto) 0.5 % (0.0-2.0); Eosinophils # (Auto) 0.13 K/mcL (0.00-0.70); Eosinophils % (Auto) 1.5 % (0.0-7.0); Hematocrit 34.6 % (40.1-51.0); Hemoglobin 10.4 g/dL (13.7-17.5); Lymphocytes # (Auto) 0.63 K/mcL (1.50-4.80); Lymphocytes % (Auto) 7.3 % (15.5-49.0); Mean Corpuscular HGB Conc 30.1 g/dL (31.0-36.0); Monocytes % (Auto) 6.9 % (1.0-12.0); Neutrophils % (Auto) 83.8 % (38.0-78.0); Platelet Count 243 K/mcL (140-440); RBC 3.68 M/mcL (4.63-6.08); Red Cell Distribution Width 13.1 % (11.5-14.5); WBC 8.7 K/mcL (4.5-11.0)
[2021-05-09 07:52] LABS: ALT/SGPT 13 U/L (<40); AST/SGOT 12 U/L (<40); Albumin 2.9 gm/dL (3.2-5.2); Albumin/Globulin Ratio 1.2 (1.0-2.3); Alkaline Phosphatase 79 U/L (39-117); Bilirubin,Total 0.3 mg/dL (0.1-1.0); Blood Urea Nitrogen 38 mg/dL (8-23); Calcium 8.4 mg/dL (8.6-10.4); Carbon Dioxide 36 mmol/L (22-30); Chloride 98 mmol/L (96-108); Globulin 2.5 gm/dL (2.2-3.7); Glomerular Filtration Rate 50; Glucose 161 mg/dL (70-105)
[2021-05-09] MEDS: HEPARIN 5,000 UNIT/ML VIAL SQ SCH ×2 (08:33→20:22)
[2021-05-09] MEDS: CLOPIDOGREL 75 MG TABLET PO SCH (08:33)
[2021-05-09] MEDS: METOPROLOL TARTRATE 25 MG TABLET PO SCH ×2 (08:34→20:21)
[2021-05-09] MEDS: FUROSEMIDE 20 MG TABLET PO SCH ×2 (08:34→15:16)
[2021-05-09] MEDS: TRIFLUOPERAZINE 2 MG PO SCH ×2 (08:34→20:50)
[2021-05-09] MEDS: DOCUSATE SODIUM 100 MG CAPSULE PO SCH ×2 (08:34→20:21)
[2021-05-09] MEDS: FLUTICASONE/SALMETEROL 250/50 INHALER #14 INH SCH ×2 (08:35→20:24)
[2021-05-09] MEDS: INSULIN LISPRO 1 UNIT/0.01 ML UNIT SQ SCH ×4 (08:35→20:23)
[2021-05-09] MEDS: AMPICILLIN SODIUM 1 GM in 0.9 % SODIUM CHLORIDE 50 ML IV SCH ×2 (08:35→20:21)
[2021-05-09] MEDS: INSULIN GLARGINE, HUMAN 1 UNIT/0.01 ML SQ SCH ×2 (08:36→20:23)
[2021-05-09] MEDS: TAMSULOSIN 0.4 MG CAPSULE PO SCH (08:36)
[2021-05-09] MEDS: IPRATROPIUM/ALBUTEROL 3 ML AMPUL.NEB NEB PRN ×2 (09:32→20:17)
[2021-05-09] MEDS: BUDESONIDE 0.5 MG/2 ML AMPUL.NEB NEB SCH ×2 (09:32→20:17)
--- NOTE | 2021-05-09 09:43 | Internal Med Progress Note ---
SUBJECTIVE Subjective Patient information: Note initiated : 05/09/21 at 9:41 am Service Date, if different from initiated Date: [] Patient: Vincent Caba a 85 y/o M admitted on 05/01/21 for Altered LOC. Chief Complaint: [Aspiration pneumonia] Interval history: History of present illness: Mr. Caba is a 85 year old M Presents the ED after found to have decreased responsiveness at the nursing facility. Patient is accompanied by a power of criminal attorney who is a close friend as patient does not have family around. Sounds like he was in his normal state of health until yesterday, the power of criminal attorney says the physician at the nursing facility want to get him into see his urologist. Today he sounds like he ate less of his breakfast but with otherwise hearing normal when he became poorly responsive and brought to the ED. In the ED he was found to be hypercapnic with a CO2 of 123 and a pH of 7.1. Chest x-ray with pulmonary edema. Patient unresponsive. Patient was recently admitted to [facility] in March for a hypercapnic respiratory failure was put on BiPAP steroids and antibiotics at that time and he had urinary retention so Saunders catheter was placed and has been following with Dr. Stewart outpatient. He has a pacemaker for history of complete heart block. Covid test in the ED was negative. 05/02 Patient opening his eyes and responding now. Saunders flushed several times through the night and is now draining clear yellow fluid instead of hematuria. 05/03 More alert and awake. Creatinine bumped again today. Will hold diuretics for now. Take off BiPAP and after an hour or so check of VBG. Awaiting urine culture. Has occasional cough but denies shortness of breath or other complaints. 05/04 Azevedo on nasal cannula half of that yesterday on BiPAP last night now on nasal cannula again. Patient with occasional cough denying shortness of breath at rest. Edema cleared up on chest x-ray but he feels as infiltrates and appears low but worse on the right, suspect aspiration has been part of the problem. Patient with chronic respiratory failure secondary to COPD. Patient requires ventilator at home. He has been in the hospital on vision BiPAP. His device is not providing enough support and needs rate support. Patient was hospitalized at [facility] for same thing not too long ago. Patient failing without adequate respiratory support at home. 05/05 Wore BiPAP last night. Now on 2 and half liters nasal cannula. Patient has occasional cough but denies shortness of breath. No overnight events. Sodium within normal limits. Creatinine stable but elevated. Procalcitonin improved. 05/06: Afebrile overnight. Hypoglycemia with BS 63 this morning. Been on BiPAP during the night, and been switching between BiPAP and nasal cannula during the day. Improving SOB. c/o nonproductive cough. Denies chest pain. Denies wheezing. Denies fever or chills. 05/07: Afebrile overnight. Been BiPAP dependent overnight and during the day. c/o SOB. c/o nonproductive cough. Denies chest pain. Denies wheezing. Denies fever or chills. 05/08: Afebrile overnight. Been on BiPAP overnight, and this morning he is tolerating room air. Denies SOB. Denies cough or sputum production. Denies wheezing. Denies fever or chills. 05/09: Afebrile overnight. Been on BiPAP overnight, and this morning he is tolerating room air. Denies SOB. Denies cough or sputum production. Denies wheezing. Denies fever or chills. Constitutional Vitals: Vital Signs Temp Pulse Resp BP Pulse Ox 36.4 C 78 32 H 152/65 94 05/09/21 08:02 05/09/21 09:35 05/09/21 09:35 05/09/21 08:02 05/09/21 09:32 Period Temp Pulse Resp BP Sys/Kulkarni Pulse Ox Last 24 Hr 36.4 C-36.8 C 74-103 24-44 114-152/58-97 85-100 Intake and Output 05/08/21 05/09/21 05/09/21 21:59 05:59 13:59 Intake Total 120 290 290 Output Total 65 1999 Balance 55 1710 290 Weight 116.074 kg Intake & Output: Intake & Output 05/08/21 05/09/21 05/09/21 21:59 05:59 13:59 Intake Total 120 290 290 Output Total 65 1999 Balance 55 -1710 290 Weight 116.074 kg Intake: IV 50 50 Ampicillin 1 gm In Sodium 50 50 Chloride 0.9% 50 ml @ 100 mls/ hr IV Q12H [facility] Rx#:[id number] Oral 120 240 240 Output: Urine Catheter Amount 65 2000 Other: Meal Dinner Percent of Meal Consumed 100% Feeding Ability Independent Urine Appearance Clear Hematuria Hematuria Small Blood Clots Small Blood Clots Large Blood Clots Uretheral (Saunders) Hematuria Hematuria Small Blood Clots Small Blood Clots Large Blood Clots Large Blood Clots Urine Color Bright Yellow Red Brown Dark Red Uretheral (Saunders) Dark Red Straw Bright Red Blood Tinged Urine Odor Normal Foul General appearance: cooperative and no acute distress Head Head exam: Present atraumatic and normocephalic Eye Eye exam: Present EOMI and PERRL ENT ENT exam: Present mucous membranes moist, normal exam and normal external ear exam Additional comments: Oxymask in place Neck Neck exam: Present normal inspection; Absent lymphadenopathy, tenderness and thyromegaly Respiratory Respiratory exam: Present rhonchi and wheezes; Absent accessory muscle use and respiratory distress Cardiovascular Cardiovascular exam: Present normal rate and rhythm; Absent JVD GI/Abdominal GI/Abdominal exam: Present normal bowel sounds and soft; Absent organomegaly and tenderness Rectal Rectal exam: Present deferred Extremities Exam Extremities exam: Present full ROM, normal capillary refill and normal inspection; Absent tenderness Neurological Exam Neurological exam: Present alert, CN II-XII intact and oriented X3; Absent motor sensory deficit Psychiatric Psychiatric exam: Present normal affect and normal mood; Absent anxious and depressed Skin Skin exam: Present dry and intact OBJ DATA Labs CBC & Chem 7: 05/09/21 05:24 05/09/21 05:24 Labs: Abnormal Lab Results 05/09/21 05/09/21 05/08/21 05:24 05:24 05:55 RBC 3.68 L Hgb 10.4 L Hct 34.6 L MCHC 30.1 L MPV 11.0 H Neut % (Auto) 83.8 H Lymph % (Auto) 7.3 L Lymph # (Auto) 0.63 L Carbon Dioxide 36 H 34 H Anion Gap 6.0 L 6.0 L BUN 38 H 51 H Creatinine 1.3 H 1.5 H Glucose 161 H 125 H Calcium 8.4 L 8.5 L Total Protein 5.4 L 5.5 L Albumin 2.9 L 2.6 L Albumin/Globulin Ratio 0.9 L 05/08/21 05/07/21 05/07/21 05:55 08:26 05:20 RBC 3.73 L 3.81 L Hgb 10.6 L 10.6 L Hct 36.3 L 34.2 L MCHC 29.2 L MPV 10.8 H 10.9 H Neut % (Auto) 80.7 H 83.3 H Lymph % (Auto) 9.1 L 7.8 L Lymph # (Auto) 0.68 L 0.67 L Carbon Dioxide 31 H Anion Gap BUN 64 H Creatinine 1.9 H Glucose Calcium Total Protein 5.6 L Albumin 2.7 L Albumin/Globulin Ratio 0.9 L Meds: Medications Acetaminophen (Acetaminophen 325 Mg Tablet) 650 mg PO Q6HP PRN PRN Reason: PAIN/FEVER > 101 Last Admin: 05/08/21 16:51 Dose: 650 mg Documented by: Albuterol/Ipratropium (Ipratropium/Albuterol 3 Ml Ampul.Neb) 3 ml NEB Q4HP PRN PRN Reason: Shortness Of Breath Last Admin: 05/09/21 09:32 Dose: 3 ml Documented by: Atorvastatin Calcium (Atorvastatin 40 Mg Tablet) 80 mg PO HS [facility] Last Admin: 05/08/21 20:33 Dose: 80 mg Documented by: Budesonide (Budesonide 0.5 Mg/2 Ml Ampul.Neb) 0.5 mg NEB Q12 [facility] Last Admin: 05/09/21 09:32 Dose: 0.5 mg Documented by: Clopidogrel Bisulfate (Clopidogrel 75 Mg Tablet) 75 mg PO DAILY [facility] Last Admin: 05/09/21 08:33 Dose: 75 mg Documented by: Dextrose (Dextrose 50% 50 Ml Vial) 0 ml IV UD PRN PRN Reason: Hypoglycemia Diagnostic Test (Pha) (Accu-Chek 1 Each Strip) 1 each FS ACHS [facility] Last Admin: 05/09/21 07:32 Dose: 1 each Documented by: Docusate Sodium (Docusate Sodium 100 Mg Capsule) 100 mg PO BID [facility] Last Admin: 05/09/21 08:34 Dose: 100 mg Documented by: Furosemide (Furosemide 20 Mg Tablet) 20 mg PO BIDD [facility] Last Admin: 05/09/21 08:34 Dose: 20 mg Documented by: Glucose (Dextrose 31 Gm Oral.Susp) 15 gm PO PRN PRN PRN Reason: Hypoglycemia Heparin Sodium (Porcine) (Heparin 5,000 Unit/Ml Vial) 5,000 unit SQ Q12 [facility] Last Admin: 05/09/21 08:33 Dose: 5,000 unit Documented by: Ampicillin Sodium 1 gm/ Sodium (Chloride) 50 mls @ 100 mls/hr IV Q12H [facility]; Protocol Last Infusion: 05/09/21 09:15 Dose: Infused Documented by: Magnesium Sulfate (Magnesium Sulfate) 2 gm in 50 mls @ 50 mls/hr IV UD PRN PRN Reason: Magnesium </= 1.6 Potassium Chloride 40 meq/ (Dextrose) 520 mls @ 130 mls/hr IV UD PRN PRN Reason: Potassium < 3 Insulin Glargine (Insulin Glargine, Human 1 Unit/0.01 Ml) 10 unit SQ BID [facility] Last Admin: 05/09/21 08:36 Dose: 10 units Documented by: Insulin Human Lispro (Insulin Lispro 1 Unit/0.01 Ml Unit) 0 unit SQ ACHS [facility]; Protocol Last Admin: 05/09/21 08:35 Dose: 2 unit Documented by: Melatonin (Melatonin 3 Mg Tablet) 3 mg PO HS [facility] Last Admin: 05/08/21 20:33 Dose: 3 mg Documented by: Metoclopramide HCl (Metoclopramide 10 Mg/2 Ml Vial) 10 mg IV Q6HP PRN PRN Reason: Nausea And Vomiting Metoprolol Tartrate (Metoprolol Tartrate 25 Mg Tablet) 25 mg PO BID [facility] Last Admin: 05/09/21 08:34 Dose: 25 mg Documented by: Metoprolol Tartrate (Metoprolol Tartrate 5 Mg/5 Ml Vial) 5 mg IV Q2HP PRN PRN Reason: Tachyarrhythmias HR>110 Last Admin: 05/05/21 17:38 Dose: 5 mg Documented by: Metronidazole (Metronidazole 500 Mg Tablet) 500 mg PO Q8H [facility]; Protocol Last Admin: 05/09/21 05:12 Dose: 500 mg Documented by: Ondansetron HCl (Ondansetron 4 Mg/2 Ml Vial) 4 mg IV Q4HP PRN PRN Reason: Nausea And Vomiting Trifluoperazine 2 Mg (Tablet) 1 dose PO BID [facility] Last Admin: 05/09/21 08:34 Dose: 1 dose Documented by: Polyethylene Glycol (Polyethylene Glycol 3350 17 Gm Packet) 17 gm PO DAILYP PRN PRN Reason: Constipation Potassium Chloride (Potassium Chloride 20 Meq Tablet) 40 meq PO UD PRN PRN Reason: Potssium is 3-3.5 Potassium Chloride (Potassium Chloride 20 Meq Tablet) 40 meq PO UD PRN PRN Reason: Potassium < 3 Fluticasone/Salmeterol (Fluticasone/Salmeterol 250/50 Inhaler #14) 1 puff INH BID [facility] Last Admin: 05/09/21 08:35 Dose: Not Given Documented by: Senna (Sennosides 1 Tablet) 2 tab PO DAILYP PRN PRN Reason: Constipation Last Admin: 05/05/21 21:46 Dose: 2 tab Documented by: Sodium Chloride (0.9 % Sodium Chloride 10 Ml Syringe) 10 ml IV Q8 [facility] Last Admin: 05/09/21 05:12 Dose: 10 ml Documented by: Tamsulosin HCl (Tamsulosin 0.4 Mg Capsule) 0.4 mg PO QDAY [facility] Last Admin: 05/09/21 08:36 Dose: 0.4 mg Documented by: A/P Assessment and plan (1) Type 2 diabetes mellitus: Status: Chronic (2) Acute and chronic respiratory failure with hypercapnia: Status: Acute (3) COPD with acute exacerbation: Status: Chronic (4) Congestive heart failure: Status: Acute (5) Aspiration pneumonia: Status: Acute (6) Metabolic encephalopathy: Status: Chronic (7) Acute on chronic kidney failure: Status: Acute (8) Urinary tract infection: Status: Chronic (9) Bilateral pleural effusion: Status: Acute Narrative A/P Narrative: Assessment and Plans: 1. Aspiration pneumonia with bilateral mild to moderate pleural effusion: Sputum culture no growth Blood culture no growth BiPAP at night, during the day try to wean patient off from BiPAP to nasal cannula if tolerated Ampicillin IV Flagyl PO for anaerobe coverage cbc w/ auto diff in the morning to trend WBC Lasix 20mg PO BID for bilateral mild to moderate pleural effusion Sleep study outpatient 2. h/o COPD: BiPAP at night, during the day try to wean patient off from BiPAP to nasal cannula if tolerated DuoNEB NEB PRN wheezing Advair Diskus 3. T2DM with hypoglycemia episode: HgA1c Hold oral hypoglycemics while inpatient Insulin Lantus 10 unit BID Correctional scale insulin AC HS Accu Chek AC HS Hypoglycemia protocol Diabetic diet 4. Grade II Diastolic CHF: Lasix 20mg PO BID Metoprolol tartrate 25mg PO BID Fluid restriction 2L/day Intake and output measures Daily weigh 5. UTI: Urine culture grew Group D strep Coverage with antibiotics, see #1 6. Essential HTN: Currently normotensive Continue Lasix and Lopressor PO 7. GINO and CKD stage IV: Avoid nephrotoxic agents Saline lock with gentle diuretics Daily CMP to trend kidney functions GI ppx: not currently indicated DVT ppx: Heparin Code status: DNI DNR Prognosis: extremely guarded Disposition: transfer to inpatient med surg telemetry; SNF resident Time Spent With Patient Time: Total time spent is greater than 50% in coordination of care (as documented) at patient's floor/unit and/or counseling patient:
[2021-05-09] MEDS ORDERED: DEXTROSE 50% 50 ML VIAL IV PRN (09:51)
[2021-05-09] MEDS ORDERED: METOCLOPRAMIDE 10 MG/2 ML VIAL IV PRN (09:51)
[2021-05-09] MEDS ORDERED: POTASSIUM CHLORIDE 20 MEQ TABLET PO PRN ×2 (09:51)
[2021-05-09] MEDS ORDERED: ONDANSETRON 4 MG/2 ML VIAL IV PRN (09:51)
[2021-05-09] MEDS ORDERED: SENNOSIDES 1 TABLET PO PRN (09:51)
[2021-05-09] MEDS ORDERED: POLYETHYLENE GLYCOL 3350 17 GM PACKET PO PRN (09:51)
[2021-05-09] MEDS ORDERED: POTASSIUM CHLORIDE 40 MEQ in DEXTROSE 5% IN WATER 500 ML IV PRN (09:51)
[2021-05-09] MEDS ORDERED: ACETAMINOPHEN 325 MG TABLET PO PRN (09:51)
[2021-05-09] MEDS ORDERED: DEXTROSE 31 GM ORAL.SUSP PO PRN (09:51)
[2021-05-09] MEDS ORDERED: MAGNESIUM SULFATE 2 GM/50 ML BAG IV PRN (09:51)
[2021-05-09] MEDS ORDERED: METOPROLOL TARTRATE 5 MG/5 ML VIAL IV PRN (09:51)
[2021-05-09] MEDS: MELATONIN 3 MG TABLET PO SCH (20:21)
[2021-05-09] MEDS: ATORVASTATIN 40 MG TABLET PO SCH (20:22)
[2021-05-10] MEDS: metroNIDAZOLE 500 MG TABLET PO SCH ×3 (04:53→22:45)
[2021-05-10] MEDS: 0.9 % SODIUM CHLORIDE 10 ML SYRINGE IV SCH ×3 (04:53→20:38)
[2021-05-10] MEDS: INSULIN LISPRO 1 UNIT/0.01 ML UNIT SQ SCH ×4 (06:58→20:35)
[2021-05-10 07:02] LABS: Basophils # (Auto) 0.05 K/mcL (0.00-0.30); Basophils % (Auto) 0.5 % (0.0-2.0); Eosinophils # (Auto) 0.15 K/mcL (0.00-0.70); Eosinophils % (Auto) 1.4 % (0.0-7.0); Hematocrit 34.8 % (40.1-51.0); Hemoglobin 10.2 g/dL (13.7-17.5); Lymphocytes % (Auto) 5.5 % (15.5-49.0); Mean Cell Volume 92.8 fL (80.0-100.0); Mean Corpuscular HGB Conc 29.3 g/dL (31.0-36.0); Mean Platelet Volume 11.1 fL (7.4-10.4); Monocytes # (Auto) 0.66 K/mcL (0.10-0.90); Neutrophils % (Auto) 86.6 % (38.0-78.0); Platelet Count 244 K/mcL (140-440); RBC 3.75 M/mcL (4.63-6.08); Red Cell Distribution Width 13.2 % (11.5-14.5)
[2021-05-10 07:37] LABS: ALT/SGPT 15 U/L (<40); AST/SGOT 16 U/L (<40); Albumin 2.7 gm/dL (3.2-5.2); Albumin/Globulin Ratio 1.1 (1.0-2.3); Alkaline Phosphatase 79 U/L (39-117); Bilirubin,Total 0.3 mg/dL (0.1-1.0); Blood Urea Nitrogen 31 mg/dL (8-23); Calcium 8.4 mg/dL (8.6-10.4); Carbon Dioxide 36 mmol/L (22-30); Chloride 98 mmol/L (96-108); Globulin 2.5 gm/dL (2.2-3.7); Glomerular Filtration Rate 61; Glucose 188 mg/dL (70-105)
[2021-05-10] MEDS: BUDESONIDE 0.5 MG/2 ML AMPUL.NEB NEB SCH ×2 (07:45→20:18)
[2021-05-10] MEDS: FLUTICASONE/SALMETEROL 250/50 INHALER #14 INH SCH ×2 (09:07→20:17)
[2021-05-10] MEDS: CLOPIDOGREL 75 MG TABLET PO SCH (09:13)
[2021-05-10] MEDS: FUROSEMIDE 20 MG TABLET PO SCH ×2 (09:13→17:07)
[2021-05-10] MEDS: DOCUSATE SODIUM 100 MG CAPSULE PO SCH ×2 (09:13→20:35)
[2021-05-10] MEDS: HEPARIN 5,000 UNIT/ML VIAL SQ SCH ×2 (09:14→20:35)
[2021-05-10] MEDS: INSULIN GLARGINE, HUMAN 1 UNIT/0.01 ML SQ SCH ×2 (09:14→20:36)
[2021-05-10] MEDS: TAMSULOSIN 0.4 MG CAPSULE PO SCH (09:14)
[2021-05-10] MEDS: METOPROLOL TARTRATE 25 MG TABLET PO SCH ×2 (09:14→20:36)
[2021-05-10] MEDS: AMPICILLIN SODIUM 1 GM in 0.9 % SODIUM CHLORIDE 50 ML IV SCH ×2 (09:25→20:34)
[2021-05-10] MEDS: TRIFLUOPERAZINE 2 MG PO SCH ×2 (09:26→20:37)
--- NOTE | 2021-05-10 13:16 | Internal Med Progress Note ---
SUBJECTIVE Subjective Patient information: Note initiated : 05/10/21 at 1:14 pm Service Date, if different from initiated Date: [] Patient: Vincent Caba a 85 y/o M admitted on 05/01/21 for Altered LOC. Chief Complaint: [Aspiration pneumonia] Interval history: History of present illness: Mr. Caba is a 85 year old M Presents the ED after found to have decreased responsiveness at the nursing facility. Patient is accompanied by a power of ip technology transactions attorney who is a close friend as patient does not have family around. Sounds like he was in his normal state of health until yesterday, the power of ip technology transactions attorney says the physician at the nursing facility want to get him into see his urologist. Today he sounds like he ate less of his breakfast but with otherwise hearing normal when he became poorly responsive and brought to the ED. In the ED he was found to be hypercapnic with a CO2 of 123 and a pH of 7.1. Chest x-ray with pulmonary edema. Patient unresponsive. [facility] was [facility] for a hypercapnic respiratory failure was put on BiPAP steroids and antibiotics at that time and he had urinary retention so Saunders catheter was placed and has been following with Dr. Stewart outpatient. He has a pacemaker for history of complete heart block. Covid test in the ED was negative. 05/02 Patient opening his eyes and responding now. Saunders flushed several times through the night and is now draining clear yellow fluid instead of hematuria. 05/03 More alert and awake. Creatinine bumped again today. Will hold diuretics for now. Take off BiPAP and after an hour or so check of VBG. Awaiting urine culture. Has occasional cough but denies shortness of breath or other complaints. 05/04 Azevedo on nasal cannula half of that yesterday on BiPAP last night now on nasal cannula again. Patient with occasional cough denying shortness of breath at rest. Edema cleared up on chest x-ray but he feels as infiltrates and appears low but worse on the right, suspect aspiration has been part of the problem. Patient with chronic respiratory failure secondary to COPD. Patient requires ventilator at home. He has been in the hospital on vision BiPAP. His device is not providing enough support and needs rate support. Patient was hospitalized at [facility] for same thing not too long ago. Patient failing without adequate respiratory support at home. 05/05 Wore BiPAP last night. Now on 2 and half liters nasal cannula. Patient has occasional cough but denies shortness of breath. No overnight events. Sodium within normal limits. Creatinine stable but elevated. Procalcitonin improved. 05/06: Afebrile overnight. Hypoglycemia with BS 63 this morning. Been on BiPAP during the night, and been switching between BiPAP and nasal cannula during the day. Improving SOB. c/o nonproductive cough. Denies chest pain. Denies wheezing. Denies fever or chills. 05/07: Afebrile overnight. Been BiPAP dependent overnight and during the day. c/o SOB. c/o nonproductive cough. Denies chest pain. Denies wheezing. Denies fever or chills. 05/08: Afebrile overnight. Been on BiPAP overnight, and this morning he is tolerating room air. Denies SOB. Denies cough or sputum production. Denies wheezing. Denies fever or chills. 05/09: Afebrile overnight. Been on BiPAP overnight, and this morning he is tolerating room air. Denies SOB. Denies cough or sputum production. Denies wheezing. Denies fever or chills. 05/10: Afebrile overnight. Been on BiPAP overnight, and this afternoon he is on 4L nasal cannula oxygen. Denies SOB. Denies cough or sputum production. Denies wheezing. Denies fever or chills. Constitutional Vitals: Vital Signs Temp Pulse Resp BP Pulse Ox 36.4 C 74 46 H 125/87 93 05/10/21 12:00 05/10/21 07:46 05/10/21 12:00 05/10/21 12:00 05/10/21 12:00 Period Temp Pulse Resp BP Sys/Kulkarni Pulse Ox Last 24 Hr 36.2 C-37.0 C 74-81 24-46 110-128/55-87 91-96 Intake and Output 05/09/21 05/10/21 05/10/21 21:59 05:59 13:59 Intake Total 500 250 Output Total 1250 600 Balance 500 -1250 -350 Weight 119.295 kg Intake & Output: Intake & Output 08/28/21 08/29/21 08/29/21 21:59 05:59 13:59 Intake Total 500 250 Output Total 1250 600 Balance 500 -1250 -350 Weight 119.295 kg Intake: IV 50 Ampicillin 1 gm In Sodium 50 Chloride 0.9% 50 ml @ 100 mls/ hr IV Q12H [facility] Rx#:[id number] Oral 450 250 Output: Urine Catheter Amount 1250 600 Other: Meal Apple sauce, peaches, tuna Percent of Meal Consumed 100% Feeding Ability Independent Urine Appearance Hematuria Clear Clear Small Blood Clots Small Blood Clots Uretheral (Saunders) Hematuria Small Blood Clots Urine Color Blood Tinged Pale Bright Yellow Dark Yellow Uretheral (Saunders) Blood Tinged # Bowel Movements 0 General appearance: cooperative and no acute distress Head Head exam: Present atraumatic and normocephalic Eye Eye exam: Present EOMI and PERRL ENT ENT exam: Present mucous membranes moist, normal exam and normal external ear exam Additional comments: Nasal cannula in place Neck Neck exam: Present normal inspection; Absent lymphadenopathy, tenderness and thyromegaly Respiratory Respiratory exam: Present accessory muscle use and rhonchi; Absent respiratory distress and wheezes Additional comments: Tachypnea Cardiovascular Cardiovascular exam: Present normal rate and rhythm; Absent JVD GI/Abdominal GI/Abdominal exam: Present normal bowel sounds and soft; Absent organomegaly and tenderness Rectal Rectal exam: Present deferred Extremities Exam Extremities exam: Present full ROM, normal capillary refill and normal inspection; Absent tenderness Neurological Exam Neurological exam: Present alert, CN II-XII intact and oriented X3; Absent motor sensory deficit Psychiatric Psychiatric exam: Present normal affect and normal mood; Absent anxious and depressed Skin Skin exam: Present dry and intact OBJ DATA Labs CBC & Chem 7: 05/10/21 06:01 05/10/21 06:01 Labs: Abnormal Lab Results 05/10/21 05/10/21 05/09/21 06:01 06:01 05:24 RBC 3.75 L Hgb 10.2 L Hct 34.8 L MCHC 29.3 L MPV 11.1 H Neut % (Auto) 86.6 H Lymph % (Auto) 5.5 L Lymph # (Auto) 0.60 L Absolute Neutrophils 9.50 H Carbon Dioxide 36 H 36 H Anion Gap 5.0 L 6.0 L BUN 31 H 38 H Creatinine 1.3 H Glucose 188 H 161 H Calcium 8.4 L 8.4 L Total Protein 5.2 L 5.4 L Albumin 2.7 L 2.9 L Albumin/Globulin Ratio 05/09/21 05/08/21 05/08/21 05:24 05:55 05:55 RBC 3.68 L 3.73 L Hgb 10.4 L 10.6 L Hct 34.6 L 36.3 L MCHC 30.1 L 29.2 L MPV 11.0 H 10.8 H Neut % (Auto) 83.8 H 80.7 H Lymph % (Auto) 7.3 L 9.1 L Lymph # (Auto) 0.63 L 0.68 L Absolute Neutrophils Carbon Dioxide 34 H Anion Gap 6.0 L BUN 51 H Creatinine 1.5 H Glucose 125 H Calcium 8.5 L Total Protein 5.5 L Albumin 2.6 L Albumin/Globulin Ratio 0.9 L Meds: Medications Acetaminophen (Acetaminophen 325 Mg Tablet) 650 mg PO Q6HP PRN PRN Reason: PAIN/FEVER > 101 Albuterol/Ipratropium (Ipratropium/Albuterol 3 Ml Ampul.Neb) 3 ml NEB Q4HP PRN PRN Reason: Shortness Of Breath Last Admin: 05/09/21 20:17 Dose: 3 ml Documented by: Atorvastatin Calcium (Atorvastatin 40 Mg Tablet) 80 mg PO HS [facility] Last Admin: 05/09/21 20:22 Dose: 80 mg Documented by: Budesonide (Budesonide 0.5 Mg/2 Ml Ampul.Neb) 0.5 mg NEB Q12 [facility] Last Admin: 05/10/21 07:45 Dose: 0.5 mg Documented by: Clopidogrel Bisulfate (Clopidogrel 75 Mg Tablet) 75 mg PO DAILY [facility] Last Admin: 05/10/21 09:13 Dose: 75 mg Documented by: Dextrose (Dextrose 50% 50 Ml Vial) 0 ml IV UD PRN PRN Reason: Hypoglycemia Diagnostic Test (Pha) (Accu-Chek 1 Each Strip) 1 each FS ACHS [facility] Last Admin: 05/10/21 11:33 Dose: 1 each Documented by: Docusate Sodium (Docusate Sodium 100 Mg Capsule) 100 mg PO BID [facility] Last Admin: 05/10/21 09:13 Dose: 100 mg Documented by: Furosemide (Furosemide 20 Mg Tablet) 20 mg PO BIDD [facility] Last Admin: 05/10/21 09:13 Dose: 20 mg Documented by: Glucose (Dextrose 31 Gm Oral.Susp) 15 gm PO PRN PRN PRN Reason: Hypoglycemia Heparin Sodium (Porcine) (Heparin 5,000 Unit/Ml Vial) 5,000 unit SQ Q12 [facility] Last Admin: 05/10/21 09:14 Dose: 5,000 unit Documented by: Ampicillin Sodium 1 gm/ Sodium (Chloride) 50 mls @ 100 mls/hr IV Q12H [facility]; Protocol Last Admin: 05/10/21 09:25 Dose: 100 mls/hr Documented by: Magnesium Sulfate (Magnesium Sulfate) 2 gm in 50 mls @ 50 mls/hr IV UD PRN PRN Reason: Magnesium </= 1.6 Potassium Chloride 40 meq/ (Dextrose) 520 mls @ 130 mls/hr IV UD PRN PRN Reason: Potassium < 3 Insulin Glargine (Insulin Glargine, Human 1 Unit/0.01 Ml) 10 unit SQ BID [facility] Last Admin: 05/10/21 09:14 Dose: 10 unit Documented by: Insulin Human Lispro (Insulin Lispro 1 Unit/0.01 Ml Unit) 0 unit SQ ACHS [facility]; Protocol Last Admin: 05/10/21 11:33 Dose: 8 units Documented by: Melatonin (Melatonin 3 Mg Tablet) 3 mg PO HS [facility] Last Admin: 05/09/21 20:21 Dose: 3 mg Documented by: Metoclopramide HCl (Metoclopramide 10 Mg/2 Ml Vial) 10 mg IV Q6HP PRN PRN Reason: Nausea And Vomiting Metoprolol Tartrate (Metoprolol Tartrate 25 Mg Tablet) 25 mg PO BID [facility] Last Admin: 05/10/21 09:14 Dose: 25 mg Documented by: Metoprolol Tartrate (Metoprolol Tartrate 5 Mg/5 Ml Vial) 5 mg IV Q2HP PRN PRN Reason: Tachyarrhythmias HR>110 Metronidazole (Metronidazole 500 Mg Tablet) 500 mg PO Q8H [facility]; Protocol Last Admin: 05/10/21 04:53 Dose: 500 mg Documented by: Ondansetron HCl (Ondansetron 4 Mg/2 Ml Vial) 4 mg IV Q4HP PRN PRN Reason: Nausea And Vomiting Trifluoperazine 2 Mg (Tablet) 1 dose PO BID [facility] Last Admin: 05/10/21 09:26 Dose: 1 dose Documented by: Polyethylene Glycol (Polyethylene Glycol 3350 17 Gm Packet) 17 gm PO DAILYP PRN PRN Reason: Constipation Potassium Chloride (Potassium Chloride 20 Meq Tablet) 40 meq PO UD PRN PRN Reason: Potssium is 3-3.5 Potassium Chloride (Potassium Chloride 20 Meq Tablet) 40 meq PO UD PRN PRN Reason: Potassium < 3 Fluticasone/Salmeterol (Fluticasone/Salmeterol 250/50 Inhaler #14) 1 puff INH BID [facility] Last Admin: 05/10/21 09:07 Dose: Not Given Documented by: Senna (Sennosides 1 Tablet) 2 tab PO DAILYP PRN PRN Reason: Constipation Sodium Chloride (0.9 % Sodium Chloride 10 Ml Syringe) 10 ml IV Q8 [facility] Last Admin: 05/10/21 04:53 Dose: 10 ml Documented by: Tamsulosin HCl (Tamsulosin 0.4 Mg Capsule) 0.4 mg PO QDAY [facility] Last Admin: 05/10/21 09:14 Dose: 0.4 mg Documented by: A/P Assessment and plan (1) Type 2 diabetes mellitus: Status: Chronic (2) Acute and chronic respiratory failure with hypercapnia: Status: Acute (3) COPD with acute exacerbation: Status: Chronic (4) Congestive heart failure: Status: Acute (5) Aspiration pneumonia: Status: Acute (6) Metabolic encephalopathy: Status: Chronic (7) Acute on chronic kidney failure: Status: Acute (8) Urinary tract infection: Status: Chronic (9) Bilateral pleural effusion: Status: Acute Narrative A/P Narrative: Assessment and Plans: 1. Aspiration pneumonia with bilateral mild to moderate pleural effusion: Sputum culture no growth Blood culture no growth BiPAP at night, during the day try to wean patient off from BiPAP to nasal cannula if tolerated Ampicillin IV Flagyl PO for anaerobe coverage cbc w/ auto diff in the morning to trend WBC Lasix 20mg PO BID for bilateral mild to moderate pleural effusion Sleep study outpatient 2. h/o COPD: BiPAP at night, during the day try to wean patient off from BiPAP to nasal cannula if tolerated DuoNEB NEB PRN wheezing Advair Diskus 3. T2DM with hypoglycemia episode: HgA1c Hold oral hypoglycemics while inpatient Insulin Lantus 10 unit BID Correctional scale insulin AC HS Accu Chek AC HS Hypoglycemia protocol Diabetic diet 4. Grade II Diastolic CHF: Lasix 20mg PO BID Metoprolol tartrate 25mg PO BID Fluid restriction 2L/day Intake and output measures Daily weigh 5. UTI: Urine culture grew Group D strep Coverage with antibiotics, see #1 6. Essential HTN: Currently normotensive Continue Lasix and Lopressor PO 7. GINO and CKD stage IV: Avoid nephrotoxic agents Saline lock with gentle diuretics Daily CMP to trend kidney functions GI ppx: not currently indicated DVT ppx: Heparin Code status: DNI DNR Prognosis: extremely guarded Disposition: transfer to inpatient med surg telemetry; SNF resident Time Spent With Patient Time: Total time spent is greater than 50% in coordination of care (as do cumented) at patient's floor/unit and/or counseling patient:
[2021-05-10] MEDS: IPRATROPIUM/ALBUTEROL 3 ML AMPUL.NEB NEB PRN (20:17)
[2021-05-10] MEDS: MELATONIN 3 MG TABLET PO SCH (20:36)
[2021-05-10] MEDS: ATORVASTATIN 40 MG TABLET PO SCH (20:36)
[2021-05-11] MEDS: metroNIDAZOLE 500 MG TABLET PO SCH ×3 (06:19→21:36)
[2021-05-11] MEDS: 0.9 % SODIUM CHLORIDE 10 ML SYRINGE IV SCH ×3 (06:19→20:33)
[2021-05-11 07:19] LABS: Basophils # (Auto) 0.06 K/mcL (0.00-0.30); Basophils % (Auto) 0.5 % (0.0-2.0); Eosinophils # (Auto) 0.15 K/mcL (0.00-0.70); Eosinophils % (Auto) 1.3 % (0.0-7.0); Hematocrit 37.6 % (40.1-51.0); Hemoglobin 10.7 g/dL (13.7-17.5); Lymphocytes # (Auto) 0.71 K/mcL (1.50-4.80); Lymphocytes % (Auto) 6.3 % (15.5-49.0); Mean Cell Volume 96.4 fL (80.0-100.0); Mean Corpuscular HGB Conc 28.5 g/dL (31.0-36.0); Monocytes # (Auto) 0.76 K/mcL (0.10-0.90); Monocytes % (Auto) 6.7 % (1.0-12.0); Neutrophils % (Auto) 85.2 % (38.0-78.0); Platelet Count 240 K/mcL (140-440); Red Cell Distribution Width 13.3 % (11.5-14.5); WBC 11.4 K/mcL (4.5-11.0)
[2021-05-11] MEDS: INSULIN LISPRO 1 UNIT/0.01 ML UNIT SQ SCH ×4 (07:33→20:27)
[2021-05-11] MEDS: AMPICILLIN SODIUM 1 GM in 0.9 % SODIUM CHLORIDE 50 ML IV SCH ×2 (08:12→20:31)
[2021-05-11] MEDS: DOCUSATE SODIUM 100 MG CAPSULE PO SCH ×2 (08:13→20:32)
[2021-05-11] MEDS: TAMSULOSIN 0.4 MG CAPSULE PO SCH (08:13)
[2021-05-11] MEDS: HEPARIN 5,000 UNIT/ML VIAL SQ SCH ×2 (08:13→20:29)
[2021-05-11] MEDS: FUROSEMIDE 20 MG TABLET PO SCH ×2 (08:13→15:03)
[2021-05-11] MEDS: INSULIN GLARGINE, HUMAN 1 UNIT/0.01 ML SQ SCH ×2 (08:13→20:28)
[2021-05-11] MEDS: FLUTICASONE/SALMETEROL 250/50 INHALER #14 INH SCH ×2 (08:14→20:27)
[2021-05-11] MEDS: METOPROLOL TARTRATE 25 MG TABLET PO SCH ×2 (08:14→20:32)
[2021-05-11] MEDS: TRIFLUOPERAZINE 2 MG PO SCH ×2 (08:14→20:33)
[2021-05-11] MEDS: CLOPIDOGREL 75 MG TABLET PO SCH (08:14)
[2021-05-11 08:16] LABS: ALT/SGPT 17 U/L (<40); AST/SGOT 18 U/L (<40); Albumin 2.6 gm/dL (3.2-5.2); Albumin/Globulin Ratio 0.9 (1.0-2.3); Alkaline Phosphatase 79 U/L (39-117); Bilirubin,Total 0.3 mg/dL (0.1-1.0); Blood Urea Nitrogen 31 mg/dL (8-23); Calcium 8.4 mg/dL (8.6-10.4); Carbon Dioxide 35 mmol/L (22-30); Chloride 100 mmol/L (96-108); Globulin 2.8 gm/dL (2.2-3.7); Glomerular Filtration Rate 69; Glucose 155 mg/dL (70-105)
[2021-05-11] MEDS: BUDESONIDE 0.5 MG/2 ML AMPUL.NEB NEB SCH ×2 (08:22→20:52)
--- NOTE | 2021-05-11 12:12 | Internal Med Progress Note ---
SUBJECTIVE Subjective Patient information: Note initiated : 05/11/21 at 12:10 pm Service Date, if different from initiated Date: [] Patient: Vincent Caba a 85 y/o M admitted on 05/01/21 for Altered LOC. Chief Complaint: [Aspiration pneumonia] Interval history: History of present illness: Mr. Caba is a 85 year old M Presents the ED after found to have decreased responsiveness at the nursing facility. Patient is accompanied by a power of assistant attorney general who is a close friend as patient does not have family around. Sounds like he was in his normal state of health until yesterday, the power of assistant attorney general says the physician at the nursing facility want to get him into see his urologist. Today he sounds like he ate less of his breakfast but with otherwise hearing normal when he became poorly responsive and brought to the ED. In the ED he was found to be hypercapnic with a CO2 of 123 and a pH of 7.1. Chest x-ray with pulmonary edema. Patient unresponsive. Patient was recently admitted to [facility] in March for a hypercapnic respiratory failure was put on BiPAP steroids and antibiotics at that time and he had urinary retention so Saunders catheter was placed and has been following with Dr. Stewart outpatient. He has a pacemaker for history of complete heart block. Covid test in the ED was negative. 05/02 Patient opening his eyes and responding now. Saunders flushed several times through the night and is now draining clear yellow fluid instead of hematuria. 05/03 More alert and awake. Creatinine bumped again today. Will hold diuretics for now. Take off BiPAP and after an hour or so check of VBG. Awaiting urine culture. Has occasional cough but denies shortness of breath or other complaints. 05/04 Azevedo on nasal cannula half of that yesterday on BiPAP last night now on nasal cannula again. Patient with occasional cough denying shortness of breath at rest. Edema cleared up on chest x-ray but he feels as infiltrates and appears low but worse on the right, suspect aspiration has been part of the problem. Patient with chronic respiratory failure secondary to COPD. Patient requires ventilator at home. He has been in the hospital on vision BiPAP. His device is not providing enough support and needs rate support. Patient was hospitalized at [facility] for same thing not too long ago. Patient failing without adequate respiratory support at home. 05/05 Wore BiPAP last night. Now on 2 and half liters nasal cannula. Patient has occasional cough but denies shortness of breath. No overnight events. Sodium within normal limits. Creatinine stable but elevated. Procalcitonin improved. 05/06: Afebrile overnight. Hypoglycemia with BS 63 this morning. Been on BiPAP during the night, and been switching between BiPAP and nasal cannula during the day. Improving SOB. c/o nonproductive cough. Denies chest pain. Denies wheezing. Denies fever or chills. 05/07: Afebrile overnight. Been BiPAP dependent overnight and during the day. c/o SOB. c/o nonproductive cough. Denies chest pain. Denies wheezing. Denies fever or chills. 05/08: Afebrile overnight. Been on BiPAP overnight, and this morning he is tolerating room air. Denies SOB. Denies cough or sputum production. Denies wheezing. Denies fever or chills. 05/09: Afebrile overnight. Been on BiPAP overnight, and this morning he is tolerating room air. Denies SOB. Denies cough or sputum production. Denies wheezing. Denies fever or chills. 05/10: Afebrile overnight. Been on BiPAP overnight, and this afternoon he is on 4L nasal cannula oxygen. Denies SOB. Denies cough or sputum production. Denies wheezing. Denies fever or chills. 05/10: Afebrile overnight. Been on BiPAP overnight, and this morning he is on 2L/min nasal cannula oxygen. Denies SOB. Denies cough or sputum production. Denies wheezing. Denies fever or chills. Constitutional Vitals: Vital Signs Temp Pulse Resp BP Pulse Ox 36.6 C 61 34 H 119/100 94 05/11/21 11:03 05/11/21 11:03 05/11/21 11:03 05/11/21 11:03 05/11/21 11:03 Period Temp Pulse Resp BP Sys/Kulkarni Pulse Ox Last 24 Hr 36.0 C-36.6 C 49-86 20-44 105-145/55-100 91-96 Intake and Output 08/29/21 08/30/21 08/30/21 21:59 05:59 13:59 Intake Total 250 400 50 Output Total 700 800 Balance -450 -400 50 Weight 114.305 kg Intake & Output: Intake & Output 05/10/21 05/11/21 05/11/21 21:59 05:59 13:59 Intake Total 250 400 50 Output Total 700 800 Balance -450 -400 50 Weight 114.305 kg Intake: IV 100 50 Ampicillin 1 gm In Sodium 100 50 Chloride 0.9% 50 ml @ 100 mls/ hr IV Q12H [facility] Rx#:[id number] Oral 150 400 Output: Urine Catheter Amount 700 800 Other: Urine Appearance Clear Clear Uretheral (Saunders) Clear Urine Color Bright Yellow Dark Yellow Uretheral (Saunders) Dark Yellow Urine Odor Normal Normal General appearance: cooperative and no acute distress Head Head exam: Present atraumatic and normocephalic Eye Eye exam: Present EOMI and PERRL ENT ENT exam: Present mucous membranes moist, normal exam and normal external ear exam Additional comments: Nasal cannula in place Neck Neck exam: Present normal inspection; Absent lymphadenopathy, tenderness and thyromegaly Respiratory Respiratory exam: Present rhonchi; Absent accessory muscle use, respiratory distress and wheezes Cardiovascular Cardiovascular exam: Present normal rate and rhythm; Absent JVD GI/Abdominal GI/Abdominal exam: Present normal bowel sounds and soft; Absent organomegaly and tenderness Rectal Rectal exam: Present deferred Extremities Exam Extremities exam: Present full ROM, normal capillary refill and normal inspection; Absent tenderness Neurological Exam Neurological exam: Present alert, CN II-XII intact and oriented X3; Absent motor sensory deficit Psychiatric Psychiatric exam: Present normal affect and normal mood; Absent anxious and depressed Skin Skin exam: Present dry and intact OBJ DATA Labs CBC & Chem 7: 05/11/21 05:59 05/11/21 05:59 Labs: Abnormal Lab Results 05/11/21 05/11/21 05/10/21 05:59 05:59 06:01 WBC 11.4 H RBC 3.90 L Hgb 10.7 L Hct 37.6 L MCHC 28.5 L MPV 11.0 H Neut % (Auto) 85.2 H Lymph % (Auto) 6.3 L Lymph # (Auto) 0.71 L Absolute Neutrophils 9.67 H Carbon Dioxide 35 H 36 H Anion Gap 5.0 L 5.0 L BUN 31 H 31 H Creatinine Glucose 155 H 188 H Calcium 8.4 L 8.4 L Total Protein 5.4 L 5.2 L Albumin 2.6 L 2.7 L Albumin/Globulin Ratio 0.9 L 05/10/21 05/09/21 05/09/21 06:01 05:24 05:24 WBC RBC 3.75 L 3.68 L Hgb 10.2 L 10.4 L Hct 34.8 L 34.6 L MCHC 29.3 L 30.1 L MPV 11.1 H 11.0 H Neut % (Auto) 86.6 H 83.8 H Lymph % (Auto) 5.5 L 7.3 L Lymph # (Auto) 0.60 L 0.63 L Absolute Neutrophils 9.50 H Carbon Dioxide 36 H Anion Gap 6.0 L BUN 38 H Creatinine 1.3 H Glucose 161 H Calcium 8.4 L Total Protein 5.4 L Albumin 2.9 L Albumin/Globulin Ratio Meds: Medications Acetaminophen (Acetaminophen 325 Mg Tablet) 650 mg PO Q6HP PRN PRN Reason: PAIN/FEVER > 101 Albuterol/Ipratropium (Ipratropium/Albuterol 3 Ml Ampul.Neb) 3 ml NEB Q4HP PRN PRN Reason: Shortness Of Breath Last Admin: 05/10/21 20:17 Dose: 3 ml Documented by: Atorvastatin Calcium (Atorvastatin 40 Mg Tablet) 80 mg PO HS [facility] Last Admin: 05/10/21 20:36 Dose: 80 mg Documented by: Budesonide (Budesonide 0.5 Mg/2 Ml Ampul.Neb) 0.5 mg NEB Q12 [facility] Last Admin: 05/11/21 08:22 Dose: 0.5 mg Documented by: Clopidogrel Bisulfate (Clopidogrel 75 Mg Tablet) 75 mg PO DAILY [facility] Last Admin: 05/11/21 08:14 Dose: 75 mg Documented by: Dextrose (Dextrose 50% 50 Ml Vial) 0 ml IV UD PRN PRN Reason: Hypoglycemia Diagnostic Test (Pha) (Accu-Chek 1 Each Strip) 1 each FS ACHS [facility] Last Admin: 05/11/21 11:00 Dose: 1 each Documented by: Docusate Sodium (Docusate Sodium 100 Mg Capsule) 100 mg PO BID [facility] Last Admin: 05/11/21 08:13 Dose: 100 mg Documented by: Furosemide (Furosemide 20 Mg Tablet) 20 mg PO BIDD [facility] Last Admin: 05/11/21 08:13 Dose: 20 mg Documented by: Glucose (Dextrose 31 Gm Oral.Susp) 15 gm PO PRN PRN PRN Reason: Hypoglycemia Heparin Sodium (Porcine) (Heparin 5,000 Unit/Ml Vial) 5,000 unit SQ Q12 [facility] Last Admin: 05/11/21 08:13 Dose: 5,000 unit Documented by: Ampicillin Sodium 1 gm/ Sodium (Chloride) 50 mls @ 100 mls/hr IV Q12H [facility]; Protocol Last Infusion: 05/11/21 08:56 Dose: Infused Documented by: Magnesium Sulfate (Magnesium Sulfate) 2 gm in 50 mls @ 50 mls/hr IV UD PRN PRN Reason: Magnesium </= 1.6 Potassium Chloride 40 meq/ (Dextrose) 520 mls @ 130 mls/hr IV UD PRN PRN Reason: Potassium < 3 Insulin Glargine (Insulin Glargine, Human 1 Unit/0.01 Ml) 10 unit SQ BID [facility] Last Admin: 05/11/21 08:13 Dose: 10 unit Documented by: Insulin Human Lispro (Insulin Lispro 1 Unit/0.01 Ml Unit) 0 unit SQ ACHS [facility]; Protocol Last Admin: 05/11/21 11:00 Dose: 6 units Documented by: Melatonin (Melatonin 3 Mg Tablet) 3 mg PO HS [facility] Last Admin: 05/10/21 20:36 Dose: 3 mg Documented by: Metoclopramide HCl (Metoclopramide 10 Mg/2 Ml Vial) 10 mg IV Q6HP PRN PRN Reason: Nausea And Vomiting Metoprolol Tartrate (Metoprolol Tartrate 25 Mg Tablet) 25 mg PO BID [facility] Last Admin: 05/11/21 08:14 Dose: 25 mg Documented by: Metoprolol Tartrate (Metoprolol Tartrate 5 Mg/5 Ml Vial) 5 mg IV Q2HP PRN PRN Reason: Tachyarrhythmias HR>110 Metronidazole (Metronidazole 500 Mg Tablet) 500 mg PO Q8H [facility]; Protocol Last Admin: 05/11/21 06:19 Dose: 500 mg Documented by: Ondansetron HCl (Ondansetron 4 Mg/2 Ml Vial) 4 mg IV Q4HP PRN PRN Reason: Nausea And Vomiting Trifluoperazine 2 Mg (Tablet) 1 dose PO BID [facility] Last Admin: 05/11/21 08:14 Dose: 1 dose Documented by: Polyethylene Glycol (Polyethylene Glycol 3350 17 Gm Packet) 17 gm PO DAILYP PRN PRN Reason: Constipation Last Admin: 05/11/21 08:16 Dose: 17 gm Documented by: Potassium Chloride (Potassium Chloride 20 Meq Tablet) 40 meq PO UD PRN PRN Reason: Potssium is 3-3.5 Potassium Chloride (Potassium Chloride 20 Meq Tablet) 40 meq PO UD PRN PRN Reason: Potassium < 3 Fluticasone/Salmeterol (Fluticasone/Salmeterol 250/50 Inhaler #14) 1 puff INH BID [facility] Last Admin: 05/11/21 08:14 Dose: Not Given Documented by: Senna (Sennosides 1 Tablet) 2 tab PO DAILYP PRN PRN Reason: Constipation Sodium Chloride (0.9 % Sodium Chloride 10 Ml Syringe) 10 ml IV Q8 [facility] Last Admin: 05/11/21 06:19 Dose: 10 ml Documented by: Tamsulosin HCl (Tamsulosin 0.4 Mg Capsule) 0.4 mg PO QDAY [facility] Last Admin: 05/11/21 08:13 Dose: 0.4 mg Documented by: A/P Assessment and plan (1) Type 2 diabetes mellitus: Status: Chronic (2) Acute and chronic respiratory failure with hypercapnia: Status: Acute (3) COPD with acute exacerbation: Status: Chronic (4) Congestive heart failure: Status: Acute (5) Aspiration pneumonia: Status: Acute (6) Metabolic encephalopathy: Status: Chronic (7) Acute on chronic kidney failure: Status: Acute (8) Urinary tract infection: Status: Chronic (9) Bilateral pleural effusion: Status: Acute Narrative A/P Narrative: Assessment and Plans: 1. Aspiration pneumonia with bilateral mild to moderate pleural effusion: Sputum culture no growth Blood culture no growth BiPAP at night, during the day try to wean patient off from BiPAP to nasal cannula if tolerated Ampicillin IV Flagyl PO for anaerobe coverage cbc w/ auto diff in the morning to trend WBC Lasix 20mg PO BID for bilateral mild to moderate pleural effusion Sleep study outpatient Care conference today to discuss goal of care 2. h/o COPD: BiPAP at night, during the day try to wean patient off from BiPAP to nasal cannula if tolerated DuoNEB NEB PRN wheezing Advair Diskus 3. T2DM with hypoglycemia episode: HgA1c Hold oral hypoglycemics while inpatient Insulin Lantus 10 unit BID Correctional scale insulin AC HS Accu Chek AC HS Hypoglycemia protocol Diabetic diet 4. Grade II Diastolic CHF: Lasix 20mg PO BID Metoprolol tartrate 25mg PO BID Fluid restriction 2L/day Intake and output measures Daily weigh 5. UTI: Urine culture grew Group D strep Coverage with antibiotics, see #1 6. Essential HTN: Currently normotensive Continue Lasix and Lopressor PO 7. GINO and CKD stage IV: Avoid nephrotoxic agents Saline lock with gentle diuretics Daily CMP to trend kidney functions GI ppx: not currently indicated DVT ppx: Heparin Code status: DNI DNR Prognosis: extremely guarded Disposition: transfer to inpatient med surg telemetry; SNF resident Time Spent With Patient Time: Total time spent is greater than 50% in coordination of care (as documented) at patient's floor/unit and/or counseling patient:
[2021-05-11] MEDS: ATORVASTATIN 40 MG TABLET PO SCH (20:32)
[2021-05-11] MEDS: MELATONIN 3 MG TABLET PO SCH (20:32)
[2021-05-12] MEDS: 0.9 % SODIUM CHLORIDE 10 ML SYRINGE IV SCH ×3 (05:07→21:25)
[2021-05-12] MEDS: metroNIDAZOLE 500 MG TABLET PO SCH (05:07)
[2021-05-12 06:41] LABS: Basophils # (Auto) 0.07 K/mcL (0.00-0.30); Basophils % (Auto) 0.6 % (0.0-2.0); Eosinophils # (Auto) 0.17 K/mcL (0.00-0.70); Eosinophils % (Auto) 1.5 % (0.0-7.0); Hematocrit 36.8 % (40.1-51.0); Hemoglobin 10.6 g/dL (13.7-17.5); Lymphocytes # (Auto) 0.63 K/mcL (1.50-4.80); Lymphocytes % (Auto) 5.4 % (15.5-49.0); Mean Cell Volume 94.4 fL (80.0-100.0); Mean Corpuscular HGB Conc 28.8 g/dL (31.0-36.0); Mean Platelet Volume 11.2 fL (7.4-10.4); Monocytes # (Auto) 0.73 K/mcL (0.10-0.90); Monocytes % (Auto) 6.3 % (1.0-12.0); Neutrophils % (Auto) 86.2 % (38.0-78.0); Platelet Count 245 K/mcL (140-440); Red Cell Distribution Width 13.5 % (11.5-14.5); WBC 11.7 K/mcL (4.5-11.0)
[2021-05-12 07:27] LABS: ALT/SGPT 18 U/L (<40); AST/SGOT 17 U/L (<40); Albumin 2.8 gm/dL (3.2-5.2); Albumin/Globulin Ratio 1.1 (1.0-2.3); Alkaline Phosphatase 83 U/L (39-117); Bilirubin,Total 0.3 mg/dL (0.1-1.0); Blood Urea Nitrogen 28 mg/dL (8-23); Calcium 8.4 mg/dL (8.6-10.4); Carbon Dioxide 36 mmol/L (22-30); Chloride 98 mmol/L (96-108); Globulin 2.5 gm/dL (2.2-3.7); Glomerular Filtration Rate 78; Glucose 170 mg/dL (70-105)
[2021-05-12] MEDS: INSULIN LISPRO 1 UNIT/0.01 ML UNIT SQ SCH ×4 (08:26→21:23)
[2021-05-12] MEDS: IPRATROPIUM/ALBUTEROL 3 ML AMPUL.NEB NEB PRN ×2 (09:01→20:54)
[2021-05-12] MEDS: BUDESONIDE 0.5 MG/2 ML AMPUL.NEB NEB SCH ×2 (09:01→20:54)
--- NOTE | 2021-05-12 10:19 | Discharge Summary ---
Discharge Provider Provider Patient information: Note initiated : 05/12/21 at 10:15 am Service Date, if different from initiated Date: [] Patient: Vincent Caba 85 y/o M admitted on 05/01/21 for Altered LOC. Chief Complaint: [aspiration pneumonia] Date of admission: 05/01/21 16:35 Discharge date: 05/12/21 Primary care physician: Nic Schuler Consults: 05/01/21 Consult to Physician [CONS] Stat Comment: Consulting Provider: Urbano Irizarry Reason For Exam: Physician to Consult 05/03/21 10:21 Consult to Physician [CONS] Routine Comment: Consulting Provider: [facility] [place] Reason For Exam: Physician to Consult Discharge Meds Discharge Medications Home Medications trifluoperazine 2 mg PO BID 09/24/16 [History Confirmed 05/01/21 Last Taken 04/30/21] fluticasone 250 mcg-salmeterol 50 mcg/dose blistr powdr for inhalation 1 inh INHALATION BID 04/20/21 [History Confirmed 05/01/21 Last Taken 04/30/21] melatonin 5 mg capsule 5 mg PO HS 04/20/21 [History Confirmed 05/01/21 Last Taken Unknown] tamsulosin 0.4 mg capsule 0.4 mg PO QDAY 04/20/21 [History Confirmed 05/01/21 Last Taken 04/30/21] ipratropium-albuterol 3 ml INHALATION QID 05/01/21 [History Confirmed 05/01/21 Last Taken Unknown] polyethylene glycol 3350 [Miralax] 17 g PO DAILYP PRN 05/01/21 [History Confirmed 05/01/21 Last Taken Unknown] torsemide 0.5 mg PO DAILY 05/01/21 [History Confirmed 05/01/21 Last Taken 04/30/21] COURSE Hospital Course Hospital course: Patient was admitted on May 01, 2021 for acute on chronic respiratory failure with hypoxia secondary to aspiration pneumonia in the context of stable COPD and grade 2 diastolic CHF. He was being treated with supplemental oxygen as well as oral metronidazole and IV ampicillin. He was also being diagnosed with urinary tract infections with urine culture growing group B strep. His underlying stable COPD was being treated with bronchodilators DuoNeb as needed as well as Advair Diskus. His underlying grade 2 diastolic CHF was being treated with oral Lasix as well as oral Lopressor. He was BiPAP dependent for most of the date throughout his course of hospita lizations. Attempt was performed to try to wean him down and off the BiPAP but it was futile. Patient decided to be switched to hospice and be going back to his original SNF for hospice care on May 12, 2021. Discharge diagnosis: aspiration pneumonia Time Spent with Patient Time attestation: Total time spent providing and/or coordinating discharge services: Patient was admitted on May 01, 2021 for acute on chronic respiratory failure with hypoxia secondary to aspiration pneumonia in the context of stable COPD and grade 2 diastolic CHF. He was being treated with supplemental oxygen as well as oral metronidazole and IV ampicillin. He was also being diagnosed with urinary tract infections with urine culture growing group B strep. His underlying stable COPD was being treated with bronchodilators DuoNeb as needed as well as Advair Diskus. His underlying grade 2 diastolic CHF was being treated with oral Lasix as well as oral Lopressor. He was BiPAP dependent for most of the date throughout his course of hospitalizations. Attempt was performed to try to wean him down and off the BiPAP but it was futile. Patient decided to be switched to hospice and be going back to his original SNF for hospice care on May 12, 2021. EXAM Constitutional Vitals: Temp Pulse Resp BP Pulse Ox 36.6 C 85 22 124/77 94 05/12/21 08:00 05/12/21 09:32 05/12/21 09:32 05/12/21 08:00 05/12/21 09:32 General appearance: cooperative and no acute distress Head Head exam: Present atraumatic and normocephalic Eye Eye exam: Present EOMI and PERRL ENT ENT exam: Present mucous membranes moist, normal exam and normal external ear exam Additional comments: BiPAP in place Neck Neck exam: Present normal inspection; Absent lymphadenopathy, tenderness and thyromegaly Respiratory Respiratory exam: Present rhonchi and wheezes; Absent accessory muscle use and respiratory distress Cardiovascular Cardiovascular exam: Present normal rate and rhythm; Absent JVD GI/Abdominal GI/Abdominal exam: Present normal bowel sounds and soft; Absent organomegaly and tenderness Rectal Rectal exam: Present deferred Extremities Exam Extremities exam: Present full ROM, normal capillary refill and normal inspection; Absent tenderness Neurological Exam Neurological exam: Present alert, CN II-XII intact and oriented X3; Absent motor sensory deficit Psychiatric Psychiatric exam: Present normal affect and normal mood; Absent anxious and depressed Skin Skin exam: Present dry and intact Discharge Data Data Completed and Pending Labs on day of discharge: Labs from last 24 hours 05/12/21 05/12/21 04:54 04:54 WBC 11.7 H RBC 3.90 L Hgb 10.6 L Hct 36.8 L MCV 94.4 MCH 27.2 MCHC 28.8 L RDW 13.5 Plt Count 245 MPV 11.2 H Neut % (Auto) 86.2 H Lymph % (Auto) 5.4 L [place] % (Auto) 6.3 Eos % (Auto) 1.5 Baso % (Auto) 0.6 Lymph # (Auto) 0.63 L [place] # (Auto) 0.73 Eos # (Auto) 0.17 Baso # (Auto) 0.07 Absolute Neutrophils 10.08 H Sodium 139 Potassium 4.0 Chloride 98 Carbon Dioxide 36 H Anion Gap 5.0 L BUN 28 H Creatinine 0.9 GFR Calculation 78 Glucose 170 H Calcium 8.4 L Total Bilirubin 0.3 AST 17 ALT 18 Alkaline Phosphatase 83 Total Protein 5.3 L Albumin 2.8 L Globulin 2.5 Albumin/Globulin Ratio 1.1 Discharge Plan Patient/Caregiver Discharge Instructions Activity: increase activity as tolerated Diet: Consistent Carbohydrate Prescriptions: Continued trifluoperazine 2 MG tablet 2 mg PO BID RF: 0 ipratropium-albuterol 0.5 mg-3 mg(2.5 mg base)/3 mL solution for nebulization 3 ml INHALATION QID RF: 0 torsemide 10 mg tablet 0.5 mg PO DAILY RF: 0 polyethylene glycol 3350 [Miralax] 17 gram Powder In Packet 17 g PO DAILYP PRN (Reason: Constipation) RF: 0 melatonin 5 mg capsule 5 mg PO HS RF: 0 tamsulosin 0.4 mg capsule 0.4 mg PO QDAY RF: 0 fluticasone propion-salmeterol [Wixela Inhub] 250-50 mcg/dose blister with device 1 inh inhalation BID RF: 0 Discontinued clopidogrel [Plavix] 75 mg tablet 75 mg PO DAILY RF: 0 glipizide 5 mg tablet 2.5 mg PO DAILY RF: 0 Lantus U-100 Insulin 100 unit/mL Solution 17 unit SUBCUT QAM RF: 0 insulin aspart U-100 [Novolog U-100 Insulin aspart] 100 unit/mL solution See Rx Instructions .ROUTE .COMPLEX RF: 0 metoprolol tartrate 25 mg tablet 50 mg PO DAILY RF: 0 atorvastatin [Lipitor] 80 mg tablet 80 mg PO HS RF: 0 Lantus Solostar U-100 Insulin 100 unit/mL (3 mL) insulin pen 16 unit subcut HS RF: 0 Follow Up Plan Follow up with: Nic Schuler DO [Primary Care Provider] - Patient Disposition: [facility] SNF Prognosis: Critical Rehab Potential: Serious I certify that the patient requires SNF services: Yes Overall status at discharge: patient is not back to baseline Discharge Orders: Discharge Order (Routine); Ordered 05/12/21 Ordered By: Deon Aldridge
[2021-05-12] MEDS: CLOPIDOGREL 75 MG TABLET PO SCH (10:51)
[2021-05-12] MEDS: DOCUSATE SODIUM 100 MG CAPSULE PO SCH ×2 (10:51→21:22)
[2021-05-12] MEDS: METOPROLOL TARTRATE 25 MG TABLET PO SCH ×2 (10:51→21:22)
[2021-05-12] MEDS: TRIFLUOPERAZINE 2 MG PO SCH ×2 (10:52→21:22)
[2021-05-12] MEDS: FUROSEMIDE 20 MG TABLET PO SCH ×2 (10:52→19:11)
[2021-05-12] MEDS: TAMSULOSIN 0.4 MG CAPSULE PO SCH (10:52)
[2021-05-12] MEDS: AMPICILLIN SODIUM 1 GM in 0.9 % SODIUM CHLORIDE 50 ML IV SCH (11:01)
[2021-05-12] MEDS: FLUTICASONE/SALMETEROL 250/50 INHALER #14 INH SCH ×2 (11:01→21:25)
[2021-05-12] MEDS: HEPARIN 5,000 UNIT/ML VIAL SQ SCH (11:02)
[2021-05-12] MEDS: INSULIN GLARGINE, HUMAN 1 UNIT/0.01 ML SQ SCH ×2 (11:02→21:24)
--- NOTE | 2021-05-12 11:43 | Internal Med Progress Note ---
SUBJECTIVE Subjective Patient information: Note initiated : 05/12/21 at 11:39 am Service Date, if different from initiated Date: [] Patient: Vincent Caba a 85 y/o M admitted on 05/01/21 for Altered LOC. Chief Complaint: [aspiration pneumonia] Interval history: History of present illness: Mr. Caba is a 85 year old M Presents the ED after found to have decreased responsiveness at the nursing facility. Patient is accompanied by a power of insurance attorney who is a close friend as patient does not have family around. Sounds like he was in his normal state of health until yesterday, the power of insurance attorney says the physician at the nursing facility want to get him into see his urologist. Today he sounds like he ate less of his breakfast but with otherwise hearing normal when he became poorly responsive and brought to the ED. In the ED he was found to be hypercapnic with a CO2 of 123 and a pH of 7.1. Chest x-ray with pulmonary edema. Patient unresponsive. Patient was recently admitted to [facility] in March for a hypercapnic respiratory failure was put on BiPAP steroids and antibiotics at that time and he had urinary retention so Saunders catheter was placed and has been following with Dr. Stewart outpatient. He has a pacemaker for history of complete heart block. Covid test in the ED was negative. 05/02 Patient opening his eyes and responding now. Saunders flushed several times through the night and is now draining clear yellow fluid instead of hematuria. 05/03 More alert and awake. Creatinine bumped again today. Will hold diuretics for now. Take off BiPAP and after an hour or so check of VBG. Awaiting urine culture. Has occasional cough but denies shortness of breath or other complaints. 05/04 Azevedo on nasal cannula half of that yesterday on BiPAP last night now on nasal cannula again. Patient with occasional cough denying shortness of breath at rest. Edema cleared up on chest x-ray but he feels as infiltrates and appears low but worse on the right, suspect aspiration has been part of the problem. Patient with chronic respiratory failure secondary to COPD. Patient requires ventilator at home. He has been in the hospital on vision BiPAP. His device is not providing enough support and needs rate support. Patient was hospitalized at [facility] for same thing not too long ago. Patient failing without adequate respiratory support at home. 05/05 Wore BiPAP last night. Now on 2 and half liters nasal cannula. Patient has occasional cough but denies shortness of breath. No overnight events. Sodium within normal limits. Creatinine stable but elevated. Procalcitonin improved. 05/06: Afebrile overnight. Hypoglycemia with BS 63 this morning. Been on BiPAP during the night, and been switching between BiPAP and nasal cannula during the day. Improving SOB. c/o nonproductive cough. Denies chest pain. Denies wheezing. Denies fever or chills. 05/07: Afebrile overnight. Been BiPAP dependent overnight and during the day. c/o SOB. c/o nonproductive cough. Denies chest pain. Denies wheezing. Denies fever or chills. 05/08: Afebrile overnight. Been on BiPAP overnight, and this morning he is tolerating room air. Denies SOB. Denies cough or sputum production. Denies wheezing. Denies fever or chills. 05/09: Afebrile overnight. Been on BiPAP overnight, and this morning he is tolerating room air. Denies SOB. Denies cough or sputum production. Denies wheezing. Denies fever or chills. 05/10: Afebrile overnight. Been on BiPAP overnight, and this afternoon he is on 4L nasal cannula oxygen. Denies SOB. Denies cough or sputum production. Denies wheezing. Denies fever or chills. 05/11: Afebrile overnight. Been on BiPAP overnight, and this morning he is on 2L/min nasal cannula oxygen. Denies SOB. Denies cough or sputum production. Denies wheezing. Denies fever or chills. 05/12: Had a care conference with patient and POA last evening. Decided to go back to the same SNF where he used to live with hospice. Pending approval. Otherwise there was no other major overnight events. Still on BiPAP for most of the time. Constitutional Vitals: Vital Signs Temp Pulse Resp BP Pulse Ox 36.6 C 85 22 124/77 94 05/12/21 08:00 05/12/21 09:32 05/12/21 09:32 05/12/21 08:00 05/12/21 09:32 Period Temp Pulse Resp BP Sys/Kulkarni Pulse Ox Last 24 Hr 35.7 C-36.8 C 68-98 22-38 121-150/61-96 90-98 Intake and Output 05/11/21 05/12/21 05/12/21 21:59 05:59 13:59 Intake Total 650 100 Output Total 500 700 Balance 150 -600 Weight 111.72 kg Intake & Output: Intake & Output 05/11/21 05/12/21 05/12/21 21:59 05:59 13:59 Intake Total 650 100 Output Total 500 700 Balance 150 -600 Weight 111.72 kg Intake: IV 50 Ampicillin 1 gm In Sodium 50 Chloride 0.9% 50 ml @ 100 mls/ hr IV Q12H MARLEE Rx#:[id number] Oral 600 100 Output: Urine Catheter Amount 500 700 Other: Meal Lunch Breakfast Percent of Meal Consumed 75% 50% Feeding Ability Needs Supervision Assist with Tray Set Up Urine Appearance Clear Clear Uretheral (Saunders) Clear Urine Color Bright Yellow Pale Uretheral (Saunders) Pale Urine Odor Normal # Bowel Movements 0 General appearance: cooperative and no acute distress Head Head exam: Present atraumatic and normocephalic Eye Eye exam: Present EOMI and PERRL ENT ENT exam: Present mucous membranes moist, normal exam and normal external ear exam Additional comments: BiPAP in place Neck Neck exam: Present normal inspection; Absent lymphadenopathy, tenderness and thyromegaly Respiratory Respiratory exam: Present rhonchi and wheezes; Absent accessory muscle use and respiratory distress Cardiovascular Cardiovascular exam: Present normal rate and rhythm; Absent JVD GI/Abdominal GI/Abdominal exam: Present normal bowel sounds and soft; Absent organomegaly and tenderness Rectal Rectal exam: Present deferred Extremities Exam Extremities exam: Present full ROM, normal capillary refill and normal inspection; Absent tenderness Neurological Exam Neurological exam: Present alert, CN II-XII intact and oriented X3; Absent motor sensory deficit Psychiatric Psychiatric exam: Present normal affect and normal mood; Absent anxious and depressed Skin Skin exam: Present dry and intact OBJ DATA Labs CBC & Chem 7: 05/12/21 04:54 05/12/21 04:54 Labs: Abnormal Lab Results 05/12/21 05/12/21 05/11/21 04:54 04:54 05:59 WBC 11.7 H RBC 3.90 L Hgb 10.6 L Hct 36.8 L MCHC 28.8 L MPV 11.2 H Neut % (Auto) 86.2 H Lymph % (Auto) 5.4 L Lymph # (Auto) 0.63 L Absolute Neutrophils 10.08 H Carbon Dioxide 36 H 35 H Anion Gap 5.0 L 5.0 L BUN 28 H 31 H Glucose 170 H 155 H Calcium 8.4 L 8.4 L Total Protein 5.3 L 5.4 L Albumin 2.8 L 2.6 L Albumin/Globulin Ratio 0.9 L 05/11/21 05/10/21 05/10/21 05:59 06:01 06:01 WBC 11.4 H RBC 3.90 L 3.75 L Hgb 10.7 L 10.2 L Hct 37.6 L 34.8 L MCHC 28.5 L 29.3 L MPV 11.0 H 11.1 H Neut % (Auto) 85.2 H 86.6 H Lymph % (Auto) 6.3 L 5.5 L Lymph # (Auto) 0.71 L 0.60 L Absolute Neutrophils 9.67 H 9.50 H Carbon Dioxide 36 H Anion Gap 5.0 L BUN 31 H Glucose 188 H Calcium 8.4 L Total Protein 5.2 L Albumin 2.7 L Albumin/Globulin Ratio Meds: Medications Acetaminophen (Acetaminophen 325 Mg Tablet) 650 mg PO Q6HP PRN PRN Reason: PAIN/FEVER > 101 Albuterol/Ipratropium (Ipratropium/Albuterol 3 Ml Ampul.Neb) 3 ml NEB Q4HP PRN PRN Reason: Shortness Of Breath Last Admin: 05/12/21 09:01 Dose: 3 ml Documented by: Atorvastatin Calcium (Atorvastatin 40 Mg Tablet) 80 mg PO HS [facility] Last Admin: 05/11/21 20:32 Dose: 80 mg Documented by: Budesonide (Budesonide 0.5 Mg/2 Ml Ampul.Neb) 0.5 mg NEB Q12 [facility] Last Admin: 05/12/21 09:01 Dose: 0.5 mg Documented by: Clopidogrel Bisulfate (Clopidogrel 75 Mg Tablet) 75 mg PO DAILY [facility] Last Admin: 05/12/21 10:51 Dose: 75 mg Documented by: Dextrose (Dextrose 50% 50 Ml Vial) 0 ml IV UD PRN PRN Reason: Hypoglycemia Diagnostic Test (Pha) (Accu-Chek 1 Each Strip) 1 each FS ACHS [facility] Last Admin: 05/12/21 08:17 Dose: 1 each Documented by: Docusate Sodium (Docusate Sodium 100 Mg Capsule) 100 mg PO BID [facility] Last Admin: 05/12/21 10:51 Dose: 100 mg Documented by: Furosemide (Furosemide 20 Mg Tablet) 20 mg PO BIDD [facility] Last Admin: 05/12/21 10:52 Dose: 20 mg Documented by: Glucose (Dextrose 31 Gm Oral.Susp) 15 gm PO PRN PRN PRN Reason: Hypoglycemia Heparin Sodium (Porcine) (Heparin 5,000 Unit/Ml Vial) 5,000 unit SQ Q12 [facility] Last Admin: 05/12/21 11:02 Dose: Not Given Documented by: Ampicillin Sodium 1 gm/ Sodium (Chloride) 50 mls @ 100 mls/hr IV Q12H [facility]; Protocol Last Admin: 05/12/21 11:01 Dose: Not Given Documented by: Magnesium Sulfate (Magnesium Sulfate) 2 gm in 50 mls @ 50 mls/hr IV UD PRN PRN Reason: Magnesium </= 1.6 Potassium Chloride 40 meq/ (Dextrose) 520 mls @ 130 mls/hr IV UD PRN PRN Reason: Potassium < 3 Insulin Glargine (Insulin Glargine, Human 1 Unit/0.01 Ml) 10 unit SQ BID [facility] Last Admin: 05/12/21 11:02 Dose: Not Given Documented by: Insulin Human Lispro (Insulin Lispro 1 Unit/0.01 Ml Unit) 0 unit SQ [facility]; Protocol Last Admin: 05/12/21 08:26 Dose: 6 units Documented by: Melatonin (Melatonin 3 Mg Tablet) 3 mg PO HS [facility] Last Admin: 05/11/21 20:32 Dose: 3 mg Documented by: Metoclopramide HCl (Metoclopramide 10 Mg/2 Ml Vial) 10 mg IV Q6HP PRN PRN Reason: Nausea And Vomiting Metoprolol Tartrate (Metoprolol Tartrate 25 Mg Tablet) 25 mg PO BID [facility] Last Admin: 05/12/21 10:51 Dose: 25 mg Documented by: Metoprolol Tartrate (Metoprolol Tartrate 5 Mg/5 Ml Vial) 5 mg IV Q2HP PRN PRN Reason: Tachyarrhythmias HR>110 Metronidazole (Metronidazole 500 Mg Tablet) 500 mg PO Q8H [facility]; Protocol Last Admin: 05/12/21 05:07 Dose: 500 mg Documented by: Ondansetron HCl (Ondansetron 4 Mg/2 Ml Vial) 4 mg IV Q4HP PRN PRN Reason: Nausea And Vomiting Trifluoperazine 2 Mg (Tablet) 1 dose PO BID [facility] Last Admin: 05/12/21 10:52 Dose: 1 dose Documented by: Polyethylene Glycol (Polyethylene Glycol 3350 17 Gm Packet) 17 gm PO DAILYP PRN PRN Reason: Constipation Last Admin: 05/11/21 08:16 Dose: 17 gm Documented by: Potassium Chloride (Potassium Chloride 20 Meq Tablet) 40 meq PO UD PRN PRN Reason: Potssium is 3-3.5 Potassium Chloride (Potassium Chloride 20 Meq Tablet) 40 meq PO UD PRN PRN Reason: Potassium < 3 Fluticasone/Salmeterol (Fluticasone/Salmeterol 250/50 Inhaler #14) 1 puff INH BID [facility] Last Admin: 05/12/21 11:01 Dose: Not Given Documented by: Senna (Sennosides 1 Tablet) 2 tab PO DAILYP PRN PRN Reason: Constipation Sodium Chloride (0.9 % Sodium Chloride 10 Ml Syringe) 10 ml IV Q8 [facility] Last Admin: 05/12/21 05:07 Dose: 10 ml Documented by: Tamsulosin HCl (Tamsulosin 0.4 Mg Capsule) 0.4 mg PO QDAY [facility] Last Admin: 05/12/21 10:52 Dose: 0.4 mg Documented by: A/P Assessment and plan (1) Type 2 diabetes mellitus: Status: Chronic (2) Acute and chronic respiratory failure with hypercapnia: Status: Acute (3) COPD with acute exacerbation: Status: Chronic (4) Congestive heart failure: Status: Acute (5) Aspiration pneumonia: Status: Acute (6) Metabolic encephalopathy: Status: Chronic (7) Acute on chronic kidney failure: Status: Acute (8) Urinary tract infection: Status: Chronic (9) Bilateral pleural effusion: Status: Acute Narrative A/P Narrative: Assessment and Plans: 1. Aspiration pneumonia with bilateral mild to moderate pleural effusion: Sputum culture no growth Blood culture no growth Still on BiPAP for most of the time Ampicillin IV Flagyl PO for anaerobe coverage cbc w/ auto diff in the morning to trend WBC Lasix 20mg PO BID for bilateral mild to moderate pleural effusion Sleep study outpatient Had a care conference with patient and POA last evening. Decided to go back to the same SNF where he used to live with hospice. Pending approval. Still on BiPAP for most of the time. 2. h/o COPD: BiPAP at night, during the day try to wean patient off from BiPAP to nasal cannula if tolerated DuoNEB NEB PRN wheezing Advair Diskus 3. T2DM with hypoglycemia episode: HgA1c Hold oral hypoglycemics while inpatient Insulin Lantus 10 unit BID Correctional scale insulin AC HS Accu Chek AC HS Hypoglycemia protocol Diabetic diet 4. Grade II Diastolic CHF: Lasix 20mg PO BID Metoprolol tartrate 25mg PO BID Fluid restriction 2L/day Intake and output measures Daily weigh 5. UTI: Urine culture grew Group D strep Coverage with antibiotics, see #1 6. Essential HTN: Currently normotensive Continue Lasix and Lopressor PO 7. GINO and CKD stage IV: Avoid nephrotoxic agents Saline lock with gentle diuretics Daily CMP to trend kidney functions GI ppx: not currently indicated DVT ppx: Heparin Code status: DNI DNR Prognosis: poor Disposition: pending hospice discharge Time Spent With Patient Time: Total time spent is greater than 50% in coordination of care (as documented) at patient's floor/unit and/or counseling patient:
[2021-05-12] MEDS: MELATONIN 3 MG TABLET PO SCH (21:22)
[2021-05-12] MEDS: ATORVASTATIN 40 MG TABLET PO SCH (21:23)
[2021-05-13] MEDS: 0.9 % SODIUM CHLORIDE 10 ML SYRINGE IV SCH (04:19)
[2021-05-13] MEDS: INSULIN GLARGINE, HUMAN 1 UNIT/0.01 ML SQ SCH (07:59)
[2021-05-13] MEDS: INSULIN LISPRO 1 UNIT/0.01 ML UNIT SQ SCH ×2 (07:59→12:09)
[2021-05-13] MEDS: CLOPIDOGREL 75 MG TABLET PO SCH (08:00)
[2021-05-13] MEDS: METOPROLOL TARTRATE 25 MG TABLET PO SCH (08:00)
[2021-05-13] MEDS: TAMSULOSIN 0.4 MG CAPSULE PO SCH (08:00)
[2021-05-13] MEDS: DOCUSATE SODIUM 100 MG CAPSULE PO SCH (08:01)
[2021-05-13] MEDS: FUROSEMIDE 20 MG TABLET PO SCH (08:01)
[2021-05-13] MEDS: FLUTICASONE/SALMETEROL 250/50 INHALER #14 INH SCH (08:11)
[2021-05-13] MEDS: BUDESONIDE 0.5 MG/2 ML AMPUL.NEB NEB SCH (08:33)
[2021-05-13] MEDS: IPRATROPIUM/ALBUTEROL 3 ML AMPUL.NEB NEB PRN (08:33)
[2021-05-13] MEDS: TRIFLUOPERAZINE 2 MG PO SCH (09:00)
--- NOTE | 2021-05-13 11:08 | Internal Med Progress Note ---
SUBJECTIVE Subjective Patient information: Note initiated : 05/13/21 at 11:02 am Service Date, if different from initiated Date: [] Patient: Vincent Caba a 85 y/o M admitted on 05/01/21 for Altered LOC. Chief Complaint: [] Interval history: History of present illness: Mr. Caba is a 85 year old M Presents the ED after found to have decreased responsiveness at the nursing facility. Patient is accompanied by a power of home theater experience expert who is a close friend as patient does not have family around. Sounds like he was in his normal state of health until yesterday, the power of home theater experience expert says the physician at the nursing facility want to get him into see his urologist. Today he sounds like he ate less of his breakfast but with otherwise hearing normal when he became poorly responsive and brought to the ED. In the ED he was found to be hypercapnic with a CO2 of 123 and a pH of 7.1. Chest x-ray with pulmonary edema. Patient unresponsive. Patient was recently admitted to [facility] in March for a hypercapnic respiratory failure was put on BiPAP steroids and antibiotics at that time and he had urinary retention so Saunders catheter was placed and has been following with Dr. Stewart outpatient. He has a pacemaker for history of complete heart block. Covid test in the ED was negative. 05/02 Patient opening his eyes and responding now. Saunders flushed several times through the night and is now draining clear yellow fluid instead of hematuria. 05/03 More alert and awake. Creatinine bumped again today. Will hold diuretics for now. Take off BiPAP and after an hour or so check of VBG. Awaiting urine culture. Has occasional cough but denies shortness of breath or other complaints. 05/04 Azevedo on nasal cannula half of that yesterday on BiPAP last night now on nasal cannula again. Patient with occasional cough denying shortness of breath at rest. Edema cleared up on chest x-ray but he feels as infiltrates and appears low but worse on the right, suspect aspiration has been part of the problem. Patient with chronic respiratory failure secondary to COPD. Patient requires ventilator at home. He has been in the hospital on vision BiPAP. His device is not providing enough support and needs rate support. Patient was hospitalized at [facility] for same thing not too long ago. Patient failing without adequate respiratory support at home. 05/05 Wore BiPAP last night. Now on 2 and half liters nasal cannula. Patient has occasional cough but denies shortness of breath. No overnight events. Sodium within normal limits. Creatinine stable but elevated. Procalcitonin improved. 05/06: Afebrile overnight. Hypoglycemia with BS 63 this morning. Been on BiPAP during the night, and been switching between BiPAP and nasal cannula during the day. Improving SOB. c/o nonproductive cough. Denies chest pain. Denies wheezing. Denies fever or chills. 05/07: Afebrile overnight. Been BiPAP dependent overnight and during the day. c/o SOB. c/o nonproductive cough. Denies chest pain. Denies wheezing. Denies fever or chills. 05/08: Afebrile overnight. Been on BiPAP overnight, and this morning he is tolerating room air. Denies SOB. Denies cough or sputum production. Denies wheezing. Denies fever or chills. 05/09: Afebrile overnight. Been on BiPAP overnight, and this morning he is tolerating room air. Denies SOB. Denies cough or sputum production. Denies wheezing. Denies fever or chills. 05/10: Afebrile overnight. Been on BiPAP overnight, and this afternoon he is on 4L nasal cannula oxygen. Denies SOB. Denies cough or sputum production. Denies wheezing. Denies fever or chills. 05/11: Afebrile overnight. Been on BiPAP overnight, and this morning he is on 2L/min nasal cannula oxygen. Denies SOB. Denies cough or sputum production. Denies wheezing. Denies fever or chills. 05/12: Had a care conference with patient and POA last evening. Decided to go back to the same SNF where he used to live with hospice. Pending approval. Enrique thomas there was no other major overnight events. Still on BiPAP for most of the time. 05/13 no change overnight. Still awaiting placement. Was supposed to go yesterday. Review of Systems: denies headache/fever/chills/nausea/vomiting/chest or abdominal pain/diarrhea. Otherwise see above. Constitutional Vitals: Vital Signs Temp Pulse Resp BP Pulse Ox 97.2 F 100 H 38 H 145/110 90 05/13/21 07:36 05/13/21 08:34 05/13/21 08:34 05/13/21 07:36 05/13/21 07:36 Period Temp Pulse Resp BP Sys/Kulkarni Pulse Ox Last 24 Hr 96.9 F-98.6 F 75-100 24-38 129-147/68-110 90-96 Intake and Output 05/12/21 05/13/21 05/13/21 21:59 05:59 13:59 Intake Total 540 520 240 Output Total 500 900 Balance 40 -380 240 Weight 110.994 kg Intake & Output: Intake & Output 05/12/21 05/13/21 05/13/21 21:59 05:59 13:59 Intake Total 540 520 240 Output Total 500 900 Balance 40 -380 240 Weight 110.994 kg Intake: Oral 540 520 240 Output: Urine Catheter Amount 900 Void Amount 500 Other: Meal Dinner Breakfast Percent of Meal Consumed 100% 100% Feeding Ability Total Assistance Urine Appearance Clear Clear Uretheral (Saunders) Clear Urine Color Pale Bright Yellow Uretheral (Saunders) Pale Stool Consistency Soft Formed # of times incontinent of 1 Bowels Exam: General: alert and awake, no acute distress, obese eyes/N/T: EOMI head/Neck: neck supple, CV:irregular, No murmurs, Pulm: b/l rhonchi, no wheezing Abd: soft, nontender, +BS x4 Ext: no clubbing/cyanosis, mild+ b/l LE edema improved Neuro: alert and Awake, follows commands, moves extremities skin: warm/dry OBJ DATA Labs CBC & Chem 7: 05/12/21 04:54 05/12/21 04:54 Labs: Abnormal Lab Results 05/12/21 05/12/21 05/11/21 04:54 04:54 05:59 WBC 11.7 H RBC 3.90 L Hgb 10.6 L Hct 36.8 L MCHC 28.8 L MPV 11.2 H Neut % (Auto) 86.2 H Lymph % (Auto) 5.4 L Lymph # (Auto) 0.63 L Absolute Neutrophils 10.08 H Carbon Dioxide 36 H 35 H Anion Gap 5.0 L 5.0 L BUN 28 H 31 H Glucose 170 H 155 H Calcium 8.4 L 8.4 L Total Protein 5.3 L 5.4 L Albumin 2.8 L 2.6 L Albumin/Globulin Ratio 0.9 L 05/11/21 05:59 WBC 11.4 H RBC 3.90 L Hgb 10.7 L Hct 37.6 L MCHC 28.5 L MPV 11.0 H Neut % (Auto) 85.2 H Lymph % (Auto) 6.3 L Lymph # (Auto) 0.71 L Absolute Neutrophils 9.67 H Carbon Dioxide Anion Gap BUN Glucose Calcium Total Protein Albumin Albumin/Globulin Ratio Meds: Medications Acetaminophen (Acetaminophen 325 Mg Tablet) 650 mg PO Q6HP PRN PRN Reason: PAIN/FEVER > 101 Albuterol/Ipratropium (Ipratropium/Albuterol 3 Ml Ampul.Neb) 3 ml NEB Q4HP PRN PRN Reason: Shortness Of Breath Last Admin: 05/13/21 08:33 Dose: 3 ml Documented by: Atorvastatin Calcium (Atorvastatin 40 Mg Tablet) 80 mg PO HS [facility] Last Admin: 05/12/21 21:23 Dose: 80 mg Documented by: Budesonide (Budesonide 0.5 Mg/2 Ml Ampul.Neb) 0.5 mg NEB Q12 [facility] Last Admin: 05/13/21 08:33 Dose: 0.5 mg Documented by: Clopidogrel Bisulfate (Clopidogrel 75 Mg Tablet) 75 mg PO DAILY [facility] Last Admin: 05/13/21 08:00 Dose: 75 mg Documented by: Dextrose (Dextrose 50% 50 Ml Vial) 0 ml IV UD PRN PRN Reason: Hypoglycemia Diagnostic Test (Pha) (Accu-Chek 1 Each Strip) 1 each FS ACHS [facility] Last Admin: 05/13/21 07:59 Dose: 1 each Documented by: Docusate Sodium (Docusate Sodium 100 Mg Capsule) 100 mg PO BID [facility] Last Admin: 05/13/21 08:01 Dose: 100 mg Documented by: Furosemide (Furosemide 20 Mg Tablet) 20 mg PO BIDD [facility] Last Admin: 05/13/21 08:01 Dose: 20 mg Documented by: Glucose (Dextrose 31 Gm Oral.Susp) 15 gm PO PRN PRN PRN Reason: Hypoglycemia Magnesium Sulfate (Magnesium Sulfate) 2 gm in 50 mls @ 50 mls/hr IV UD PRN PRN Reason: Magnesium </= 1.6 Potassium Chloride 40 meq/ (Dextrose) 520 mls @ 130 mls/hr IV UD PRN PRN Reason: Potassium < 3 Insulin Glargine (Insulin Glargine, Human 1 Unit/0.01 Ml) 10 unit SQ BID [facility] Last Admin: 05/13/21 07:59 Dose: 10 unit Documented by: Insulin Human Lispro (Insulin Lispro 1 Unit/0.01 Ml Unit) 0 unit SQ ACHS [facility]; Protocol Last Admin: 05/13/21 07:59 Dose: 6 units Documented by: Melatonin (Melatonin 3 Mg Tablet) 3 mg PO HS [facility] Last Admin: 05/12/21 21:22 Dose: 3 mg Documented by: Metoclopramide HCl (Metoclopramide 10 Mg/2 Ml Vial) 10 mg IV Q6HP PRN PRN Reason: Nausea And Vomiting Metoprolol Tartrate (Metoprolol Tartrate 25 Mg Tablet) 25 mg PO BID [facility] Last Admin: 05/13/21 08:00 Dose: 25 mg Documented by: Metoprolol Tartrate (Metoprolol Tartrate 5 Mg/5 Ml Vial) 5 mg IV Q2HP PRN PRN Reason: Tachyarrhythmias HR>110 Ondansetron HCl (Ondansetron 4 Mg/2 Ml Vial) 4 mg IV Q4HP PRN PRN Reason: Nausea And Vomiting Trifluoperazine 2 Mg (Tablet) 1 dose PO BID [facility] Last Admin: 05/12/21 21:22 Dose: 1 dose Documented by: Polyethylene Glycol (Polyethylene Glycol 3350 17 Gm Packet) 17 gm PO DAILYP PRN PRN Reason: Constipation Last Admin: 05/11/21 08:16 Dose: 17 gm Documented by: Potassium Chloride (Potassium Chloride 20 Meq Tablet) 40 meq PO UD PRN PRN Reason: Potssium is 3-3.5 Potassium Chloride (Potassium Chloride 20 Meq Tablet) 40 meq PO UD PRN PRN Reason: Potassium < 3 Fluticasone/Salmeterol (Fluticasone/Salmeterol 250/50 Inhaler #14) 1 puff INH BID [facility] Last Admin: 05/13/21 08:11 Dose: Not Given Documented by: Senna (Sennosides 1 Tablet) 2 tab PO DAILYP PRN PRN Reason: Constipation Sodium Chloride (0.9 % Sodium Chloride 10 Ml Syringe) 10 ml IV Q8 [facility] Last Admin: 05/13/21 04:19 Dose: 10 ml Documented by: Tamsulosin HCl (Tamsulosin 0.4 Mg Capsule) 0.4 mg PO QDAY [facility] Last Admin: 05/13/21 08:00 Dose: 0.4 mg Documented by: A/P Narrative A/P Narrative: A/P Narrative: Assessment and Plans: 1. Aspiration pneumonia with bilateral mild to moderate pleural effusion: Sputum culture no growth Blood culture no growth Still on BiPAP for most of the time finished abx Lasix 20mg PO BID for bilateral mild to moderate pleural effusion Sleep study outpatient Had a care conference with patient and POA last evening. Decided to go back to the same SNF where he used to live with hospice. Pending approval. Still on BiPAP for most of the time. 2. h/o COPD: BiPAP at night, during the day try to wean patient off from BiPAP to nasal cannula if tolerated DuoNEB NEB PRN wheezing Advair Diskus 3. T2DM with hypoglycemia episode: HgA1c Hold oral hypoglycemics while inpatient Insulin Lantus 10 unit BID Correctional scale insulin AC HS Accu Chek AC HS Hypoglycemia protocol Diabetic diet 4. Grade II Diastolic CHF: Lasix 20mg PO BID Metoprolol tartrate 25mg PO BID Fluid restriction 2L/day Intake and output measures Daily weigh 5. UTI: Urine culture grew Group D strep Coverage with antibiotics, see #1 6. Essential HTN: Currently normotensive Continue Lasix and Lopressor PO 7. GINO and CKD stage IV: Avoid nephrotoxic agents Saline lock with gentle diuretics Daily CMP to trend kidney functions GI ppx: not currently indicated DVT ppx: Heparin Code status: DNI DNR Prognosis: poor Disposition: pending hospice discharge Time Spent With Patient Time: Total time spent is greater than 50% in coordination of care (as documented) at patient's floor/unit and/or counseling patient:
--- NOTE | 2021-05-16 10:18 | EKG ---
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
== END 2021-05-13 13:06 | DRG 177 ==
LOC: ED 09:59 → ICU 16:35
PROVIDERS: ADMIT Internal Medicine; ATTEND Internal Medicine